=== PATIENT | male | born 1960 | race Caucasian/White ===

== ENCOUNTER → 2017-06-02 13:12 | Outpatient (CLI) | payer BC, SELFPAY ==
[2017-06-02 16:46] LABS: Alanine Aminotransferase 19 U/L (12-78); Albumin Level 3.9 gm/dL (3.4-5.0); Albumin/Globulin Ratio 1.1 (1.1-1.8); Alkaline Phosphatase 48 U/L (46-116); Anion Gap 12.3 mEq/L (5-15); Aspartate Amino Transferase 14 U/L (15-37); Bilirubin,Total 0.5 mg/dL (0.2-1.0); Blood Urea Nitrogen 9 mg/dL (7-18); Carbon Dioxide 26 mmol/L (21.0-32.0); Chloride 105 mmol/L (98-107); Creatinine,Serum 0.83 mg/dL (0.70-1.30); Estimated Glomerular Filt Rate > 60 ml/min (>60); GFR (African American) > 60 ML/MIN (>60); Globulin 3.6 gm/dl (1.3-3.2); Glucose 85 mg/dL (74-106); Potassium 4.3 mmoL/L (3.5-5.1); Sodium 139 mmol/L (136-145); Total Protein,Serum 7.5 gm/dL (6.4-8.2)
[2017-06-02 17:01] LABS: C-Reactive Protein < 0.2 mg/L (0.0-0.9)
== END ==
PROVIDERS: PCP Family Medicine; Visit Provider Physician Assistant
DX: K50.10 Crohn's disease of large intestine without complications (principal)
CPT/HCPCS: 36415; 80053; 86140

== ENCOUNTER → 2017-06-15 13:57 | Outpatient (CLI) | payer BC, SELFPAY ==
[2017-06-15 14:16] LABS: Basophils # 0.1 K/mm3 (0-0.2); Basophils % 1.1 % (0.1-2.0); Eosinophils # 0.4 K/mm3 (0.0-0.4); Eosinophils % 5.6 % (0.1-12.0); Hematocrit 45.5 % (42.0-52.0); Lymphocytes # 1.7 K/mm3 (0.7-4.5); Lymphocytes % 22.1 K/mm3 (10-50); Mean Corpuscular HGB Conc 32.9 g/dL (31.8-35.4); Mean Corpuscular Hemoglobin 28.5 pg (27.0-31.2); Mean Corpuscular Volume 86.6 fl (80-94); Mean Platelet Volume 8.2 fl (7.4-10.4); Monocytes # 0.6 K/mm3 (0.1-1.0); Neutrophils # 4.8 K/mm3 (1.8-7.8); Neutrophils % 63.2 % (37.0-80.0); Platelet Count 258 K/mm3 (142-424); Red Blood Count 5.26 M/mm3 (4.60-6.20); White Blood Count 7.6 K/mm3 (4.8-10.8)
== END ==
PROVIDERS: PCP Physician Assistant; Visit Provider Physician Assistant
DX: K50.10 Crohn's disease of large intestine without complications (principal)
CPT/HCPCS: 36415; 85025

== ENCOUNTER → 2017-09-05 12:47 | Outpatient (CLI) | payer BC, SELFPAY ==
[2017-09-05 13:07] LABS: Basophils # 0.1 K/mm3 (0-0.2); Eosinophils # 0.4 K/mm3 (0.0-0.4); Hematocrit 46.4 % (42.0-52.0); Hemoglobin 15.2 g/dL (14.1-18.0); Lymphocytes # 1.6 K/mm3 (0.7-4.5); Mean Corpuscular HGB Conc 32.8 g/dL (31.8-35.4); Mean Corpuscular Hemoglobin 29.6 pg (27.0-31.2); Mean Corpuscular Volume 90.3 fl (80-94); Monocytes # 0.5 K/mm3 (0.1-1.0); Monocytes % 7.6 % (1.7-9.3); Neutrophils # 3.5 K/mm3 (1.8-7.8); Neutrophils % 58.3 % (37.0-80.0); Platelet Count 238 K/mm3 (142-424); Red Blood Count 5.13 M/mm3 (4.60-6.20); Red Cell Distribution Width 14.1 % (11.5-17.5); White Blood Count 5.9 K/mm3 (4.8-10.8)
[2017-09-05 14:40] LABS: Alanine Aminotransferase 23 U/L (12-78); Albumin Level 3.8 gm/dL (3.4-5.0); Albumin/Globulin Ratio 1.1 (1.1-1.8); Alkaline Phosphatase 46 U/L (46-116); Anion Gap 13.5 mEq/L (5-15); Bilirubin,Total 0.2 mg/dL (0.2-1.0); Blood Urea Nitrogen 8 mg/dL (7-18); Calcium 9.1 mg/dL (8.5-10.1); Carbon Dioxide 26 mmol/L (21.0-32.0); Chloride 106 mmol/L (98-107); Creatinine,Serum 0.73 mg/dL (0.70-1.30); Estimated Glomerular Filt Rate 111 ml/min (>60); GFR (African American) 134 ML/MIN (>60); Globulin 3.6 gm/dl (1.3-3.2); Glucose 128 mg/dL (74-106); Sodium 141 mmol/L (136-145); Total Protein,Serum 7.4 gm/dL (6.4-8.2)
[2017-09-05 14:41] LABS: Potassium 4.5 mmoL/L (3.5-5.1)
[2017-09-05 14:42] LABS: Aspartate Amino Transferase 21 U/L (15-37)
== END ==
PROVIDERS: Visit Provider Physician Assistant
DX: K50.10 Crohn's disease of large intestine without complications (principal)
CPT/HCPCS: 36415; 80053; 85025

== ENCOUNTER → 2017-12-06 09:31 | Outpatient (CLI) | payer BC, SELFPAY ==
[2017-12-06 10:56] LABS: Alanine Aminotransferase 22 U/L (12-78); Albumin Level 3.7 gm/dL (3.4-5.0); Albumin/Globulin Ratio 1.1 (1.1-1.8); Alkaline Phosphatase 47 U/L (46-116); Anion Gap 8.8 mEq/L (5-15); Aspartate Amino Transferase 14 U/L (15-37); Bilirubin,Total 0.4 mg/dL (0.2-1.0); Blood Urea Nitrogen 8 mg/dL (7-18); Calcium 9.2 mg/dL (8.5-10.1); Carbon Dioxide 30 mmol/L (21.0-32.0); Chloride 110 mmol/L (98-107); Creatinine,Serum 0.85 mg/dL (0.70-1.30); Estimated Glomerular Filt Rate 93 ml/min (>60); GFR (African American) 113 ML/MIN (>60); Globulin 3.5 gm/dl (1.3-3.2); Glucose 112 mg/dL (74-106); Potassium 4.8 mmoL/L (3.5-5.1); Sodium 144 mmol/L (136-145); Total Protein,Serum 7.2 gm/dL (6.4-8.2)
== END ==
PROVIDERS: Visit Provider Physician Assistant
DX: K50.10 Crohn's disease of large intestine without complications (principal)
CPT/HCPCS: 36415; 80053

== ENCOUNTER → 2018-05-05 13:24 | Outpatient (POV) | payer BC, SELFPAY ==
[2018-05-05 13:56] LABS: Basophils # 0.1 K/mm3 (0-0.2); Eosinophils # 0.5 K/mm3 (0.0-0.4); Hematocrit 44.9 % (42.0-52.0); Hemoglobin 14.1 g/dL (14.1-18.0); Lymphocytes # 1.8 K/mm3 (0.7-4.5); Lymphocytes % 22.6 % (10-50); Mean Corpuscular HGB Conc 31.5 g/dL (31.8-35.4); Mean Corpuscular Hemoglobin 28.6 pg (27.0-31.2); Mean Platelet Volume 7.6 fl (7.4-10.4); Monocytes # 0.5 K/mm3 (0.1-1.0); Monocytes % 6.1 % (1.7-9.3); Neutrophils % 64.4 % (37.0-80.0); Platelet Count 308 K/mm3 (142-424); Red Blood Count 4.93 M/mm3 (4.60-6.20); Red Cell Distribution Width 13.8 % (11.5-17.5); White Blood Count 7.8 K/mm3 (4.8-10.8)
[2018-05-05 14:25] LABS: Alanine Aminotransferase 24 U/L (12-78); Albumin Level 3.6 gm/dL (3.4-5.0); Albumin/Globulin Ratio 0.9 (1.1-1.8); Alkaline Phosphatase 61 U/L (46-116); Anion Gap 12.3 mEq/L (5-15); Aspartate Amino Transferase 9 U/L (15-37); Bilirubin,Total 0.3 mg/dL (0.2-1.0); Blood Urea Nitrogen 12 mg/dL (7-18); Calcium 8.7 mg/dL (8.5-10.1); Carbon Dioxide 28 mmol/L (21.0-32.0); Chloride 104 mmol/L (98-107); Creatinine,Serum 0.91 mg/dL (0.70-1.30); Estimated Glomerular Filt Rate 86 ml/min (>60); GFR (African American) 104 ML/MIN (>60); Glucose 108 mg/dL (74-106); Potassium 4.3 mmoL/L (3.5-5.1); Sodium 140 mmol/L (136-145); Total Protein,Serum 7.6 gm/dL (6.4-8.2)
== END ==
PROVIDERS: PCP Family Medicine; Visit Provider Physician Assistant
DX: K50.10 Crohn's disease of large intestine without complications (principal)
CPT/HCPCS: 36415; 80053; 85025

== ENCOUNTER → 2018-11-14 10:47 | Outpatient (CLI) | payer BC, SELFPAY ==
[2018-11-14 11:28] LABS: Basophils # 0.1 K/mm3 (0-0.2); Basophils % 1.1 % (0.1-2.0); Eosinophils # 0.3 K/mm3 (0.0-0.4); Eosinophils % 5.1 % (0.1-12.0); Hematocrit 41.5 % (42.0-52.0); Hemoglobin 13.3 g/dL (14.1-18.0); Lymphocytes # 1.5 K/mm3 (0.7-4.5); Lymphocytes % 25.2 % (10-50); Mean Corpuscular HGB Conc 32.1 g/dL (31.8-35.4); Mean Corpuscular Hemoglobin 27.4 pg (27.0-31.2); Mean Corpuscular Volume 85.4 fl (80-94); Mean Platelet Volume 7.7 fl (7.4-10.4); Monocytes # 0.4 K/mm3 (0.1-1.0); Neutrophils # 3.6 K/mm3 (1.8-7.8); Neutrophils % 61.5 % (37.0-80.0); Platelet Count 241 K/mm3 (142-424); Red Blood Count 4.86 M/mm3 (4.60-6.20); Red Cell Distribution Width 13.9 % (11.5-17.5); White Blood Count 5.9 K/mm3 (4.8-10.8)
[2018-11-14 12:11] LABS: Alanine Aminotransferase 25 U/L (12-78); Albumin Level 3.5 gm/dL (3.4-5.0); Alkaline Phosphatase 46 U/L (46-116); Anion Gap 11.5 mEq/L (5-15); Aspartate Amino Transferase 13 U/L (15-37); Bilirubin,Total 0.3 mg/dL (0.2-1.0); Blood Urea Nitrogen 10 mg/dL (7-18); Calcium 8.8 mg/dL (8.5-10.1); Carbon Dioxide 28 mmol/L (21.0-32.0); Chloride 107 mmol/L (98-107); Creatinine,Serum 0.85 mg/dL (0.70-1.30); Estimated Glomerular Filt Rate 93 ml/min (>60); GFR (African American) 112 ML/MIN (>60); Globulin 3.5 gm/dl (1.3-3.2); Glucose 110 mg/dL (74-106); Potassium 4.5 mmoL/L (3.5-5.1); Sodium 142 mmol/L (136-145)
== END ==
PROVIDERS: Visit Provider Physician Assistant
DX: K50.10 Crohn's disease of large intestine without complications (principal)
CPT/HCPCS: 36415; 80053; 85025

== ENCOUNTER → 2019-06-01 11:35 | Outpatient (CLI) | payer BC, SELFPAY ==
[2019-06-01 12:04] LABS: Basophils % 0.8 % (0.1-2.0); Eosinophils # 0.5 K/mm3 (0.0-0.4); Eosinophils % 9.4 % (0.1-12.0); Hematocrit 43.9 % (42.0-52.0); Hemoglobin 14.3 g/dL (14.1-18.0); Lymphocytes # 1.3 K/mm3 (0.7-4.5); Lymphocytes % 23.2 % (10-50); Mean Corpuscular HGB Conc 32.6 g/dL (31.8-35.4); Mean Corpuscular Hemoglobin 29.1 pg (27.0-31.2); Mean Corpuscular Volume 89.2 fl (80-94); Mean Platelet Volume 8.3 fl (7.4-10.4); Monocytes # 0.4 K/mm3 (0.1-1.0); Monocytes % 7.8 % (1.7-9.3); Neutrophils # 3.3 K/mm3 (1.8-7.8); Neutrophils % 58.8 % (37.0-80.0); Platelet Count 243 K/mm3 (142-424); Red Blood Count 4.93 M/mm3 (4.60-6.20); Red Cell Distribution Width 14.1 % (11.5-17.5); White Blood Count 5.6 K/mm3 (4.8-10.8)
[2019-06-01 12:38] LABS: Alanine Aminotransferase 17 U/L (12-78); Albumin Level 3.6 gm/dL (3.4-5.0); Alkaline Phosphatase 46 U/L (46-116); Anion Gap 13.3 mEq/L (5-15); Aspartate Amino Transferase 10 U/L (15-37); Bilirubin,Total 0.3 mg/dL (0.2-1.0); Blood Urea Nitrogen 12 mg/dL (7-18); Calcium 8.7 mg/dL (8.5-10.1); Carbon Dioxide 28 mmol/L (21.0-32.0); Chloride 106 mmol/L (98-107); Creatinine,Serum 0.78 mg/dL (0.70-1.30); Estimated Glomerular Filt Rate 103 ml/min (>60); GFR (African American) 124 ML/MIN (>60); Globulin 3.5 gm/dl (1.3-3.2); Glucose 131 mg/dL (74-106); Potassium 4.3 mmoL/L (3.5-5.1); Sodium 143 mmol/L (136-145); Total Protein,Serum 7.1 gm/dL (6.4-8.2)
[2019-06-06 11:03] LABS: QuantiFERON-TB Gold Plus Negative (Negative)
== END ==
PROVIDERS: Visit Provider Physician Assistant
DX: K50.10 Crohn's disease of large intestine without complications (principal)
CPT/HCPCS: 36415; 80053; 85025; 86480

== ENCOUNTER 2019-07-18 08:57 | Outpatient (CLI) | payer BC, SELFPAY ==
[2019-07-18 08:58] VITALS: BMI 39.9
[2019-07-18 09:16] LABS: Basophils # 0.1 K/mm3 (0-0.2); Basophils % 1.1 % (0.1-2.0); Eosinophils # 0.7 K/mm3 (0.0-0.4); Eosinophils % 10.6 % (0.1-12.0); Hematocrit 45.5 % (42.0-52.0); Hemoglobin 14.9 g/dL (14.1-18.0); Lymphocytes # 1.6 K/mm3 (0.7-4.5); Lymphocytes % 23.7 % (10-50); Mean Corpuscular HGB Conc 32.6 g/dL (31.8-35.4); Mean Corpuscular Hemoglobin 29.5 pg (27.0-31.2); Mean Corpuscular Volume 90.5 fl (80-94); Mean Platelet Volume 8.6 fl (7.4-10.4); Monocytes # 0.4 K/mm3 (0.1-1.0); Monocytes % 6.2 % (1.7-9.3); Neutrophils # 3.9 K/mm3 (1.8-7.8); Neutrophils % 58.4 % (37.0-80.0); Platelet Count 263 K/mm3 (142-424); Red Blood Count 5.03 M/mm3 (4.60-6.20); White Blood Count 6.7 K/mm3 (4.8-10.8)
[2019-07-18 09:25] VITALS: BP 150/72; PULSE 87; RESP 18
[2019-07-18 09:26] LABS: Alanine Aminotransferase 26 U/L (12-78); Albumin Level 4.2 g/dl (3.5-5.0); Albumin/Globulin Ratio 1.3 (1.1-1.8); Alkaline Phosphatase 44 U/L (38-126); Anion Gap 10.9 mEq/L (5-15); Aspartate Amino Transferase 24 U/L (17-59); Bilirubin,Total 0.4 mg/dl (0.2-1.3); Blood Urea Nitrogen 9 mg/dl (9-20); Calcium 9.3 mg/dl (8.4-10.2); Carbon Dioxide 27 mmol/L (22.0-30.0); Chloride 104 mmol/L (98-107); Creatinine Clearance Estimated 185 mL/min (50-200); Estimated Glomerular Filt Rate 99 ml/min (>60); GFR (African American) 120 ML/MIN (>60); Globulin 3.3 g/dL (1.3-3.2); Glucose 154 mg/dl (74-100); Potassium 3.9 mmoL/L (3.5-5.1); Sodium 138 mmol/L (136-145); Total Protein,Serum 7.5 g/dl (6.3-8.2)
[2019-07-18 09:31] LABS: C-Reactive Protein 0.8 mg/L (0-4)
[2019-07-18 09:40] VITALS: BP 108/73; PULSE 85; RESP 18
[2019-07-18 09:55] VITALS: BP 107/62; PULSE 80; RESP 18
[2019-07-18 10:07] VITALS: BP 107/62; PULSE 80; RESP 18
== END 2019-07-18 10:07 | disposition home or self-care (01) ==
LOC: INF 08:57
PROVIDERS: Visit Provider Physician Assistant
DX: K50.10 Crohn's disease of large intestine without complications (principal)
CPT/HCPCS: 80053; 85025; 86140; 96413; J3380

== ENCOUNTER 2019-08-01 09:05 | Outpatient (CLI) | payer BC, SELFPAY ==
[2019-08-01 09:06] VITALS: BMI 39.9
[2019-08-01 09:21] LABS: Basophils # 0.1 K/mm3 (0-0.2); Chloride 106 mmol/L (98-107); Eosinophils # 0.7 K/mm3 (0.0-0.4); Eosinophils % 11.4 % (0.1-12.0); Hemoglobin 14.5 g/dL (14.1-18.0); Lymphocytes # 1.5 K/mm3 (0.7-4.5); Lymphocytes % 24.1 % (10-50); Mean Corpuscular Hemoglobin 29.2 pg (27.0-31.2); Mean Corpuscular Volume 88.3 fl (80-94); Monocytes # 0.4 K/mm3 (0.1-1.0); Monocytes % 5.7 % (1.7-9.3); Neutrophils # 3.6 K/mm3 (1.8-7.8); Neutrophils % 57.7 % (37.0-80.0); Platelet Count 237 K/mm3 (142-424); Potassium 4.1 mmoL/L (3.5-5.1); Red Blood Count 4.98 M/mm3 (4.60-6.20); Sodium 140 mmol/L (136-145); White Blood Count 6.2 K/mm3 (4.8-10.8)
[2019-08-01 09:23] LABS: Blood Urea Nitrogen 9 mg/dl (9-20); Creatinine Clearance Estimated 185 mL/min (50-200); Estimated Glomerular Filt Rate 99 ml/min (>60); GFR (African American) 120 ML/MIN (>60)
[2019-08-01 09:24] LABS: Alanine Aminotransferase 24 U/L (12-78); Albumin Level 4.1 g/dl (3.5-5.0); Albumin/Globulin Ratio 1.3 (1.1-1.8); Alkaline Phosphatase 43 U/L (38-126); Anion Gap 10.1 mEq/L (5-15); Aspartate Amino Transferase 25 U/L (17-59); Bilirubin,Total 0.5 mg/dl (0.2-1.3); Calcium 9.2 mg/dl (8.4-10.2); Carbon Dioxide 28 mmol/L (22.0-30.0); Globulin 3.1 g/dL (1.3-3.2); Glucose 134 mg/dl (74-100); Total Protein,Serum 7.2 g/dl (6.3-8.2)
[2019-08-01 09:49] VITALS: BP 148/99; PULSE 78; RESP 18; TEMP 36.8; O2SAT 96
[2019-08-01 09:53] LABS: C-Reactive Protein 1.4 mg/L (0-4)
[2019-08-01 10:19] VITALS: BP 134/94; PULSE 72; RESP 18; O2SAT 97
[2019-08-01 10:30] VITALS: BP 151/92; PULSE 80; RESP 18; O2SAT 97
== END 2019-08-01 10:30 | disposition home or self-care (01) ==
LOC: INF 09:05
PROVIDERS: Visit Provider Physician Assistant
DX: K50.10 Crohn's disease of large intestine without complications (principal)
CPT/HCPCS: 80053; 85025; 86140; 96413; J3380

== ENCOUNTER 2019-08-29 08:49 | Outpatient (CLI) | payer BC, SELFPAY ==
[2019-08-29 08:50] VITALS: BMI 39.9
[2019-08-29 09:09] LABS: Basophils # 0.1 K/mm3 (0-0.2); Eosinophils # 0.7 K/mm3 (0.0-0.4); Eosinophils % 10.3 % (0.1-12.0); Hematocrit 43.8 % (42.0-52.0); Hemoglobin 14.3 g/dL (14.1-18.0); Lymphocytes # 1.4 K/mm3 (0.7-4.5); Lymphocytes % 22.2 % (10-50); Mean Corpuscular HGB Conc 32.7 g/dL (31.8-35.4); Mean Corpuscular Volume 88.8 fl (80-94); Mean Platelet Volume 8.4 fl (7.4-10.4); Monocytes # 0.4 K/mm3 (0.1-1.0); Neutrophils # 3.9 K/mm3 (1.8-7.8); Neutrophils % 60.4 % (37.0-80.0); Platelet Count 224 K/mm3 (142-424); Red Blood Count 4.94 M/mm3 (4.60-6.20); Red Cell Distribution Width 13.8 % (11.5-17.5); White Blood Count 6.4 K/mm3 (4.8-10.8)
[2019-08-29 09:13] LABS: Chloride 106 mmol/L (98-107); Sodium 140 mmol/L (136-145)
[2019-08-29 09:16] LABS: Alanine Aminotransferase 35 U/L (12-78); Albumin Level 4.2 g/dl (3.5-5.0); Albumin/Globulin Ratio 1.4 (1.1-1.8); Alkaline Phosphatase 53 U/L (38-126); Aspartate Amino Transferase 39 U/L (17-59); Bilirubin,Total 0.4 mg/dl (0.2-1.3); Blood Urea Nitrogen 9 mg/dl (9-20); Carbon Dioxide 26 mmol/L (22.0-30.0); Creatinine Clearance Estimated 211 mL/min (50-200); Estimated Glomerular Filt Rate 116 ml/min (>60); GFR (African American) 140 ML/MIN (>60); Globulin 3.1 g/dL (1.3-3.2); Glucose 128 mg/dl (74-100); Total Protein,Serum 7.3 g/dl (6.3-8.2)
[2019-08-29 09:22] LABS: C-Reactive Protein 3.2 mg/L (0-4)
[2019-08-29 09:28] VITALS: BP 153/85; PULSE 89; RESP 18; TEMP 36.6; O2SAT 96
[2019-08-29 10:09] VITALS: BP 150/73; PULSE 90; RESP 18; O2SAT 97
== END 2019-08-29 10:09 | disposition home or self-care (01) ==
LOC: INF 08:49
PROVIDERS: Visit Provider Physician Assistant
DX: K50.10 Crohn's disease of large intestine without complications (principal)
CPT/HCPCS: 80053; 85025; 86140; 96413; J3380

== ENCOUNTER 2019-10-24 09:09 | Outpatient (CLI) | payer BC, SELFPAY ==
[2019-10-24 09:12] VITALS: BMI 39.9
[2019-10-24 09:28] LABS: Basophils # 0.2 K/mm3 (0-0.2); Basophils % 2.7 % (0.1-2.0); Eosinophils # 0.7 K/mm3 (0.0-0.4); Eosinophils % 9.8 % (0.1-12.0); Hematocrit 42.1 % (42.0-52.0); Hemoglobin 14.6 g/dL (14.1-18.0); Lymphocytes # 1.9 K/mm3 (0.7-4.5); Lymphocytes % 27.2 % (10-50); Mean Corpuscular HGB Conc 34.7 g/dL (31.8-35.4); Mean Corpuscular Hemoglobin 29.8 pg (27.0-31.2); Mean Corpuscular Volume 85.9 fl (80-94); Mean Platelet Volume 8.3 fl (7.4-10.4); Monocytes # 0.5 K/mm3 (0.1-1.0); Monocytes % 6.9 % (1.7-9.3); Neutrophils # 3.7 K/mm3 (1.8-7.8); Neutrophils % 53.3 % (37.0-80.0); Platelet Count 239 K/mm3 (142-424); Red Cell Distribution Width 14.1 % (11.5-17.5); White Blood Count 6.9 K/mm3 (4.8-10.8)
[2019-10-24 09:40] VITALS: BP 134/81; PULSE 78; RESP 18; TEMP 36.6; O2SAT 98
[2019-10-24 10:09] LABS: Chloride 106 mmol/L (98-107); Sodium 140 mmol/L (136-145)
[2019-10-24 10:10] LABS: Potassium 3.9 mmoL/L (3.5-5.1)
[2019-10-24 10:12] LABS: Alanine Aminotransferase 31 U/L (12-78); Albumin/Globulin Ratio 1.2 (1.1-1.8); Alkaline Phosphatase 60 U/L (38-126); Anion Gap 10.9 mEq/L (5-15); Aspartate Amino Transferase 29 U/L (17-59); Bilirubin,Total 0.8 mg/dl (0.2-1.3); Blood Urea Nitrogen 11 mg/dl (9-20); Carbon Dioxide 27 mmol/L (22.0-30.0); Creatinine Clearance Estimated 185 mL/min (50-200); Estimated Glomerular Filt Rate 99 ml/min (>60); GFR (African American) 120 ML/MIN (>60); Globulin 3.3 g/dL (1.3-3.2); Total Protein,Serum 7.3 g/dl (6.3-8.2)
[2019-10-24 10:13] LABS: Calcium 8.9 mg/dl (8.4-10.2); Glucose 128 mg/dl (74-100)
[2019-10-24 10:14] VITALS: BP 124/71; PULSE 68; RESP 18; O2SAT 96
[2019-10-24 10:18] LABS: C-Reactive Protein 3.3 mg/L (0-4)
== END 2019-10-24 10:14 | disposition home or self-care (01) ==
LOC: INF 09:09
PROVIDERS: Visit Provider Physician Assistant
DX: K50.10 Crohn's disease of large intestine without complications (principal)
CPT/HCPCS: 36415; 80053; 85025; 86140; 96413; J3380

== ENCOUNTER 2019-12-19 08:45 | Outpatient (CLI) | payer BC, SELFPAY ==
[2019-12-19 08:47] VITALS: BMI 39.7
[2019-12-19 09:18] VITALS: BP 135/89; PULSE 76; RESP 18; TEMP 36.3; O2SAT 96
[2019-12-19 09:25] LABS: Basophils # 0.1 K/mm3 (0-0.2); Basophils % 0.9 % (0.1-2.0); Eosinophils # 0.6 K/mm3 (0.0-0.4); Eosinophils % 9.8 % (0.1-12.0); Hematocrit 42.8 % (42.0-52.0); Hemoglobin 14.4 g/dL (14.1-18.0); Lymphocytes # 1.7 K/mm3 (0.7-4.5); Lymphocytes % 27.7 % (10-50); Mean Corpuscular HGB Conc 33.6 g/dL (31.8-35.4); Mean Corpuscular Hemoglobin 29.1 pg (27.0-31.2); Mean Corpuscular Volume 86.8 fl (80-94); Mean Platelet Volume 8.6 fl (7.4-10.4); Monocytes # 0.4 K/mm3 (0.1-1.0); Neutrophils # 3.5 K/mm3 (1.8-7.8); Neutrophils % 55.6 % (37.0-80.0); Platelet Count 217 K/mm3 (142-424); Red Blood Count 4.93 M/mm3 (4.60-6.20); Red Cell Distribution Width 14.4 % (11.5-17.5); White Blood Count 6.3 K/mm3 (4.8-10.8)
[2019-12-19 09:32] LABS: Chloride 105 mmol/L (98-107); Potassium 4.1 mmoL/L (3.5-5.1); Sodium 141 mmol/L (136-145)
[2019-12-19 09:34] LABS: Alanine Aminotransferase 24 U/L (12-78); Aspartate Amino Transferase 28 U/L (17-59); Blood Urea Nitrogen 10 mg/dl (9-20); Creatinine Clearance Estimated 210 mL/min (50-200); Estimated Glomerular Filt Rate 116 ml/min (>60); GFR (African American) 140 ML/MIN (>60)
[2019-12-19 09:35] LABS: Albumin/Globulin Ratio 1.2 (1.1-1.8); Alkaline Phosphatase 48 U/L (38-126); Anion Gap 13.1 mEq/L (5-15); Bilirubin,Total 0.5 mg/dl (0.2-1.3); Calcium 9.2 mg/dl (8.4-10.2); Carbon Dioxide 27 mmol/L (22.0-30.0); Globulin 3.3 g/dL (1.3-3.2); Glucose 130 mg/dl (74-100); Total Protein,Serum 7.3 g/dl (6.3-8.2)
[2019-12-19 09:40] LABS: C-Reactive Protein 1.2 mg/L (0-4)
[2019-12-19 10:00] VITALS: BP 131/82; PULSE 79; RESP 18; O2SAT 97
== END 2019-12-19 10:00 | disposition home or self-care (01) ==
LOC: INF 08:45
PROVIDERS: Visit Provider Physician Assistant
DX: K50.10 Crohn's disease of large intestine without complications (principal)
CPT/HCPCS: 36415; 80053; 85025; 86140; 96413; J3380

== ENCOUNTER 2020-02-13 09:07 | Outpatient (CLI) | payer BC, SELFPAY ==
[2020-02-13 09:11] VITALS: BMI 39.7
[2020-02-13 09:30] VITALS: BP 160/104; PULSE 85; RESP 18; TEMP 36.4; O2SAT 96
[2020-02-13 09:31] LABS: Basophils # 0.1 K/mm3 (0-0.2); Basophils % 1.2 % (0.1-2.0); Eosinophils # 0.6 K/mm3 (0.0-0.4); Hematocrit 45.4 % (42.0-52.0); Hemoglobin 15.3 g/dL (14.1-18.0); Lymphocytes # 1.8 K/mm3 (0.7-4.5); Mean Corpuscular HGB Conc 33.8 g/dL (31.8-35.4); Mean Corpuscular Hemoglobin 29.5 pg (27.0-31.2); Mean Corpuscular Volume 87.4 fl (80-94); Mean Platelet Volume 8.1 fl (7.4-10.4); Monocytes # 0.5 K/mm3 (0.1-1.0); Monocytes % 6.9 % (1.7-9.3); Neutrophils # 3.6 K/mm3 (1.8-7.8); Neutrophils % 55.9 % (37.0-80.0); Platelet Count 228 K/mm3 (142-424); Red Blood Count 5.19 M/mm3 (4.60-6.20); Red Cell Distribution Width 14.2 % (11.5-17.5); White Blood Count 6.5 K/mm3 (4.8-10.8)
[2020-02-13 09:34] LABS: Chloride 104 mmol/L (98-107); Potassium 4.3 mmoL/L (3.5-5.1); Sodium 141 mmol/L (136-145)
[2020-02-13 09:37] LABS: Alanine Aminotransferase 21 U/L (12-78); Albumin Level 4.4 g/dl (3.5-5.0); Albumin/Globulin Ratio 1.3 (1.1-1.8); Alkaline Phosphatase 48 U/L (38-126); Anion Gap 14.3 mEq/L (5-15); Aspartate Amino Transferase 23 U/L (17-59); Bilirubin,Total 0.6 mg/dl (0.2-1.3); Blood Urea Nitrogen 9 mg/dl (9-20); Calcium 9.7 mg/dl (8.4-10.2); Carbon Dioxide 27 mmol/L (22.0-30.0); Creatinine Clearance Estimated 184 mL/min (50-200); Estimated Glomerular Filt Rate 99 ml/min (>60); GFR (African American) 120 ML/MIN (>60); Globulin 3.4 g/dL (1.3-3.2); Glucose 133 mg/dl (74-100); Total Protein,Serum 7.8 g/dl (6.3-8.2)
[2020-02-13 09:43] LABS: C-Reactive Protein 1.9 mg/L (0-4)
[2020-02-13 10:00] VITALS: BP 159/97; PULSE 75; RESP 18; O2SAT 97
[2020-02-13 10:10] VITALS: BP 155/99; PULSE 81; RESP 18; O2SAT 97
== END 2020-02-13 10:15 | disposition home or self-care (01) ==
LOC: INF 09:07
PROVIDERS: Visit Provider Physician Assistant
DX: K50.90 Crohn's disease, unspecified, without complications (principal)
CPT/HCPCS: 80053; 85025; 86140; 96413; J3380

== ENCOUNTER 2020-04-09 08:45 | Outpatient (CLI) | payer BC, SELFPAY ==
[2020-04-09 08:54] VITALS: BMI 39.6
[2020-04-09 09:40] VITALS: BP 131/87; PULSE 69; RESP 18; TEMP 36.6; O2SAT 96
[2020-04-09 09:54] LABS: Basophils # 0.1 K/mm3 (0-0.2); Basophils % 1.3 % (0.1-2.0); Eosinophils # 0.9 K/mm3 (0.0-0.4); Eosinophils % 14.2 % (0.1-12.0); Hematocrit 42.2 % (42.0-52.0); Hemoglobin 13.4 g/dL (14.1-18.0); Lymphocytes # 1.5 K/mm3 (0.7-4.5); Lymphocytes % 23.2 % (10-50); Mean Corpuscular HGB Conc 31.7 g/dL (31.8-35.4); Mean Corpuscular Hemoglobin 27.8 pg (27.0-31.2); Mean Corpuscular Volume 87.7 fl (80-94); Monocytes # 0.4 K/mm3 (0.1-1.0); Neutrophils # 3.4 K/mm3 (1.8-7.8); Neutrophils % 54.3 % (37.0-80.0); Platelet Count 203 K/mm3 (142-424); Red Blood Count 4.81 M/mm3 (4.60-6.20); Red Cell Distribution Width 13.8 % (11.5-17.5); White Blood Count 6.3 K/mm3 (4.8-10.8)
[2020-04-09 09:55] VITALS: BP 130/87; PULSE 70; RESP 18
[2020-04-09 10:01] LABS: Chloride 107 mmol/L (98-107); Sodium 141 mmol/L (136-145)
[2020-04-09 10:04] LABS: Alanine Aminotransferase 18 U/L (12-78); Albumin Level 4.1 g/dl (3.5-5.0); Albumin/Globulin Ratio 1.2 (1.1-1.8); Alkaline Phosphatase 50 U/L (38-126); Aspartate Amino Transferase 24 U/L (17-59); Bilirubin,Total 0.5 mg/dl (0.2-1.3); Blood Urea Nitrogen 10 mg/dl (9-20); Carbon Dioxide 27 mmol/L (22.0-30.0); Creatinine Clearance Estimated 183 mL/min (50-200); Estimated Glomerular Filt Rate 99 ml/min (>60); GFR (African American) 120 ML/MIN (>60); Globulin 3.3 g/dL (1.3-3.2); Total Protein,Serum 7.4 g/dl (6.3-8.2)
[2020-04-09 10:05] LABS: Calcium 9.2 mg/dl (8.4-10.2); Glucose 125 mg/dl (74-100)
[2020-04-09 10:09] LABS: C-Reactive Protein 1.7 mg/L (0-4)
[2020-04-09 10:10] VITALS: BP 126/80; PULSE 63; RESP 18
== END 2020-04-09 10:20 | disposition home or self-care (01) ==
LOC: INF 08:57
PROVIDERS: Visit Provider Physician Assistant
DX: K50.90 Crohn's disease, unspecified, without complications (principal)
CPT/HCPCS: 80053; 85025; 86140; 96413; J3380

== ENCOUNTER 2020-06-04 08:50 | Outpatient (CLI) | payer BC, SELFPAY ==
[2020-06-04 08:59] VITALS: BMI 39.6
[2020-06-04 09:29] LABS: Basophils # 0.1 K/mm3 (0-0.2); Basophils % 1.2 % (0.1-2.0); Eosinophils # 0.9 K/mm3 (0.0-0.4); Eosinophils % 12.5 % (0.1-12.0); Hematocrit 44.1 % (42.0-52.0); Hemoglobin 15.3 g/dL (14.1-18.0); Lymphocytes # 1.9 K/mm3 (0.7-4.5); Lymphocytes % 25.6 % (10-50); Mean Corpuscular HGB Conc 34.7 g/dL (31.8-35.4); Mean Corpuscular Hemoglobin 29.3 pg (27.0-31.2); Mean Corpuscular Volume 84.3 fl (80-94); Mean Platelet Volume 8.6 fl (7.4-10.4); Monocytes # 0.5 K/mm3 (0.1-1.0); Monocytes % 6.7 % (1.7-9.3); Neutrophils # 4.1 K/mm3 (1.8-7.8); Platelet Count 254 K/mm3 (142-424); Red Blood Count 5.23 M/mm3 (4.60-6.20); Red Cell Distribution Width 14.4 % (11.5-17.5); White Blood Count 7.5 K/mm3 (4.8-10.8)
[2020-06-04 09:38] LABS: Chloride 105 mmol/L (98-107); Sodium 140 mmol/L (136-145)
[2020-06-04 09:40] VITALS: BP 146/95; PULSE 88; RESP 18; TEMP 36.7; O2SAT 98
[2020-06-04 09:41] LABS: Alanine Aminotransferase 20 U/L (12-78); Albumin Level 4.3 g/dl (3.5-5.0); Albumin/Globulin Ratio 1.1 (1.1-1.8); Alkaline Phosphatase 59 U/L (38-126); Aspartate Amino Transferase 23 U/L (17-59); Bilirubin,Total 0.6 mg/dl (0.2-1.3); Blood Urea Nitrogen 10 mg/dl (9-20); Carbon Dioxide 27 mmol/L (22.0-30.0); Creatinine Clearance Estimated 183 mL/min (50-200); Estimated Glomerular Filt Rate 99 ml/min (>60); GFR (African American) 120 ML/MIN (>60); Globulin 3.8 g/dL (1.3-3.2); Total Protein,Serum 8.1 g/dl (6.3-8.2)
[2020-06-04 09:42] LABS: Calcium 9.3 mg/dl (8.4-10.2); Glucose 145 mg/dl (74-100)
[2020-06-04 09:55] VITALS: BP 133/89; PULSE 82; RESP 18; O2SAT 95
[2020-06-04 09:56] LABS: C-Reactive Protein 1.7 mg/L (0-4)
[2020-06-04 10:15] VITALS: BP 137/83; PULSE 78; RESP 18
[2020-06-08 08:05] LABS: QuantiFERON-TB Gold Plus Negative (Negative)
== END 2020-06-04 10:30 | disposition home or self-care (01) ==
LOC: INF 08:57
PROVIDERS: Visit Provider Physician Assistant
DX: K50.10 Crohn's disease of large intestine without complications (principal)
CPT/HCPCS: 80053; 85025; 86140; 86480; 96413; J3380

== ENCOUNTER → 2020-07-30 19:43 | Outpatient (CLI) | payer BC, SELFPAY ==
[2020-07-30 20:10] LABS: Basophils # 0.1 K/mm3 (0-0.2); Eosinophils # 0.7 K/mm3 (0.0-0.4); Hematocrit 41.6 % (42.0-52.0); Hemoglobin 13.9 g/dL (14.1-18.0); Lymphocytes # 2.5 K/mm3 (0.7-4.5); Lymphocytes % 30.6 % (10-50); Mean Corpuscular HGB Conc 33.4 g/dL (31.8-35.4); Mean Corpuscular Hemoglobin 28.6 pg (27.0-31.2); Mean Corpuscular Volume 85.6 fl (80-94); Mean Platelet Volume 10.9 fl (7.4-10.4); Monocytes # 0.6 K/mm3 (0.1-1.0); Monocytes % 7.2 % (1.7-9.3); Neutrophils # 4.3 K/mm3 (1.8-7.8); Neutrophils % 53.2 % (37.0-80.0); Platelet Count 235 K/mm3 (142-424); Red Blood Count 4.86 M/mm3 (4.60-6.20); Red Cell Distribution Width 14.1 % (11.5-17.5); White Blood Count 8.2 K/mm3 (4.8-10.8)
== END ==
PROVIDERS: Visit Provider Physician Assistant
DX: K50.10 Crohn's disease of large intestine without complications (principal); I10 Essential (primary) hypertension; E55.9 Vitamin D deficiency, unspecified; E66.01 Morbid (severe) obesity due to excess calories; M25.549 Pain in joints of unspecified hand; R21 Rash and other nonspecific skin eruption
CPT/HCPCS: 80053; 85025; 86140

== ENCOUNTER → 2022-06-24 12:54 | Outpatient (CLI) | payer BC, SELFPAY ==
[2022-06-26 23:49] LABS: QuantiFERON-TB Gold Plus Negative (Negative)
== END ==
PROVIDERS: PCP Family Medicine; Visit Provider Physician Assistant
DX: K50.80 Crohn's disease of both small and large intestine without complications (principal)
CPT/HCPCS: 36415; 86480

== ENCOUNTER 2024-01-06 08:01 | Outpatient (CLI) | payer BC, SELFPAY ==
[2024-01-06 08:14] VITALS: BMI 36.2
[2024-01-06 08:35] LABS: Basophils # 0.1 K/mm3 (0-0.2); Basophils % 1.3 % (0.1-2.0); Eosinophils # 1.1 K/mm3 (0.0-0.4); Hemoglobin 14.3 g/dL (14.1-18.0); Lymphocytes # 1.6 K/mm3 (0.7-4.5); Mean Corpuscular HGB Conc 31.8 g/dL (31.8-35.4); Mean Corpuscular Hemoglobin 29.2 pg (27.0-31.2); Mean Corpuscular Volume 91.9 fl (80-94); Mean Platelet Volume 7.9 fl (7.4-10.4); Monocytes # 0.3 K/mm3 (0.1-1.0); Monocytes % 5.2 % (1.7-9.3); Neutrophils # 3.1 K/mm3 (1.8-7.8); Neutrophils % 50.5 % (37.0-80.0); Platelet Count 248 K/mm3 (142-424); Red Cell Distribution Width 14.2 % (11.5-17.5); White Blood Count 6.2 K/mm3 (4.8-10.8)
[2024-01-06] MEDS: VEDOLIZUMAB 300 MG in 0.9 % SODIUM CHLORIDE 250 ML 500 MG IV (08:40)
[2024-01-06] MEDS: SODIUM CHLORIDE 0.9% 50ML BAG 50 ML IV (08:40)
[2024-01-06 08:45] VITALS: BP 148/96; PULSE 81; RESP 18; O2SAT 96
[2024-01-06 08:46] LABS: Chloride 111 mmol/L (98-107); Potassium 3.5 mmoL/L (3.5-5.1); Sodium 140 mmol/L (136-145)
[2024-01-06 08:48] LABS: Blood Urea Nitrogen 8 mg/dl (9-20); Creatinine Clearance Estimated 128 mL/min (50-200); Estimated Glomerular Filt Rate 98 ml/min (>60); GFR (African American) 119 ML/MIN (>60)
[2024-01-06 08:49] LABS: Alanine Aminotransferase 25 U/L (12-78); Albumin/Globulin Ratio 1.5 (1.1-1.8); Alkaline Phosphatase 47 U/L (38-126); Anion Gap 7.5 mEq/L (5-15); Aspartate Amino Transferase 30 U/L (17-59); Bilirubin,Total 0.8 mg/dl (0.2-1.3); Calcium 8.8 mg/dl (8.4-10.2); Carbon Dioxide 25 mmol/L (22.0-30.0); Globulin 2.7 g/dL (1.3-3.2); Glucose 135 mg/dl (74-100); Total Protein,Serum 6.7 g/dl (6.3-8.2)
[2024-01-06 08:54] LABS: C-Reactive Protein 0.6 mg/L (0-4)
[2024-01-06 09:30] VITALS: BP 144/81; PULSE 87; RESP 18; O2SAT 97
== END 2024-01-06 09:30 | disposition home or self-care (01) ==
LOC: INF 08:01
PROVIDERS: PCP Family Medicine; Visit Provider Physician Assistant
DX: K50.80 Crohn's disease of both small and large intestine without complications (principal)
CPT/HCPCS: 80053; 85025; 86140; 96413; J3380

== ENCOUNTER 2024-03-02 08:19 | Outpatient (CLI) | payer BC, SELFPAY ==
[2024-03-02] MEDS: VEDOLIZUMAB 300 MG in 0.9 % SODIUM CHLORIDE 250 ML 500 MG IV (08:45)
[2024-03-02] MEDS: SODIUM CHLORIDE 0.9% 50ML BAG 50 ML IV (08:45)
[2024-03-02 08:51] VITALS: BP 149/94; PULSE 74; RESP 18; TEMP 36.5; O2SAT 95
[2024-03-02 09:19] VITALS: BMI 36.2
[2024-03-02 09:20] VITALS: BP 149/94; PULSE 68; RESP 20; TEMP 36.4; O2SAT 97
[2024-03-02 09:34] LABS: Basophils # 0.1 K/mm3 (0-0.2); Basophils % 1.2 % (0.1-2.0); Eosinophils # 1.4 K/mm3 (0.0-0.4); Eosinophils % 20.1 % (0.1-12.0); Hematocrit 44.5 % (42.0-52.0); Hemoglobin 14.5 g/dL (14.1-18.0); Lymphocytes # 1.9 K/mm3 (0.7-4.5); Mean Corpuscular HGB Conc 32.5 g/dL (31.8-35.4); Mean Corpuscular Hemoglobin 29.9 pg (27.0-31.2); Mean Platelet Volume 7.6 fl (7.4-10.4); Monocytes # 0.5 K/mm3 (0.1-1.0); Monocytes % 6.7 % (1.7-9.3); Neutrophils # 3.1 K/mm3 (1.8-7.8); Platelet Count 245 K/mm3 (142-424); Red Blood Count 4.84 M/mm3 (4.60-6.20); Red Cell Distribution Width 14.2 % (11.5-17.5); White Blood Count 6.9 K/mm3 (4.8-10.8)
[2024-03-02 09:37] LABS: Alanine Aminotransferase 21 U/L (12-78); Albumin Level 4.1 g/dl (3.5-5.0); Albumin/Globulin Ratio 1.6 (1.1-1.8); Alkaline Phosphatase 49 U/L (38-126); Anion Gap 8.7 mEq/L (5-15); Aspartate Amino Transferase 31 U/L (17-59); Blood Urea Nitrogen 12 mg/dl (9-20); Calcium 9.1 mg/dl (8.4-10.2); Carbon Dioxide 25 mmol/L (22.0-30.0); Chloride 106 mmol/L (98-107); Creatinine Clearance Estimated 128 mL/min (50-200); Estimated Glomerular Filt Rate 114 ml/min (>60); GFR (African American) 138 ML/MIN (>60); Globulin 2.6 g/dL (1.3-3.2); Glucose 107 mg/dl (74-100); Potassium 3.7 mmoL/L (3.5-5.1); Sodium 136 mmol/L (136-145); Total Protein,Serum 6.7 g/dl (6.3-8.2)
[2024-03-02 09:42] LABS: C-Reactive Protein 0.8 mg/L (0-4)
== END 2024-03-02 09:30 | disposition home or self-care (01) ==
LOC: INF 08:20
PROVIDERS: PCP Family Medicine; Visit Provider Physician Assistant
DX: K50.10 Crohn's disease of large intestine without complications (principal)
CPT/HCPCS: 80053; 85025; 86140; 96413; J3380

== ENCOUNTER 2024-04-30 08:19 | Outpatient (CLI) | payer BC, SELFPAY ==
--- OUTSIDE RECORDS SUMMARY | 2024-04-30 08:23 | XMS_ITS | Encounter Summary ---
Author Organization [facility] Address [address] [id number] Care Team Providers Care Director Software Name Role Phone Zac Alexander MD Primary Care Provider + [phone] Encounter Details Date Type Department Care Team (Late st Contact Info) Description 04/23/2024 Telephone [facility] Medicine Specialties [address], [address] [place] [address] Saba Boateng PA [id number] [place] [address] Social History Tobacco Use Types Packs/Day Years Used Date Smoking Tobacco: Never Passive Smoke Exposure: Never Smokeless Tobacco: Current Chew Alcohol Use Standard Drinks/Week Comments Not Currently 0 (1 standard drink = 0.6 oz pure alcohol) Alcoholic Drinks/day: Minimum alcohol consumption PHQ-2 Answer Date Recorded Patient Health Questionnaire-2 Score 0 11/08/2023 PHQ-2A Answer Date Recorded Patient Health Questionnaire-2 Score 0 05/05/2023 Sex and Gender Information Value Date Recorded Sex Assigned at Not on file Legal Sex Male 6:09 PM EDT Gender Identity Not on file Sexual Orientation Not on file documented as of this encounter Plan of Treatment Upcoming Encounters Date Type Department Care Team (Late st Contact Info) Description 05/10/2024 10:20 AM EST Office Visit [facility] Medicine Specialties [address] [place] [address] Saba Boateng PA [phone] [place] [address] documented as of this encounter Visit Diagnoses Not on filedocumented in this encounter Additional Health Concerns Assessment Noted Time A fall risk assessment has been complete d for the patient 11/08/2023 9:58 AM EDT A Body Mass Index follow-up plan has been documented for the patient 11/08/2023 10:45 AM EDT documented as of this encounter Care Teams Director Software Relationship Specialty Start Date End Date Zac Alexander MD [address] [facility] [address] [address] PCP - General 05/05/23 documented as of this encounter
--- OUTSIDE RECORDS SUMMARY | 2024-04-30 08:23 | XMS_ITS | Clinical Summary ---
Author Organization [facility] Address [address] [place] [address] Care Team Providers Care Control Tower Operator Name Role Phone Zac Alexander MD Primary Care Provider + [phone] Allergies No known active allergies Medications losartan (Cozaar) 50 MG tablet TAKE 1 TABLET DAILY. 8 Active [facility]-CqUi-NaSu lf-Na Asc-C 100 g reconstituted solution At 5PM on 03/17 , mix and drink 1st dose. Mix and drink 2nd dose 6hrs before leaving house on 03/18. 1 each 2 Active Additional Information Patient not taking.Reported on 05/05/2023 cyanocobalamin 1000 MCG tabletIndications :Crohn's disease of both small and large intestine without complication (CMS/HCC) Take 1 tablet (1,000 mcg) by mouth 1 (one) time each day. 30 tablet 11 3 024 Active Additional Information Patient not taking.Reported on 11/08/2023 Vedolizumab (Entyvio) 108 MG/0.68ML solution pen-injector Inject 108 mg under the skin every 14 (fourteen) days. 1.36 mL 5 4 Active Active Problems Problem Noted Date Diagnosed Date Crohn's disease of both smal l and large intestine without complication 05/08/2021 Encounters Date Type Department Care Team Description 04/23/2024 Orders Only [facility] Medicine Specialties [address] [place] [address] Saba Boateng, PA Crohn's disease of both small and large intestine without complication (CMS/HCC) (Primary Dx) 04/23/2024 Telephone [facility] Medicine Specialties [address], [address] [place] [address] Saba Boateng PA 04/08/2024 Orders Only [facility] Medicine Specialties [address] [place] [address] Saba Boateng PA from Last 3 Months Immunizations Name Administration Dates Next Due Hep A, Adult 08/07/2018,02/06/2018 Influenza, injectable, quadrivalent 01/29,02/19/2021,02/22/2019,2017,02/24/2017 Kim COVID-19 Vaccine (Bl ue Cap) 18+ 04/17/2021,08/06/2020 TD (adult), 2 Lf tetanus tox oid, preservative free, adsorbed 08/07/1996 Tdap 08/15/2019 Family History Medical History Relation Name Comments Diabetes Father malu Relation Name Status Comments Father malu Social History Tobacco Use Types Packs/Day Years [...] on file Sexual Orientation Not on file Last Filed Vital Signs Vital Sign Reading Time Taken Comments Blood Pressure 160/98 11/08/2023 10:48 AM EDT Pulse 74 11/08/2023 10:48 AM EDT Temperature 36.7 ??C (98.1 ??F) 11/08/2023 9:53 AM ED T Respiratory Rate - - Oxygen Saturation 97% 11/08/2023 9:53 AM EDT Inhaled Oxygen Concentration - - Weight 118 kg (260 lb 2.3 oz) 11/08/2023 9:53 AM EDT Height 180.3 cm (5' 11 ) 11/08/2023 9:53 AM EDT Body Mass Index 36.28 11/08/2023 9:53 AM EDT Plan of Treatment Upcoming Encounters Date Type Department Care Team (Late st Contact Info) Description 05/10/2024 10:20 AM EST Office Visit [facility] Medicine [facility] [address] [place] [address] Saba Boateng, CITLALY [address] [place] [address] Health Maintenance Due Date Last Done Comments [facility]-HIV Screening 1960 [facility]-Hepatitis C Screening 1960 [facility]-/Child/Adol SDOH Screenings 1960 [facility]- SDOH Screenings 1979 [facility]-Adult SDOH Screenings 1979 CT Colonography 2006 FIT-DNA 2006 FIT 2006 FOBT 2006 Sigmoidoscopy 2006 [facility]-Zoster Vaccines (1 of 2) 2011 [id number] Vaccine (3 - season) 2024 04/17/2021, 08/06/2020 [facility]-Influenza Vaccine (#1) 01/29/202402/22, 02/19/2021, 02/22/2019, Additional history exists [facility]-Depression Screening 11/07/2024 11/08/2023, 03/31 [facility]-DTaP,Tdap,and Td Vaccines (2 - Td or Tdap) 08/14/2029 08/15/2019, 08/07/1996 Colonoscopy 03/18/2032 03/18/2022, 02/28, 04/30/2019, Additional history exists [facility]-Colorectal Cancer Screening 03/18/2032 [facility]-RSV Vaccine: 60+ Years or (1 - 1-dose 75+ series) 2036 [facility]-Hepatitis A Vaccines Aged Out 08/07/2018, 01/28 No longer eligible based on patient's age to complete this topic [facility]-Obesity Intervention Completed 024, 05/05/2023, 10/26/2022, Additional history exists [facility]-HIB Vaccines Aged Out No longer e ligible based on patient's age to complete this topic [facility]-HPV Vaccines Aged Out No longer e ligible based on patient's age to complete this topic [facility]-IPV Vaccines Aged Out No longer e ligible based on patient's age to complete this topic [facility]-Pneumococcal Vaccine: Pediatrics (0 to 5 Years) and At-Risk Patients (6 to 64 Years) Aged Out No longer eligible based on patient's age to complete this topic [facility]-Rotavirus Vaccines Aged Out No lo nger eligible based on patient's age to complete this topic Procedures Procedure Name Priority Date/Time Associated Diagnosis Comments COMPLETE METABOLIC PROFILE (CMP) Routine 03/02/2024 2:52 PM EDT C-REACTIVE PROTEIN, PLASMA Routine 03/02/2024 2:52 PM EDT CBC W/DIFF Routine 03/02/2024 2:52 PM EDT COLONOSCOPY 03/18/2022 11:06 AM EDT from Last 3 Months or Most Recently Relevant to Health Maintenance Results * COMPLETE METABOLIC PROFILE (CMP) (03/02/2024 2:52 PM EDT) us Saba B Stuffelbeam PA LAB BLOOD ORDERABLES Final Result * CBC W/DIFF (03/02/2024 2:52 PM EDT) us Saba B Stuffelbeam PA LAB BLOOD ORDERABLES Final Result * C-Reactive Protein, Plasma (03/02/2024 2:52 PM EDT) Blood Venous blood specimen / Unknown us Saba B Stuffelbeam PA LAB BLOOD ORDERABLES Final Result * Colonoscopy (03/18/2022 11:06 AM EDT) Anatomical Region Laterality Modality Endoscopy 03/18/2022 10:4 3 AM EDT Impressions 03/18/2022 11:06 AM EDT Please see media tab for the result. Information added by interface. Narrative Procedure Note Don Abernathy MD - 03/18/2022 IMPRESSION: Please see media tab for the result. Information added by interface. us External Provider GI PROCEDURE ORDERABLES Final Result from Last 3 Months or Most Recently Relevant to Health Maintenance Insurance [employer] Care Teams Control Tower Operator Relationship Specialty Start Date End Date Zac Alexander MD [address] [address] PCP - General 05/05/23
--- OUTSIDE RECORDS SUMMARY | 2024-04-30 08:23 | XMS_ITS | Encounter Summary ---
Author Organization [facility] Address [address] [id number] Care Team Providers Care Director Trust Name Role Phone Zac Alexander MD Primary Care Provider + [phone] Encounter Details Date Type Department Care Team (Late st Contact Info) Description 04/23/2024 Orders Only [facility] Medicine Specialties [address] [place] [address] Saba Boateng PA [address] [place] [address] Crohn's disease of both small and large intestine without complication (CMS/HCC) (Primary Dx) Social History Tobacco Use Types Packs/Day Years [...] Description 05/10/2024 10:20 AM EST Office Visit [facility] Medicine Specialties [address] [place] [address] Saba Boateng, PA [address] [place] [address] documented as of this encounter Visit Diagnoses Diagnosis Crohn's disease of both small and large intestine without complication (CMS/HCC)- Primary documented in this encounter Additional Health Concerns Assessment Noted Time A fall risk assessment has been complete d for the patient 11/08/2023 9:58 AM EDT A Body Mass Index follow-up plan has been documented for the patient 11/08/2023 10:45 AM EDT documented as of this encounter Care Teams Director Trust Relationship Specialty Start Date End Date Zac Alexander MD [facility] [address] [address] PCP - General 05/05/23 documented as of this encounter
--- OUTSIDE RECORDS SUMMARY | 2024-04-30 08:24 | XMS_ITS | Encounter Summary ---
Author Organization [facility] Address [address] [id number] Care Team Providers Care Regulatory Agency Director Name Role Phone Kilo Sen MD Primary Care Provider [phone]- [phone] Encounter Details Date Type Department Care Team (Latest Contact Info) Description 03/16/2022 Travel Social History Tobacco Use Types Packs/Day Years Used Date Smoking Tobacco: Never Smokeless Tobacco: Current Chew Alcohol Use Standard Drinks/Week Comments Yes 0 (1 standard drink = 0.6 oz pure alcohol) Alcoholic Drinks/day: Minimum alcohol consumption Sex and Gender Information Value Date Recorded Sex Assigned at Not on file Legal Sex Male 6:09 PM EDT Gender Identity Not on file Sexual Orientation Not on file COVID-19 Exposure Response Date Recorded In the last 10 days, have yo u been in contact with someone who was confirmed or suspected to have Coronavirus/COVID-19? No / Unsure 03/16/2022 10:38 AM EDT documented as of this encounter Plan of Treatment Upcoming Encounters Date Type Department Care Team (Late st Contact Info) Description 05/10/2024 10:20 AM EST Office Visit [facility] Medicine Specialties [address] [place] [address] Saba Boateng PA [address] [place] [address] documented as of this encounter Visit Diagnoses Not on filedocumented in this encounter Additional Health Concerns Assessment Noted Time A fall risk assessment has been complete d for the patient 03/24/2021 9:39 AM EDT documented as of this encounter Care Teams Regulatory Agency Director Relationship Specialty Start Date End Date Kilo Sen MD [address] [place] [address] PCP - General 10/10/20 05/04/23 documented as of this encounter
--- OUTSIDE RECORDS SUMMARY | 2024-04-30 08:24 | XMS_ITS | Encounter Summary ---
Author Organization [facility] Address [address] [place] [address] Care Team Providers Care Delivery Department Supervisor Name Role Phone Kilo Sen MD Primary Care Provider [phone]- [phone] Encounter Details Date Type Department Care Team (Late st Contact Info) Description 03/10/2022 Telephone [facility] [address] [place] [address] Nelda Higgins RN ENDOSCOPY ADMINISTRATION Social History Tobacco Use Types Packs/Day Years [...] Description 05/10/2024 10:20 AM EST Office Visit [facility] [address] [place] [address] Saba Boateng PA [address] [place] [address] documented as of this encounter Visit Diagnoses Not on filedocumented in this encounter Additional Health Concerns Assessment Noted Time A fall risk assessment has been complete d for the patient 03/24/2021 9:39 AM EDT documented as of this encounter Care Teams Delivery Department Supervisor Relationship Specialty Start Date End Date Kilo Sen MD [address] [place] [address] PCP - General 10/10/20 05/04/23 documented as of this encounter
--- OUTSIDE RECORDS SUMMARY | 2024-04-30 08:24 | XMS_ITS | Encounter Summary ---
Author Organization [facility] Address [address] [place] [address] Care Team Providers Care Campus Wellness Coordinator Name Role Phone Kilo Sen MD Primary Care Provider +1- [phone] Encounter Details Date Type Department Care Team (Late Contact Info) Description 04/28/2022 Orders Only [facility] Medicine Specialties [address], [address] [place] [address] Saba Boateng PA [address] [place] [address] Crohn's disease of both small and large intestine without complication (CMS/HCC) (Primary Dx) Social History Tobacco Use Types Packs/Day Years Used Date Smoking Tobacco: Never Smokeless Tobacco: Current Chew Alcohol Use Standard Drinks/Week Comments Yes 0 (1 standard drink = 0.6 oz pure alcohol) Alcoholic Drinks/day: Minimum alcohol consumption PHQ-2 Answer Date Recorded Patient Health Questionnaire-2 Score 0 04/27/2022 Sex and Gender Information Value Date Recorded Sex Assigned at Not on file Legal Sex Male 6:09 PM EDT Gender Identity Not on file Sexual Orientation Not on file COVID-19 Exposure Response Date Recorded In the last 10 days, have yo u been in contact with someone who was confirmed or suspected to have Coronavirus/COVID-19? No / Unsure 04/27/2022 1:26 PM EST documented as of this encounter Plan of Treatment Upcoming Encounters Date Type Department Care Team (Late Contact Info) Description 05/10/2024 10:20 AM EST Office Visit [facility] [address] [place] [address] Saba Boateng PA [address] [place] [address] documented as of this encounter Visit Diagnoses Diagnosis Crohn's disease of both small and large intestine without complication (CMS/HCC)- Primary documented in this encounter Additional Health Concerns Assessment Noted Time A fall risk assessment has been complete d for the patient 04/27/2022 1:34 PM EST documented as of this encounter Care Teams Campus Wellness Coordinator Relationship Specialty Start Date End Date Kilo Sen MD [address] [place] [address] PCP - General 10/10/20 05/04/23 documented as of this encounter
--- OUTSIDE RECORDS SUMMARY | 2024-04-30 08:24 | XMS_ITS | Encounter Summary ---
Author Organization [facility] Address [address] [place] [address] Care Team Providers Care [place] Opener Name Role Phone Kilo Sen MD Primary Care Provider [phone]- [phone] Zac Alexander MD Primary Care Provider [phone] Encounter Details Date Type Department Care Team (Late st Contact Info) Description 04/11/2023 Telephone [facility] [address] [place] [address] Mario Boone, PharmD Social History Tobacco Use Types Packs/Day Years Used Date Smoking Tobacco: Never Smokeless Tobacco: Current Chew Alcohol Use Standard Drinks/Week Comments Yes 0 (1 standard drink = 0.6 oz pure alcohol) Alcoholic Drinks/day: Minimum alcohol consumption PHQ-2 Answer Date Recorded Patient Health Questionnaire-2 Score 0 05/05/2023 PHQ-2A Answer Date Recorded Patient Health Questionnaire-2 Score 0 05/05/2023 Sex and Gender Information Value Date Recorded Sex Assigned at Not on file Legal Sex Male 6:09 PM EDT Gender Identity Not on file Sexual Orientation Not on file documented as of this encounter Miscellaneous Notes * Telephone Encounter - Adilene Mcgrath RN - 04/15/2023 2:43 PM EST Noted. * Telephone Encounter - Hoa Coyle - 04/11/2023 11:53 AM EST IBD list updated, and task sent to Saba. Also, pt needs TB gold at Apr appt, note on appt line documented in this encounter Plan of Treatment Upcoming Encounters Date Type Department Care Team (Late st Contact Info) Description 05/10/2024 10:20 AM EST Office Visit [facility] Medicine Specialties [address] [place] [address] Saba Boateng, CITLALY [address] [place] [address] documented as of this encounter Visit Diagnoses Not on filedocumented in this encounter Additional Health Concerns Assessment Noted Time A fall risk assessment has been complete d for the patient 10/26/2022 1:05 PM EDT A Body Mass Index follow-up plan has been documented for the patient 10/26/2022 3:58 PM EDT documented as of this encounter Care Teams Sumatra Opener Relationship Specialty Start Date End Date Kilo Sen MD [address] [place] [facility] [address] [place] [address] PCP - General 10/10/20 05/04/23 Zac Alexander MD [address] [place] [address] PCP - General 05/05/23 documented as of this encounter
--- OUTSIDE RECORDS SUMMARY | 2024-04-30 08:24 | XMS_ITS | Encounter Summary ---
Author Organization Healthcare Address [address] [place] [address] Care Team Providers Care Die Trimmer Name Role Phone Zac Alexander MD Primary Care Provider + [phone] Encounter Details Date Type Department Care Team (Late st Contact Info) Description 11/08/2023 Telephone [facility] [address] [place] [id number] Mazin Rivera, PharmD Social History Tobacco Use Types Packs/Day [...] encounter Miscellaneous Notes * Telephone Encounter - Hoa Coyle - 04/08/2024 2:55 PM EST Tb gold due with Dec GI appt, HH can't do tb gold as a general rule Note on APPT line * Telephone Encounter - Hoa Coyle - 01/22/2024 8:20 PM EDT 8/9 labs uploaded. F/u gi appt * Telephone Encounter - Hoa Coyle - 11/23/2023 11:35 AM EDT No labs in [facility], pt had Jessica labs with OV, confirmed with Reshma at [facility] that pt has 8/9 appt scheduled with them * Telephone Encounter - Hoa Coyle - 11/20/2023 2:23 PM EDT Faxed for labs at [facility] No labs in [facility] * Telephone Encounter - Hoa Coyle - 11/20/2023 2:23 PM EDT F/u other enc * Telephone Encounter - Hoa Coyle - 11/17/2023 11:13 PM EDT Faxed for infusion labs if done * Telephone Encounter - Hoa Coyle - 11/13/2023 11:33 PM EDT Per Epic infusion appt changed to 11/13 * Telephone Encounter - Lesli Clarke CPhT - 11/08/2023 4:43 PM EDT PA request has been denied. Sending to clinic for review via Manager Inspection upload. Medication: Entyvio 108MG/0.68ML pen-injectors PA Additional Info: Your plan only covers this drug when: A) You have tried other drugs your plan covers (adalimumab-adaz, Hadlima, Hyrimoz, Rinvoq, Stelara SQ, Xeljanz/XR, Zeposia), and they did not work well for you,or B) Your doctor gives us a medical reason you cannot take those other drugs. * Telephone Encounter - Lesli Clarke CPhT - 11/08/2023 3:21 PM EDT Prior authorization initiated by [facility] [employer]. Update will be provided when a determination has been received. Medication: Entyvio 108MG/0.68ML pen-injectors [facility] Submission Method: CMM Case Number/CMM Short: [id number] documented in this encounter Plan of Treatment Upcoming Encounters Date Type Department Care Team (Late st Contact Info) Description 05/10/2024 10:20 AM EST Office Visit [place] [facility] [address] [place] [address] Saba Boateng PA [address] [place] [phone] documented as of this encounter Visit Diagnoses Not on filedocumented in this encounter Additional Health Concerns Assessment Noted Time A fall risk assessment has been complete d for the patient 11/08/2023 9:58 AM EDT A Body Mass Index follow-up plan has been documented for the patient 11/08/2023 10:45 AM EDT documented as of this encounter Care Teams Die Trimmer Relationship Specialty Start Date End Date Zac Alexander MD [address] [facility] [address] [place] [address] PCP - General 05/05/23 documented as of this encounter
--- OUTSIDE RECORDS SUMMARY | 2024-04-30 08:24 | XMS_ITS | Encounter Summary ---
Author Organization [facility] Address [address] [id number] Care Team Providers Care Hostel Manager Name Role Phone Zac Alexander MD Primary Care Provider + [phone] Reason for Visit * Reason Comments Crohn's Disease Follow-up Encounter Details Date Type Department Care Team (Late st Contact Info) Description 11/08/2023 10:00 AM EDT Office Visit [place] [facility] [address] [place] [address] Saba Boateng PA [address] [place] [address] Crohn's disease of both small and large intestine without complication (CMS/HCC) (Primary Dx); Obesity (BMI 30-39.9); Long-term current use of vedolizumab Social History Tobacco Use Types Packs/Day Years [...] on file documented as of this encounter Last Filed Vital Signs Vital Sign Reading [...] Mass Index 36.28 11/08/2023 9:53 AM EDT documented in this encounter Miscellaneous Notes * Progress Notes - Saba Boateng PA - 11/08/2023 10:00 AM EDT Subjective Patient ID: Elieser Bush is a 63 y.o. male. Chief Complaint Patient presents with Crohn's Disease Follow-up HPI Mr. Bush is a very pleasant 63 year old male with PMH of DM and HTN, who is seen in clinic today for follow-up of ileocolonic Crohn's disease diagnosed in 2009. Colonoscopy from 03/18/2022 reviewed and noted no evidence of active disease or dysplasia. Mr. Bush is currently treated with 300 mg vedolizumab every 8 weeks. Mr. Bush continues to report feeling well today. However, he is nearly one month overdue for infusion as his home health company told him they were understaffed and therefore has not sent anyone to give him his medication. He states his last three infusions have been overdue. He denies any abdominal pain. He is having 1 BM/day without evidence of melena or hematochezia. He denies any N/V, decreased appetite, unintentional weight loss, fevers, or fatigue. Mr. uBsh is a non-smoker, but he does chew tobacco. Previous failed therapies include azathioprine. The following portions of the chart were reviewed this encounter and updated as appropriate: Tobacco Allergies Meds Problems Med Hx Surg Hx Fam Hx Review of Systems Constitutional: Negative for appetite change, chills, fatigue, fever and unexpected weight change. HENT: Negative for mouth sores and sore throat. Respiratory: Negative for shortness of breath. Cardiovascular: Negative for chest pain. Gastrointestinal: Negative for abdominal pain, blood in stool, constipation, diarrhea, nausea and vomiting. Musculoskeletal: Negative for arthralgias. Skin: Negative for rash. All other systems reviewed and are negative. Objective Physical Exam Vitals reviewed. Constitutional: Appearance: Normal appearance. He is obese. HENT: Head: Normocephalic. Right Ear: External ear normal. Left Ear: External ear normal. Nose: Nose normal. Eyes: General: No scleral icterus. Conjunctiva/sclera: Conjunctivae normal. Cardiovascular: Rate and Rhythm: Normal rate and regular rhythm. Heart sounds: Normal heart sounds. Pulmonary: Effort: Pulmonary effort is normal. Breath sounds: Normal breath sounds. Abdominal: General: Abdomen is flat. Bowel sounds are normal. Palpations: Abdomen is soft. There is no mass. Tenderness: There is no abdominal tenderness. Musculoskeletal: General: Normal range of motion. Cervical back: Normal range of motion and neck supple. No tenderness. Lymphadenopathy: Cervical: No cervical adenopathy. Skin: General: Skin is warm and dry. Neurological: Mental Status: He is alert and oriented to person, place, and time. Psychiatric: Mood and Affect: Mood normal. Behavior: Behavior normal. Thought Content: Thought content normal. Judgment: Judgment normal. Assessment/Plan Diagnoses and all orders for this visit: 1.) Crohn's disease of both small and large intestine without complication (CMS/HCC): - No active disease noted on colonoscopy 03/18/2022. Surveillance colonoscopy recommended in 3 years (due 02/2025). - Continue 300 mg vedolizumab every 8 weeks. Given significant delay in infusions due to home health understaffing will work on either changing infusion site back to hospital or converting to subcutaneous injections. - Plan for routine labs today. Normal vitamin D and low- normal vitamin B12 levels 04/2023. Oral vitamin B12 supplementation was prescribed at that time. - Comprehensive Metabolic Panel, Plasma; Future - C-Reactive Protein, Plasma; Future - CBC and Differential; Future - Follow-up in 6 months. 2.) Long-term current use of vedolizumab: - Annual TB screening is up-to-date (due 04/2024). - Mr. Bush has received annual influenza vaccine. 3.) Obesity (BMI 30-39.9): - Recommend weight loss for overall health. Answers submitted by the patient for this visit: Inflammatory Bowel Disease (Submitted on 11/01/2023) When you are not experiencing symptoms of your inflammatory bowel disease, how many bowel movementsdo you typically have each day?: 0-1 Over the last 3 days, what is the maximum number of bowel movements that you had in a single day?: 2 Over the last 3 days, have you had any bowel movements where you passed blood without stool?: No Since your last visit, have you received any vaccinations?: No Since the last visit, have you had an infection?: No In the past three months, have you used tobacco in any form?: Yes Inflammatory Bowel Disease (Submitted on 11/01/2023) What form(s) of tobacco have you used?: smokeless tobacco During the last year, how many days have you missed work or school because of your inflammatory bowel disease?: 0 During the last year, how many days have you been hospitalized because of your inflammatory bowel disease?: 0 During the last year, how many days have you visited a hospital emergency department because of your inflammatory bowel disease?: 0 During the last month, have you taken narcotic pain medications (such as Percocet, oxycodone, Oxycontin, morphine, Vicodin, Dilaudid, MS Contin) for your inflammatory bowel disease?: No During the last month, have you awoken at night to move your bowels?: No During the last month, have you had leakage of your stool while sleeping?: No During the last month, have you had incontinence of stool while you were awake?: No During the last month have you unintentionally lost weight?: No During the last 3 days, have you had a fever?: No During the last 3 days, have you had eye irritation?: No During the last 3 days, have you had numbness or tingling in your hands or feet?: No During the last 3 days, have you had bruising or bleeding?: No During the last 3 days, have you felt depressed or blue?: No documented in this encounter Plan of Treatment Upcoming Encounters Date Type Department Care Team (Late st Contact Info) Description 05/10/2024 10:20 AM EST Office Visit [place] [facility] [address] [place] [address] Saba Boateng PA [address] [place] [address] documented as of this encounter Results * (ABNORMAL) CBC and Differential (11/08/2023 11:27 AM EDT) WBC Count 8.28 3.70 - 10.30 10*3/uL LAB HEMATOLOGY METHOD 11/08/2023 2:10 PM EDT [facility] RBC Count 4.87 4.60 - 6.10 10*6/uL LAB HEMATOLOGY METHOD 11/08/2023 2:10 PM EDT [facility] HGB 13.8 13.7 - 17.5 g/dL LAB HEMATOLOGY METHOD 11/08/2023 2:10 PM EDT [facility] HCT 43.3 40.0 - 51.0 % LAB HEMATOLOGY METHOD 11/08/2023 2:10 PM EDT [facility] Platelet Count 242 155 - 369 10*3/uL LAB HEMATOLOGY METHOD 11/08/2023 2:10 PM EDT [facility] MCV 89 79 - 98 fL LAB HEMATOLOGY METHOD 11/08/2023 2:10 PM EDT [facility] MCH 28.3 26.0 - 32.0 pg LAB HEMATOLOGY METHOD 11/08/2023 2:10 PM EDT [facility] MCHC 31.9 30.7 - 35.5 g/dL LAB HEMATOLOGY METHOD 11/08/2023 2:10 PM EDT [facility] RDW 13.3 11.5 - 14.5 % LAB HEMATOLOGY METHOD 11/08/2023 2:10 PM EDT [facility] MPV 10.3 8.8 - 12.5 fL LAB HEMATOLOGY METHOD 11/08/2023 2:10 PM EDT [facility] nRBC 0.0 <=0.0 per 100 WBCs LAB HEMATOLOGY METHOD 11/08/2023 2:10 PM EDT [facility] Differential Type Automated LAB HEMATOLOGY METHOD 11/08/2023 2:10 PM EDT [facility] Neutrophils % 51.0 % LAB HEMATOLOGY METHOD 11/08/2023 2:10 PM EDT [facility] Lymphocytes % 24.0 % LAB HEMATOLOGY METHOD 11/08/2023 2:10 PM EDT [facility] Monocytes % 8.0 % LAB HEMATOLOGY METHOD 11/08/2023 2:10 PM EDT [facility] Eosinophils % 16.0 % LAB HEMATOLOGY METHOD 11/08/2023 2:10 PM EDT [facility] Basophils % 1.0 % LAB HEMATOLOGY METHOD 11/08/2023 2:10 PM EDT [facility] Immature Granulocytes % 0.0 % LAB HEMATOLOGY METHOD 11/08/2023 2:10 PM EDT [facility] Neutrophils Absolute 4.24 1.60 - 6.10 10*3/uL LAB HEMATOLOGY METHOD 11/08/2023 2:10 PM EDT [facility] Lymphocytes Absolute 1.96 1.20 - 3.90 10*3/uL LAB HEMATOLOGY METHOD 11/08/2023 2:10 PM EDT [facility] Monocytes Absolute 0.65 0.30 - 0.90 10*3/uL LAB HEMATOLOGY METHOD 11/08/2023 2:10 PM EDT [facility] Eosinophils Absolute 1.31(H) 0.00 - 0.50 10*3/uL LAB HEMATOLOGY METHOD 11/08/2023 2:10 PM EDT [facility] Basophils Absolute 0.10 0.00 - 0.10 10*3/uL LAB HEMATOLOGY METHOD 11/08/2023 2:10 PM EDT [facility] Immature Granulocytes Absolute 0.02 0.00 - 0.06 10*3/uL LAB HEMATOLOGY METHOD 11/08/2023 2:10 PM EDT [facility] Blood Venous blood specimen / Unknown Venipuncture / Unknown 11/08/2023 11:27 AM EDT 11/08/2023 11:27 AM EDT Narrative [facility] - 11/08/2023 2:10 PM EDT Therapeutic decision making should be based on absolute values, rather than percentages. Saba BOUCHER LAB BLOOD ORDERABLES Final Result [facility] [address] [place] [address] * C-Reactive Protein, Plasma (11/08/2023 11:27 AM EDT) Pathologist [facility] CRP, Plasma <3.0 <=8.0 mg/L 11/08/2023 1:27 PM EDT [facility] Blood Venous blood specimen / Unknown Venipuncture / Unknown 11/08/2023 11:27 AM EDT 11/08/2023 11:27 AM EDT Narrative [facility] - 11/08/2023 1:27 PM EDT This CRP test is appropriate for assessment of infection, systemic inflammation and/or tissue injury. To assess cardiovascular disease risk order high sensitivity CRP (CRPH). us Saba BOUCHER LAB BLOOD ORDERABLES Final Result [facility] [address] [place] [id number] * (ABNORMAL) Comprehensive Metabolic Panel, Plasma (11/08/2023 11:27 AM EDT) Pathologist [facility] Glucose, Plasma 106(H) 74 - 99 mg/dL 11/08/2023 1:27 PM EDT [facility] BUN, Plasma 7(L) 8 - 23 mg/dL 11/08/2023 1:27 PM EDT [facility] Creatinine, Plasma 0.76(L) 0.80 - 1.30 mg/dL 11/08/2023 1:27 PM EDT [facility] BUN/Creatinine Ratio 9 11/08/2023 1:27 PM EDT [facility] Sodium, Plasma 142 136 - 145 mmol/L 11/08/2023 1:27 PM EDT [facility] Potassium, Plasma 4.2 3.7 - 4.8 mmol/L 11/08/2023 1:27 PM EDT [facility] Chloride, Plasma 108(H) 97 - 107 mmol/L 11/08/2023 1:27 PM EDT [facility] CO2, Plasma 25 22 - 29 mmol/L 11/08/2023 1:27 PM EDT [facility] Anion Gap 9 6 - 16 mmol/L 11/08/2023 1:27 PM EDT [facility] Total Calcium, Plasma 8.9 8.9 - 10.2 mg/dL 11/08/2023 1:27 PM EDT [facility] Total Protein 6.7 6.3 - 7.9 g/dL 11/08/2023 1:27 PM [facility] Albumin, Plasma 4.0 3.5 - 5.2 g/dL 11/08/2023 1:27 PM EDT [facility] AST, Plasma 20 10 - 50 U/L 11/08/2023 1:27 PM EDT [facility] ALT, Plasma 16 10 - 50 U/L 11/08/2023 1:27 PM EDT [facility] Alkaline Phosphatase, Plasma 57 40 - 115 U/L 11/08/2023 1:27 PM EDT [facility] Total Bilirubin, Plasma 0.3 0.2 - 1.1 mg/dL 11/08/2023 1:27 PM EDT [facility] eGFRcr 101.6 mL/min/1.7 3m*2 11/08/2023 1:27 PM EDT [facility] Comment:Reported eGFRcr in m L/min/1.73m2 is based the CKD-EPI 2020 equation that does not use a race coefficient. Blood Venous blood specimen / Unknown Venipuncture / Unknown 11/08/2023 11:27 AM EDT 11/08/2023 11:27 AM EDT Saba BOUCHER LAB BLOOD ORDERABLES Final Result [facility] [address] [place] [address] documented in this encounter Visit Diagnoses Diagnosis Crohn's disease of both small and large intestine without complication (CMS/HCC)- Primary Obesity (BMI 30-39.9) Long-term current use of vedolizumab documented in this encounter Additional Health Concerns Assessment Noted Time A fall risk assessment has been complete d for the patient 11/08/2023 9:58 AM EDT A Body Mass Index follow-up plan has been documented for the patient 11/08/2023 10:45 AM EDT documented as of this encounter Care Teams Hostel Manager Relationship Specialty Start Date End Date Zac Alexander MD [facility] [place] [address] PCP - General 05/05/23 documented as of this encounter
--- OUTSIDE RECORDS SUMMARY | 2024-04-30 08:24 | XMS_ITS | Encounter Summary ---
Author Organization Healthcare Address [address] [id number] Care Team Providers Care Home Help Aide Name Role Phone Kilo Sen MD Primary Care Provider [phone] Encounter Details Date Type Department Care Team (Latest Contact Info) Description 03/11/2022 Travel Social History Tobacco Use Types Packs/Day [...] suspected to have Coronavirus/COVID-19? No / Unsure 03/11/2022 11:11 PM EDT documented as of this encounter Plan of Treatment Upcoming Encounters Date Type Department Care Team (Late st Contact Info) Description 05/10/2024 10:20 AM EST Office Visit [place] [facility] [address] [place] [address] Saba Boateng PA [address] [place] [address] documented as of this encounter Visit Diagnoses Not on filedocumented in this encounter Additional Health Concerns Assessment Noted Time A fall risk assessment has been complete d for the patient 03/24/2021 9:39 AM EDT documented as of this encounter Care Teams Home Help Aide Relationship Specialty Start Date End Date Kilo Sen MD [address] [place] [address] PCP - General 10/10/20 05/04/23 documented as of this encounter
--- OUTSIDE RECORDS SUMMARY | 2024-04-30 08:24 | XMS_ITS | Encounter Summary ---
Author Organization [facility] Address [address] [id number] Care Team Providers Care Cash Applications Associate Name Role Phone Zac Alexander MD Primary Care Provider + [phone] Encounter Details Date Type Department Care Team (Late st Contact Info) Description 07/05/2023 Orders Only [facility] Medicine Specialties [address] [place] [address] Saba Boateng PA [address] [facility] [address] [place] [address] Social History Tobacco Use Types [...] Description 05/10/2024 10:20 AM EST Office Visit [facility] Medicine Specialties [address] [place] [address] Saba Boateng PA [address] [facility] [address] [place] [address] documented as of this encounter Procedures Procedure Name Priority Date/Time Associated Diagnosis Comments COMPLETE METABOLIC PROFILE (CMP) Routine 07/05/2023 12:11 AM EST CBC W/DIFF Routine 07/05/2023 12:11 AM EST C-REACTIVE PROTEIN, PLASMA Routine 07/05/2023 12:11 AM EST documented in this encounter Results * C-Reactive Protein, Plasma (07/05/2023 12:11 AM EST) Blood Venous blood specimen / Unknown us Saba B Sthortenciaelbeam PA LAB BLOOD ORDERABLES Final Result * COMPLETE METABOLIC PROFILE (CMP) (07/05/2023 12:11 AM EST) us Saba B Sthortenciaelbeam PA LAB BLOOD ORDERABLES Final Result * CBC W/DIFF (07/05/2023 12:11 AM EST) us Saba B Stuffelbeam PA LAB BLOOD ORDERABLES Final Result documented in this encounter Visit Diagnoses Not on filedocumented in this encounter Additional Health Concerns Assessment Noted Time A fall risk assessment has been complete d for the patient 05/05/2023 9:38 AM EST A Body Mass Index follow-up plan has been documented for the patient 05/05/2023 10:32 AM EST documented as of this encounter Care Teams Cash Applications Associate Relationship Specialty Start Date End Date Zac Alexander MD [address] [address] PCP - General 05/05/23 documented as of this encounter
--- OUTSIDE RECORDS SUMMARY | 2024-04-30 08:24 | XMS_ITS | Encounter Summary ---
Author Organization [facility] Address [address] [place] [address] Care Team Providers Care Freight Forwarder Name Role Phone Kilo Sen MD Primary Care Provider +- [phone] Zac Alexander MD Primary Care Provider [phone] Encounter Details Date Type Department Care Team (Late st Contact Info) Description 03/18/2022 Outside Procedure [facility] [address] [place] [phone] Provider, External Social History Tobacco Use Types Packs/Day Years [...] Description 05/10/2024 10:20 AM EST Office Visit [place] [facility] [address] [place] [address] Saba Boateng PA [address] [place] [address] documented as of this encounter Procedures Procedure Name Priority Date/Time Associated Diagnosis Comments COLONOSCOPY 03/18/2022 11:06 AM EDT documented in this encounter Results * Colonoscopy (03/18/2022 11:06 AM EDT) Anatomical Region Laterality Modality Endoscopy 03/18/2022 10:4 3 AM EDT Impressions 03/18/2022 11:06 AM EDT Please see media tab for the result. Information added by interface. Narrative Procedure Note Don Abernathy MD - 03/18/2022 IMPRESSION: Please see media tab for the result. Information added by interface. us External Provider GI PROCEDURE ORDERABLES Final Result documented in this encounter Visit Diagnoses Not on filedocumented in this encounter Additional Health Concerns Assessment Noted Time A fall risk assessment has been complete d for the patient 03/24/2021 9:39 AM EDT documented as of this encounter Care Teams Freight Forwarder Relationship Specialty Start Date End Date Kilo Sen MD [address] [place] [address] PCP - General 10/10/20 05/04/23 Zac Alexander MD [address] [place] [id number] PCP - General 05/05/23 documented as of this encounter
--- OUTSIDE RECORDS SUMMARY | 2024-04-30 08:24 | XMS_ITS | Encounter Summary ---
Author Organization [facility] Address [address] [id number] Care Team Providers Care Alteration Hand Name Role Phone Zac Alexander MD Primary Care Provider + [phone] Encounter Details Date Type Department Care Team (Late st Contact Info) Description 01/12/2024 Orders Only [facility] Medicine Specialties [address] [place] [address] Saba Boateng PA [address] [facility] [address] [place] [address] Social History Tobacco Use Types [...] Description 05/10/2024 10:20 AM EST Office Visit [facility] Medicine Specialties [address], [address] [place] [address] Saba Boateng PA [address] [facility] [address] [place] [address] documented as of this encounter Procedures Procedure Name Priority Date/Time Associated Diagnosis Comments CBC WITH AUTO DIFFERENTIAL Routine 01/12/2024 9:26 AM EDT C-REACTIVE PROTEIN, PLASMA Routine 01/12/2024 9:26 AM EDT documented in this encounter Results * CBC and Differential (01/12/2024 9:26 AM EDT) Blood Venous blood specimen / Unknown us Saba B Stuffelramilaam PA LAB BLOOD ORDERABLES Final Result * C-Reactive Protein, Plasma (01/12/2024 9:26 AM EDT) Blood Venous blood specimen / Unknown us Saba B Stleonoraam PA LAB BLOOD ORDERABLES Final Result documented in this encounter Visit Diagnoses Not on filedocumented in this encounter Additional Health Concerns Assessment Noted Time A fall risk assessment has been complete d for the patient 11/08/2023 9:58 AM EDT A Body Mass Index follow-up plan has been documented for the patient 11/08/2023 10:45 AM EDT documented as of this encounter Care Teams Alteration Hand Relationship Specialty Start Date End Date Zac Alexander MD [address] [address] PCP - General 05/05/23 documented as of this encounter
--- OUTSIDE RECORDS SUMMARY | 2024-04-30 08:24 | XMS_ITS | Encounter Summary ---
Author Organization Healthcare Address [address] [id number] Care Team Providers Care Staff Certified Nurse Midwife Name Role Phone Zac Alexander MD Primary Care Provider + [phone] Encounter Details Date Type Department Care Team (Latest Contact Info) Description 11/08/2023 Travel Social History Tobacco Use Types Packs/Day [...] Description 05/10/2024 10:20 AM EST Office Visit [facility] [address] [place] [address] Saba Boateng PA [address] [place] [address] documented as of this encounter Visit Diagnoses Not on filedocumented in this encounter Additional Health Concerns Assessment Noted Time A fall risk assessment has been complete d for the patient 11/08/2023 9:58 AM EDT A Body Mass Index follow-up plan has been documented for the patient 11/08/2023 10:45 AM EDT documented as of this encounter Care Teams Staff Certified Nurse Midwife Relationship Specialty Start Date End Date Zac Alexander MD [address] [place] [address] PCP - General 05/05/23 documented as of this encounter
--- OUTSIDE RECORDS SUMMARY | 2024-04-30 08:24 | XMS_ITS | Encounter Summary ---
Author Organization [facility] Address [address] [place] [address] Care Team Providers Care Credit Risk Modeler Name Role Phone Kilo Sen MD Primary Care Provider +1- [phone] Encounter Details Date Type Department Care Team (Late st Contact Info) Description 06/21/2022 Telephone [facility] [address] [place] [address] Mario Boone, PharmD Social History [...] * Telephone Encounter - Hoa Coyle - 06/23/2022 12:07 PM EST Called and spoke to pt, he will go to [facility] within the week and get his TB gold drawn, order faxed to outpt lab fax and sent to pt in a msg. documented in this encounter Plan of Treatment Upcoming Encounters Date Type Department Care Team (Late st Contact Info) Description 05/10/2024 10:20 AM EST Office Visit [facility] Medicine Specialties [address], [address] [place] [address] Saba Boateng, CITLALY [address] [place] [address] documented as of this encounter Visit Diagnoses Not on filedocumented in this encounter Additional Health Concerns Assessment Noted Time A fall risk assessment has been complete d for the patient 04/27/2022 1:34 PM EST documented as of this encounter Care Teams Credit Risk Modeler Relationship Specialty Start Date End Date Kilo Sen MD [address] [place] [address] PCP - General 10/10/20 05/04/23 documented as of this encounter
--- OUTSIDE RECORDS SUMMARY | 2024-04-30 08:24 | XMS_ITS | Encounter Summary ---
Author Organization [facility] Address [address] [id number] Care Team Providers Care .Net Developer Name Role Phone Kilo Sen MD Primary Care Provider +1- [phone] Reason for Visit * Reason Comments Crohn's disease of both small and large intestine without c Encounter Details Date Type Department Care Team (Late st Contact Info) Description 10/26/2022 1:20 PM EDT Office Visit [facility] [address] [place] [address] Saba Boateng PA [address] [place] [address] Crohn's disease of both small and large intestine without complication (CMS/HCC) (Primary Dx); Long-term current use of vedolizumab; Obesity (BMI 30-39.9) Social History Tobacco Use Types Packs/Day Years Used Date Smoking Tobacco: Never Smokeless Tobacco: Current Chew Tobacco Cessation:Ready to Q uit: Not Asked; Counseling Given: Not Answered Alcohol Use Standard Drinks/Week Comments Yes 0 (1 standard drink = 0.6 oz pure alcohol) Alcoholic Drinks/day: Minimum alcohol consumption PHQ-2 Answer Date Recorded Patient Health Questionnaire-2 Score 0 10/26/2022 PHQ-2A Answer Date Recorded Patient Health Questionnaire-2 Score 0 10/26/2022 Sex and Gender Information Value Date Recorded Sex Assigned at Not on file Legal Sex Male 6:09 PM EDT Gender Identity Not on file Sexual Orientation Not on file documented as of this encounter Last Filed Vital Signs Vital Sign Reading Time Taken Comments Blood Pressure 135/90 10/26/2022 1:25 PM EDT Pulse 83 10/26/2022 1:25 PM EDT Temperature 36.6 ??C (97.8 ??F) 10/26/2022 1:01 PM ED T Respiratory Rate - - Oxygen Saturation 96% 10/26/2022 1:25 PM EDT Inhaled Oxygen Concentration - - Weight 124 kg (272 lb 4.3 oz) 10/26/2022 1:01 PM EDT Height 180.3 cm (5' 11 ) 10/26/2022 1:01 PM EDT Body Mass Index 37.97 10/26/2022 1:01 PM EDT documented in this encounter Miscellaneous Notes * Progress Notes - Saba Boateng PA - 10/26/2022 1:20 PM EDT Subjective Patient ID: Elieser Bush is a 62 y.o. male. Chief Complaint Patient presents with Crohn's disease of both small and large intestine without c HPI Mr. Bush is a very pleasant 62 year old male with PMH of DM and HTN, who is seen in clinic today for follow-up of ileocolonic Crohn's disease diagnosed in 2009. Colonoscopy from 03/18/2022 reviewed and noted no evidence of active disease or dysplasia. Mr. Bush is currently treated with 300 mg vedolizumab every 8 weeks. Mr. Bush continues to report feeling well today. He denies any abdominal pain. He is having 1 BM/day without evidence of melena or hematochezia. Elieser states his appetite has been since having COVID last year as he still has not entirely regained his sense of taste. His weight is trending down. He denies any N/V, fevers, or fatigue. Mr. Bush is a non-smoker, but he does chew tobacco. Previous failed therapies include azathioprine. The following portions of the chart were reviewed this encounter and updated as appropriate: Tobacco Allergies Meds Problems Med Hx Surg Hx Fam Hx Review of Systems Constitutional: Positive for appetite change. Negative for chills, fatigue, fever and unexpected weight change. Gastrointestinal: Negative for abdominal pain, blood in stool, constipation, diarrhea, nausea and vomiting. Neurological: Negative for facial asymmetry. All other systems reviewed and are negative. [...] Continue 300 mg vedolizumab every 8 weeks. - Routine monitoring labs for Crohn's disease treated with vedolizumab are being completed and reviewed every 8 weeks to evaluate for potential leukopenia, anemia, thrombocytopenia, transaminitis, hypoalbuminemia, inflammation, and disease activity. Most recent labs from 10/09/2022 reviewed and noted mild, normocytic anemia; unremarkable WBC, platelets, LFTs, albumin, and CRP. - Follow-up in 6 months. 2.) Long-term current use of vedolizumab: - Annual TB screening is up-to-date (due 05/2023). - Mr. Bush has received COVID- 19 vaccination series and annual influenza vaccine. Encouraged him to receive bivalent COVID booster. 3.) Obesity (BMI 30-39.9): - Recommend weight loss for overall health. documented in this encounter Plan of Treatment Upcoming Encounters Date Type Department Care Team (Late st Contact Info) Description 05/10/2024 10:20 AM EST Office Visit [facility] [address] [place] [address] Saba Boateng PA [address] [place] [address] documented as of this encounter Visit Diagnoses Diagnosis Crohn's disease of both small and large intestine without complication (CMS/HCC)- Primary Long-term current use of vedolizumab Obesity (BMI 30-39.9) documented in this encounter Additional Health Concerns Assessment Noted Time A fall risk assessment has been complete d for the patient 10/26/2022 1:05 PM EDT A Body Mass Index follow-up plan has been documented for the patient 10/26/2022 3:58 PM EDT documented as of this encounter Care Teams .Net Developer Relationship Specialty Start Date End Date Kilo Sen MD [address] [place] [address] PCP - General 10/10/20 05/04/23 documented as of this encounter
--- OUTSIDE RECORDS SUMMARY | 2024-04-30 08:24 | XMS_ITS | Encounter Summary ---
Author Organization Healthcare Address [address] [id number] Care Team Providers Care Ladle Liner Name Role Phone Kilo Sen MD Primary Care Provider +1- [phone] Encounter Details Date Type Department Care Team (Latest Contact Info) Description 03/19/2022 Travel Social History Tobacco Use Types Packs/Day [...] Visit [facility] [address] [place] [address] Saba Boateng PA [address] [place] [address] documented as of this encounter Visit Diagnoses Not on filedocumented in this encounter Additional Health Concerns Assessment Noted Time A fall risk assessment has been complete d for the patient 03/24/2021 9:39 AM EDT documented as of this encounter Care Teams Ladle Liner Relationship Specialty Start Date End Date Kilo Sen MD [address] [place] [address] PCP - General 10/10/20 05/04/23 documented as of this encounter
--- OUTSIDE RECORDS SUMMARY | 2024-04-30 08:24 | XMS_ITS | Encounter Summary ---
Author Organization [facility] Address [address] [id number] Care Team Providers Care Construction Job Titles Name Role Phone Kilo Sen MD Primary Care Provider +1- [phone] Encounter Details Date Type Department Care Team (Late st Contact Info) Description 03/16/2021 Telephone [facility] Medicine Specialties [address] [place] [address] Chang Smith Social History Tobacco Use Types Packs/Day Years Used Date Smoking Tobacco: Never Alcohol Use Standard Drinks/Week Comments Yes 0 (1 standard drink = 0.6 oz pure alcohol) Alcoholic Drinks/day: Minimum alcohol consumption Sex and Gender Information Value Date Recorded Sex Assigned at Not on file Legal Sex Male 6:09 PM EDT Gender Identity Not on file Sexual Orientation Not on file documented as of this encounter Miscellaneous Notes * Telephone Encounter - Chang Smith - 03/16/2021 8:37 AM EDT Labs from 03-11-21 scanned to chart and ready for provider to review. documented in this encounter Plan of Treatment Upcoming Encounters Date Type Department Care Team (Late st Contact Info) Description 05/10/2024 10:20 AM EST Office Visit [facility] Medicine Specialties [address] [place] [address] Saba Boateng, CITLALY [address] [place] [address] documented as of this encounter Visit Diagnoses Not on filedocumented in this encounter Care Teams Construction Job Titles Relationship Specialty Start Date End Date Kilo Sen MD [address] [place] [address] PCP - General 10/10/20 05/04/23 documented as of this encounter
--- OUTSIDE RECORDS SUMMARY | 2024-04-30 08:24 | XMS_ITS | Encounter Summary ---
Author Organization Healthcare Address [address] [id number] Care Team Providers Care Sales Stock Associate Name Role Phone Kilo Sen MD Primary Care Provider +1- [phone] Encounter Details Date Type Department Care Team (Late st Contact Info) Description 02/14/2023 Telephone [facility] [address] [place] [address] Mario Boone, PharmD Social History [...] Description 05/10/2024 10:20 AM EST Office Visit [place] [facility]ties [address] [place] [address] Saba Boateng PA [address] [place] [address] documented as of this encounter Visit Diagnoses Not on filedocumented in this encounter Additional Health Concerns Assessment Noted Time A fall risk assessment has been complete d for the patient 10/26/2022 1:05 PM EDT A Body Mass Index follow-up plan has been documented for the patient 10/26/2022 3:58 PM EDT documented as of this encounter Care Teams Sales Stock Associate Relationship Specialty Start Date End Date Kilo Sen MD [address] [place] [address] PCP - General 10/10/20 05/04/23 documented as of this encounter
--- OUTSIDE RECORDS SUMMARY | 2024-04-30 08:24 | XMS_ITS | Encounter Summary ---
Author Organization [facility] Address [address] [id number] Care Team Providers Care Formwork Carpenter Name Role Phone Kilo Sen MD Primary Care Provider +1- [phone] Reason for Visit * Reason Comments Crohn's Disease Follow up Encounter Details Date Type Department Care Team (Late st Contact Info) Description 04/27/2022 2:00 PM EST Office Visit [place] [facility] [address] [place] [address] Saba Boateng PA [address] [place] [address] Crohn's disease of both small [...] PM EST documented as of this encounter Last Filed Vital Signs Vital Sign Reading Time Taken Comments Blood Pressure 149/95 04/27/2022 1:33 PM EST Pulse 84 04/27/2022 1:33 PM EST Temperature 36.6 ??C (97.9 ??F) 04/27/2022 1:33 PM ES T Respiratory Rate - - Oxygen Saturation - - Inhaled Oxygen Concentration - - Weight 127 kg (279 lb 15.8 oz) 04/27/2022 1:33 P M EST Height 180.3 cm (5' 11 ) 04/27/2022 1:33 PM EST Body Mass Index 39.05 04/27/2022 1:33 PM EST documented in this encounter Miscellaneous Notes * Progress Notes - Saba Boateng PA - 04/27/2022 2:00 PM EST Subjective Patient ID: Elieser Bush is a 61 y.o. male. Chief Complaint Patient presents with Crohn's Disease Follow up HPI Mr. Bush is a very pleasant 61 year old male with PMH of DM and HTN, who is seen in clinic today for follow-up of ileocolonic Crohn's disease diagnosed in 2009. Colonoscopy from 03/18/2022 reviewed and noted no evidence of active disease or dysplasia. Mr. Bush Is currently treated with 300 mg vedolizumab every 8 weeks. Mr. Bush reports feeling great today. He denies any abdominal pain. He is having 1 BM/day without evidence of melena or hematochezia. He denies any N/V, unintentional weight loss, decreased appetite, fevers, or fatigue. Mr. Bush is a [...] in stool, constipation, diarrhea, nausea and vomiting. All other systems reviewed and are negative. [...] and disease activity. Most recent labs from 04/21/2022 reviewed and noted mild, normocytic anemia; unremarkable WBC, platelets, LFTs, albumin, and CRP. - Follow-up in 6 months. 2.) Long-term current use of vedolizumab: - Annual TB screening is due, so will update with next set of infusion labs. - Mr. Bush has received COVID- 19 vaccination series and annual influenza vaccine. Encouraged him to receive bivalent COVID booster. 3.) Obesity (BMI 30-39.9): - Recommend weight loss for overall health. documented in this encounter Plan of Treatment Upcoming Encounters Date Type Department Care Team (Late st Contact Info) Description 05/10/2024 10:20 AM EST Office Visit [place] [facility] [address] [place] [address] Saba Boateng, CITLALY [address] [place] [address] documented as of this encounter Visit Diagnoses Diagnosis Crohn's disease of both small and large intestine without complication (CMS/HCC)- Primary Long-term current use of vedolizumab Obesity (BMI 30-39.9) documented in this encounter Additional Health Concerns Assessment Noted Time A fall risk assessment has been complete d for the patient 04/27/2022 1:34 PM EST documented as of this encounter Care Teams Formwork Carpenter Relationship Specialty Start Date End Date Kilo Sen MD [address] [place] [address] PCP - General 10/10/20 05/04/23 documented as of this encounter
--- OUTSIDE RECORDS SUMMARY | 2024-04-30 08:24 | XMS_ITS | Encounter Summary ---
Author Organization Healthcare Address [address] [id number] Care Team Providers Care Dynamite Packing Machine Operator Name Role Phone Kilo Sen MD Primary Care Provider +1- [phone] Encounter Details Date Type Department Care Team (Late st Contact Info) Description 02/24/2022 Telephone [facility] [address] [place] [address] Mario Boone, PharmD Social History [...] Description 05/10/2024 10:20 AM EST Office Visit [facility] [address] [place] [address] Saba Boateng PA [address] [place] [address] documented as of this encounter Visit Diagnoses Not on filedocumented in this encounter Additional Health Concerns Assessment Noted Time A fall risk assessment has been complete d for the patient 03/24/2021 9:39 AM EDT documented as of this encounter Care Teams Dynamite Packing Machine Operator Relationship Specialty Start Date End Date Kilo Sen MD [address] [place] [address] PCP - General 10/10/20 05/04/23 documented as of this encounter
--- OUTSIDE RECORDS SUMMARY | 2024-04-30 08:24 | XMS_ITS | Encounter Summary ---
Author Organization Healthcare Address [address] [id number] Care Team Providers Care Memory Care Director Name Role Phone Kilo Sen MD Primary Care Provider +1- [phone] Encounter Details Date Type Department Care Team (Late st Contact Info) Description 02/04/2022 Orders Only [facility] Medicine Specialties [address] [place] [address] Saba Boateng PA [address] [place] [address] Long-term current use of vedolizumab (Primary Dx) Social History Tobacco Use Types [...] as of this encounter Miscellaneous Notes * Progress Notes - Hoa Coyle - 02/04/2022 5:30 PM EDT Annual TB documented in this encounter Plan of Treatment Upcoming Encounters Date Type Department Care Team (Late st Contact Info) Description 05/10/2024 10:20 AM EST Office Visit [place] [facility] [address] [place] [address] Saba Boateng, CITLALY [address] [place] [address] documented as of this encounter Visit Diagnoses Diagnosis Long-term current use of vedolizumab- Primary documented in this encounter Additional Health Concerns Assessment Noted Time A fall risk assessment has been complete d for the patient 03/24/2021 9:39 AM EDT documented as of this encounter Care Teams Memory Care Director Relationship Specialty Start Date End Date Kilo Sen MD [address] [place] [address] PCP - General 10/10/20 05/04/23 documented as of this encounter
--- OUTSIDE RECORDS SUMMARY | 2024-04-30 08:24 | XMS_ITS | Encounter Summary ---
Author Organization Healthcare Address [address] [id number] Care Team Providers Care Jawbone Breaker Name Role Phone Kilo Sen MD Primary Care Provider +1- [phone] Reason for Visit * Reason Comments Crohn's Disease fu Encounter Details Date Type Department Care Team (Late st Contact Info) Description 03/24/2021 10:00 AM EDT Office Visit [place] [facility] [address] [place] [address] Saba Boateng PA [address] [place] [address] Crohn's disease of both small and large intestine without complication (CMS/HCC) (Primary Dx); Long-term current use of vedolizumab Social History [...] Exposure Response Date Recorded In the last month, have you been in contact with someone who was confirmed or suspected to have Coronavirus / COVID-19? No / Unsure 03/24/2021 9:28 AM EDT documented as of this encounter Last Filed Vital Signs Vital Sign Reading Time Taken Comments Blood Pressure 164/80 03/24/2021 9:41 AM EDT Pulse 95 03/24/2021 9:41 AM EDT Temperature 37.2 ??C (99 ??F) 03/24/2021 9:41 AM EDT Respiratory Rate - - Oxygen Saturation 96% 03/24/2021 9:41 AM EDT Inhaled Oxygen Concentration - - Weight 129 kg (283 lb 15.2 oz) 03/24/2021 9:41 A M EDT Height 179.1 cm (5' 10.5 ) 03/24/2021 9:41 AM ED T Body Mass Index 40.17 03/24/2021 9:41 AM EDT documented in this encounter Miscellaneous Notes * Progress Notes - Saba Boateng PA - 03/24/2021 10:00 AM EDT Subjective Patient ID: Elieser Bush is a 60 y.o. male. Chief Complaint Patient presents with ??? Crohn's Disease fu HPI Mr. Bush is a very pleasant 60 year old male with PMH of DM and HTN, who is seen in clinic today for follow-up of ileocolonic Crohn's disease diagnosed in 2009. Colonoscopy from 04/30/19 reviewed and noted mild active colitis in the cecum; moderate chronic active ileitis. Mr. Bush was treated with 150 mg/day of azathioprine at time of colonoscopy, but given active disease he transitioned to vedolizumab of which he is now receiving 300 mg every 8 weeks. ?? Mr. Bush reports feeling very well today. He denies any abdominal pain. He is having 1 BM/day without evidence of melena or hematochezia. He denies any N/V, unintentional weight loss, decreased appetite, fevers, or fatigue. Mr. Bush is a non-smoker, but he does chew tobacco. The following portions of the chart were [...] appearance. He is obese. HENT: Head: Normocephalic. Nose: Nose normal. Eyes: Conjunctiva/sclera: Conjunctivae normal. Pupils: Pupils are equal, round, and reactive to light. Cardiovascular: Rate and Rhythm: Normal rate and regular rhythm. Heart sounds: Normal heart sounds. Pulmonary: Effort: Pulmonary effort is normal. Breath sounds: Normal breath sounds. Abdominal: General: Abdomen is flat. Bowel sounds are normal. Palpations: Abdomen is soft. There is no mass. Tenderness: There is no abdominal tenderness. Musculoskeletal: General: Normal range of motion. Cervical back: Normal range of motion. No tenderness. Lymphadenopathy: Cervical: No cervical adenopathy. [...] small and large intestine without complication (CMS/HCC): ?? - Most recent colonoscopy on 04/30/19 reviewed and noted mild active colitis in the cecum; moderate chronic active ileitis. Therefore, his treatment was transitioned from azathioprine to 300 mg of vedolizumab of which he is now receiving every 8 weeks. ?? - Routine monitoring labs for Crohn's disease treated with vedolizumab are being completed and reviewed every 8 weeks to evaluate for potential leukopenia, anemia, thrombocytopenia, transaminitis, hypoalbuminemia, inflammation, and disease activity. Most recent labs from 03/11/2021 reviewed and essentially unremarkable. ?? - Surveillance colonoscopy recommended in 2 years (due 04/2021). - Colonoscopy; Future?? - Follow-up after colonoscopy. ? 2.) Long-term current use of vedolizumab: ?? - Annual TB screening is up-to-date (due 05/2021). ?? - Mr. Bush has received COVID- 19 vaccine and annual influenza vaccine. ? documented in this encounter Plan of Treatment Upcoming Encounters Date Type Department Care Team (Late st Contact Info) Description 05/10/2024 10:20 AM EST Office Visit [place] [facility] [address] [place] [address] Saba Boateng PA [address] [place] [address] documented as of this encounter Visit Diagnoses Diagnosis Crohn's disease of both small and large intestine without complication (CMS/HCC)- Primary Long-term current use of vedolizumab documented in this encounter Additional Health Concerns Assessment Noted Time A fall risk assessment has been complete d for the patient 03/24/2021 9:39 AM EDT documented as of this encounter Care Teams Jawbone Breaker Relationship Specialty Start Date End Date Kilo Sen MD [address] [place] [address] PCP - General 10/10/20 05/04/23 documented as of this encounter
--- OUTSIDE RECORDS SUMMARY | 2024-04-30 08:24 | XMS_ITS | Encounter Summary ---
Author Organization [facility] Address [address] [place] [address] Care Team Providers Care Director Security Management Name Role Phone Kilo Sen MD Primary Care Provider +1- [phone] Encounter Details Date Type Department Care Team (Late st Contact Info) Description 05/08/2021 Orders Only [facility] Medicine Specialties [address], [address] [place] [address] Saba Boateng PA [address] [place] [address] Crohn's disease of both small [...] Description 05/10/2024 10:20 AM EST Office Visit [place] [facility] [address], [address] [place] [address] Saba Boateng, PA [address] [place] [address] documented as of this encounter Visit Diagnoses Diagnosis Crohn's disease of both small and large intestine without complication (CMS/HCC)- Primary documented in this encounter Additional Health Concerns Assessment Noted Time A fall risk assessment has been complete d for the patient 03/24/2021 9:39 AM EDT documented as of this encounter Care Teams Director Security Management Relationship Specialty Start Date End Date Kilo Sen MD [address] [place] [address] PCP - General 10/10/20 05/04/23 documented as of this encounter
--- OUTSIDE RECORDS SUMMARY | 2024-04-30 08:24 | XMS_ITS | Encounter Summary ---
Author Organization Healthcare Address [address] [id number] Care Team Providers Care Transition Nurse Name Role Phone Zac Alexander MD Primary Care Provider + [phone] Encounter Details Date Type Department Care Team (Late st Contact Info) Description 11/18/2023 Telephone [facility] [address] [place] [address] Donald Pereira, [facility] [address] [place] [address] Social History Tobacco Use Types Packs/Day Years [...] Description 05/10/2024 10:20 AM EST Office Visit [place] [facility] [address], [address] [place] [address] Saba Boateng PA [address] [place] [address] documented as of this encounter Visit Diagnoses Not on filedocumented in this encounter Additional Health Concerns Assessment Noted Time A fall risk assessment has been complete d for the patient 11/08/2023 9:58 AM EDT A Body Mass Index follow-up plan has been documented for the patient 11/08/2023 10:45 AM EDT documented as of this encounter Care Teams Transition Nurse Relationship Specialty Start Date End Date Zac Alexander MD [address] [place] [address] PCP - General 05/05/23 documented as of this encounter
--- OUTSIDE RECORDS SUMMARY | 2024-04-30 08:24 | XMS_ITS | Encounter Summary ---
Author Organization [facility] Address [address] [place] [address] Care Team Providers Care Pizzamaker Name Role Phone Kilo Sen MD Primary Care Provider +1- [phone] Encounter Details Date Type Department Care Team (Late st Contact Info) Description 04/27/2023 Orders Only [facility] Medicine Specialties [address], [address] [place] [address] Saba Boateng PA [address] [place] [address] Crohn's disease of both small [...] Description 05/10/2024 10:20 AM EST Office Visit [facility] Medicine Specialties [address], [address] [place] [address] Saba Boateng PA [address] [place] [address] documented as of this encounter Visit Diagnoses [...] documented as of this encounter Care Teams Pizzamaker Relationship Specialty Start Date End Date Kilo Sen MD [address] [place] [address] PCP - General 10/10/20 05/04/23 documented as of this encounter
--- OUTSIDE RECORDS SUMMARY | 2024-04-30 08:24 | XMS_ITS | Encounter Summary ---
Author Organization Healthcare Address [address] [id number] Care Team Providers Care Digital Marketing Analyst Name Role Phone Kilo Sen MD Primary Care Provider +1- [phone] Encounter Details Date Type Department Care Team (Late st Contact Info) Description 08/19/2022 Telephone [facility] Infusion [address] [place] [address] Skylar Samuels Social History Tobacco Use Types Packs/Day Years [...] Description 05/10/2024 10:20 AM EST Office Visit [place] [facility] [address], [address] [place] [address] Saba Boateng, CITLALY [address] [place] [address] documented as of this encounter Visit Diagnoses Not on filedocumented in this encounter Additional Health Concerns Assessment Noted Time A fall risk assessment has been complete d for the patient 04/27/2022 1:34 PM EST documented as of this encounter Care Teams Digital Marketing Analyst Relationship Specialty Start Date End Date Klio Sen MD [address] [place] [address] PCP - General 10/10/20 05/04/23 documented as of this encounter
--- OUTSIDE RECORDS SUMMARY | 2024-04-30 08:24 | XMS_ITS | Encounter Summary ---
Author Organization Healthcare Address [address] [id number] Care Team Providers Care Cooker Cleaner Name Role Phone Zac Alexander MD Primary Care Provider + [phone] Encounter Details Date Type Department Care Team (Latest Contact Info) Description 05/05/2023 Travel Social History Tobacco Use Types Packs/Day [...] Description 05/10/2024 10:20 AM EST Office Visit [place] [facility] [address] [place] [address] Saba Boateng PA [address] [place] [address] documented as of this encounter Visit Diagnoses Not on filedocumented in this encounter Additional Health Concerns Assessment Noted Time A fall risk assessment has been complete d for the patient 05/05/2023 9:38 AM EST A Body Mass Index follow-up plan has been documented for the patient 05/05/2023 10:32 AM EST documented as of this encounter Care Teams Cooker Cleaner Relationship Specialty Start Date End Date Zac Alexander MD [address] [place] [address] PCP - General 05/05/23 documented as of this encounter
--- OUTSIDE RECORDS SUMMARY | 2024-04-30 08:24 | XMS_ITS | Encounter Summary ---
Author Organization [facility] Address [address] [id number] Care Team Providers Care Upper Marker Name Role Phone Zac Alexander MD Primary Care Provider + [phone] Encounter Details Date Type Department Care Team (Late st Contact Info) Description 04/08/2024 Orders Only [facility] Medicine Specialties [address] [place] [address] Saba Boateng PA [address] [facility] [address] [place] [address] Social History Tobacco Use Types [...] Description 05/10/2024 10:20 AM EST Office Visit [facility] Medicine Specialties [address], [address] [place] [address] Saba Boateng PA [address] [facility] [address] [place] [address] documented as of this encounter Procedures Procedure Name Priority Date/Time Associated Diagnosis Comments COMPLETE METABOLIC PROFILE (CMP) Routine 03/02/2024 2:52 PM EDT CBC W/DIFF Routine 03/02/2024 2:52 PM EDT C-REACTIVE PROTEIN, PLASMA Routine 03/02/2024 2:52 PM EDT documented in this encounter Results * COMPLETE METABOLIC PROFILE (CMP) (03/02/2024 [...] documented as of this encounter Care Teams Upper Marker Relationship Specialty Start Date End Date Zac Alexander MD [address] [facility] [address], [place] [id number] PCP - General 05/05/23 documented as of this encounter
--- OUTSIDE RECORDS SUMMARY | 2024-04-30 08:24 | XMS_ITS | Encounter Summary ---
Author Organization [facility] Address [address] [id number] Care Team Providers Care Visitor Services Information Assistant Name Role Phone Zac Alexander MD Primary Care Provider + [phone] Reason for Visit * Reason Comments Follow-up Crohn's Disease Encounter Details Date Type Department Care Team (Late st Contact Info) Description 05/05/2023 10:00 AM EST Office Visit [place] [facility] [address] [place] [address] Saba Boateng PA [address] [place] [address] Crohn's disease of both small [...] Sign Reading Time Taken Comments Blood Pressure 150/95 05/05/2023 9:38 AM EST Pulse 84 05/05/2023 9:38 AM EST Temperature 36.4 ??C (97.5 ??F) 05/05/2023 9:38 AM ES T Respiratory Rate - - Oxygen Saturation 97% 05/05/2023 9:38 AM EST Inhaled Oxygen Concentration - - Weight 121 kg (266 lb 8.6 oz) 05/05/2023 9:38 AM EST Height 180.3 cm (5' 11 ) 05/05/2023 9:38 AM EST Body Mass Index 37.17 05/05/2023 9:38 AM EST documented in this encounter Miscellaneous Notes * Progress Notes - Saba Boateng PA - 05/05/2023 10:00 AM EST Subjective Patient ID: Elieser Bush is a 62 y.o. male. Chief Complaint Patient presents with Follow-up Crohn's Disease HPI Mr. Bush is a very pleasant [...] his appetite has been since having COVID > one year ago as he still has not entirely regained [...] and disease activity. Most recent labs from 04/09/2023 reviewed and noted mild, normocytic anemia; unremarkable WBC, platelets, LFTs, and CRP; mildly decreased albumin. Hehas elevated eosinophils. He does report some allergies and also reports illness around Thanksgiving. Will continue to monitor labs with each infusion. - Will check vitamin D and vitamin B12 levels today. - Vitamin D 25 Hydroxy; Future - Vitamin B12; Future - Follow-up in 6 months. 2.) Long-term current use of vedolizumab: - Annual TB screening is due 05/2023. Will update with today's labs. - Quantiferon TB Gold; Future - Mr. Bush has received annual influenza vaccine. 3.) Obesity (BMI 30-39.9): - Recommend weight loss for overall health. Answers submitted by the patient for this visit: Inflammatory Bowel Disease (Submitted on 05/04/2023) When you are not experiencing symptoms of your inflammatory bowel disease, how many bowel movementsdo you typically have each day?: 0-1 Over the last 3 days, what is the maximum number of bowel movements that you had in a single day?: 1 Over the last 3 days, have you had any bowel movements where you passed blood without stool?: No Since your last visit, have you received any vaccinations?: Yes Since the last visit, have you had an infection?: No In the past three months, have you used tobacco in any form?: Yes Inflammatory Bowel Disease (Submitted on 05/04/2023) What form(s) of tobacco have you used?: [...] Visit [place] [facility] [address] [place] [address] Saba Boateng PA [address] [place] [address] documented as of this encounter Results * Vitamin B12 (05/05/2023 10:14 AM EST) Vitamin B12, Serum 293 210 - 1,033 pg/mL 05/05/2023 12:43 PM EST [facility] Blood Venous blood specimen / Unknown Venipuncture / Unknown 05/05/2023 10:14 AM EST 05/05/2023 10:16 AM EST us Saba BOUCHER [facility] BLOOD ORDERABLES Final Result [facility] [address] [place] [address] * Vitamin D 25 Hydroxy (05/05/2023 10:14 AM EST) Vitamin D 25 Hydroxy 27.0 20.0 - 80.0 ng/mL 05/05/2023 1:29 PM EST [facility] Blood Venous blood specimen / Unknown Venipuncture / Unknown 05/05/2023 10:14 AM EST 05/05/2023 10:16 AM EST Narrative [facility] - 05/05/2023 1:29 PM EST Testing performed on [employer] Machine Operator, standardized against NIST SRM 2972. When testing samples from patients whose predominant form of vitamin D is vitamin D2, such as patients receiving vitamin D2 supplementation, results that are subtherapeutic should be confirmed with another method, such as LC-MS/MS, before being used for patient management. Vitamin D, 25-Hydroxy reference range, age 18 years and up: Deficiency: ? <12 ng/mL Insufficiency: ? 12 to 19 ng/mL Sufficiency: ?20 to 80 ng/mL Possible toxicity: ?? >100 ng/mL Saba BOUCHER [facility] BLOOD ORDERABLES Final Result Performing Organization Address [facility] de Phone Number [facility] [address] [place] [address] * Quantiferon TB Gold (05/05/2023 10:14 AM EST) [facility] Quantiferon TB Gold Plus Result Negative Negative 05/06/2023 3:30 PM EST [facility] TB Nill Value 0.0165 IU/mL 05/06/2023 3:30 PM EST [facility] TB Antigen 1 0.0139 IU/mL 05/06/2023 3:30 PM EST [facility] TB Antigen 2 0.0145 IU/mL 05/06/2023 3:30 PM EST [facility] TB Mitogen 9.9835 IU/mL 05/06/2023 3:30 PM EST [facility] Blood Venous blood specimen / Unknown Venipuncture / Unknown 05/05/2023 10:14 AM EST 05/05/2023 10:16 AM EST S[facility] BOUCHER [facility] BLOOD ORDERABLES Final Result Performing Organization Address [facility] de Phone Number [facility] [address] [place] [address] documented in this encounter Visit Diagnoses Diagnosis [...] documented as of this encounter Care Teams Visitor Services Information Assistant Relationship Specialty Start Date End Date Zac Alexander MD [address] [facility] [address] [place] [address] PCP - General 05/05/23 documented as of this encounter
--- OUTSIDE RECORDS SUMMARY | 2024-04-30 08:24 | XMS_ITS | Encounter Summary ---
Author Organization Healthcare Address [address] [place] [address] Care Team Providers Care Casket Coverer Name Role Phone Kilo Sen MD Primary Care Provider +1- [phone] Encounter Details Date Type Department Care Team (Latest Contact Info) Description 04/27/2022 Travel Social History Tobacco Use Types Packs/Day [...] Visit [place] [facility] [address] [place] [address] Saba Boateng PA [address] [place] [address] documented as of this encounter Visit Diagnoses Not on filedocumented in this encounter Additional Health Concerns Assessment Noted Time A fall risk assessment has been complete d for the patient 04/27/2022 1:34 PM EST documented as of this encounter Care Teams Casket Coverer Relationship Specialty Start Date End Date Kilo Sen MD [address] [place] [address] PCP - General 10/10/20 05/04/23 documented as of this encounter
--- OUTSIDE RECORDS SUMMARY | 2024-04-30 08:24 | XMS_ITS | Encounter Summary ---
Author Organization [facility] Address [address] [id number] Care Team Providers Care Airline Manager Name Role Phone Zac Alexander MD Primary Care Provider + [phone] Encounter Details Date Type Department Care Team (Late st Contact Info) Description 05/05/2023 Orders Only [facility] Medicine Specialties [address], [address] [place] [address] Saba Boateng PA [address] [place] [address] Crohn's disease of both small [...] Description 05/10/2024 10:20 AM EST Office Visit [facility] Medicine Specialties [address], [address] [place] [address] Saba Boatneg, PA [address] [place] [address] documented as of this encounter Visit Diagnoses [...] documented as of this encounter Care Teams Airline Manager Relationship Specialty Start Date End Date Zac Alexander MD [address] [place], [place] [id number] PCP - General 05/05/23 documented as of this encounter
--- OUTSIDE RECORDS SUMMARY | 2024-04-30 08:24 | XMS_ITS | Encounter Summary ---
Author Organization [facility] Address [address] [place] [address] Care Team Providers Care Police Clerk Name Role Phone Kilo Sen MD Primary Care Provider +- [phone] Zac Alexander MD Primary Care Provider [phone] Encounter Details Date Type Department Care Team (Late st Contact Info) Description 04/27/2023 Telephone [facility] Infusion [address] [place] [address] Renetta Lewis, [facility] [address] [place] [address] Social History Tobacco Use Types Packs/Day Years [...] Description 05/10/2024 10:20 AM EST Office Visit [place] [facility] [address] [place] [address] Saba Boateng, CITLALY [address] [place] [address] documented as of this encounter Visit Diagnoses Not on filedocumented in this encounter Additional Health Concerns Assessment Noted Time A fall risk assessment has been complete d for the patient 10/26/2022 1:05 PM EDT A Body Mass Index follow-up plan has been documented for the patient 10/26/2022 3:58 PM EDT documented as of this encounter Care Teams Police Clerk Relationship Specialty Start Date End Date Kilo Sen MD [address] [facility] [address] [place], [place] [id number] PCP - General 10/10/20 05/04/23 Zac Alexander MD [address] [facility] [address] [place] [id number] PCP - General 05/05/23 documented as of this encounter
--- OUTSIDE RECORDS SUMMARY | 2024-04-30 08:24 | XMS_ITS | Encounter Summary ---
Author Organization [facility] Address [address] [place] [address] Care Team Providers Care Chrome Plater Helper Name Role Phone Kilo Sen MD Primary Care Provider +1- [phone] Encounter Details Date Type Department Care Team (Latest Contact Info) Description 03/24/2021 Travel Social History Tobacco Use Types Packs/Day [...] Description 05/10/2024 10:20 AM EST Office Visit [place] [facility] [address] [place] [address] Saba Boateng PA [address] [place] [address] documented as of this encounter Visit Diagnoses Not on filedocumented in this encounter Additional Health Concerns Assessment Noted Time A fall risk assessment has been complete d for the patient 03/24/2021 9:39 AM EDT documented as of this encounter Care Teams Chrome Plater Helper Relationship Specialty Start Date End Date Kilo Sen MD [address] [place] [address] PCP - General 10/10/20 05/04/23 documented as of this encounter
--- OUTSIDE RECORDS SUMMARY | 2024-04-30 08:24 | XMS_ITS | Encounter Summary ---
Author Organization [facility] Address [address] [place] [address] Care Team Providers Care Patient Service Technician Pst Name Role Phone Zac Alexander MD Primary Care Provider + [phone] Encounter Details Date Type Department Care Team (Late st Contact Info) Description 11/08/2023 Orders Only [facility] Medicine Specialties [address] [place] [address] Mazin Rivera, PharmD Social History Tobacco Use [...] Description 05/10/2024 10:20 AM EST Office Visit [facility] Medicine Specialties [address] [place] [address] Saba Boateng PA [address] [place] [address] documented as of this encounter Visit Diagnoses Not on filedocumented in this encounter Additional Health Concerns Assessment Noted Time A fall risk assessment has been complete d for the patient 11/08/2023 9:58 AM EDT A Body Mass Index follow-up plan has been documented for the patient 11/08/2023 10:45 AM EDT documented as of this encounter Care Teams Patient Service Technician Pst Relationship Specialty Start Date End Date Zac Alexander MD [address] [place] [address] PCP - General 05/05/23 documented as of this encounter
--- OUTSIDE RECORDS SUMMARY | 2024-04-30 08:24 | XMS_ITS | Encounter Summary ---
Author Organization Healthcare Address [address] [id number] Care Team Providers Care Interline Clerk Name Role Phone Zac Alexander MD Primary Care Provider + [phone] Encounter Details Date Type Department Care Team (Latest Contact Info) Description 11/01/2023 Travel Social History Tobacco Use Types Packs/Day [...] Description 05/10/2024 10:20 AM EST Office [facility] [address], [address] [place] [address] Saba Boateng PA [address] [place] [address] documented as of this encounter Visit Diagnoses Not on filedocumented in this encounter Additional Health Concerns Assessment Noted Time A fall risk assessment has been complete d for the patient 05/05/2023 9:38 AM EST A Body Mass Index follow-up plan has been documented for the patient 05/05/2023 10:32 AM EST documented as of this encounter Care Teams Interline Clerk Relationship Specialty Start Date End Date Zac Alexander MD [address] [place] [address] PCP - General 05/05/23 documented as of this encounter
--- OUTSIDE RECORDS SUMMARY | 2024-04-30 08:24 | XMS_ITS | Encounter Summary ---
Author Organization [facility] Address [address] [place] [address] Care Team Providers Care Manager Provider Relations Name Role Phone Kilo Sen MD Primary Care Provider +1- [phone] Encounter Details Date Type Department Care Team (Latest Contact Info) Description 10/26/2022 Travel Social History Tobacco Use Types Packs/Day [...] Description 05/10/2024 10:20 AM EST Office Visit [place] [facility] [address], [address] [place] [address] Saba Boateng PA [address] [place] [address] documented as of this encounter Visit Diagnoses Not on filedocumented in this encounter Additional Health Concerns Assessment Noted Time A fall risk assessment has been complete d for the patient 10/26/2022 1:05 PM EDT A Body Mass Index follow-up plan has been documented for the patient 10/26/2022 3:58 PM EDT documented as of this encounter Care Teams Manager Provider Relations Relationship Specialty Start Date End Date Kilo Sen MD [address] [place] [address] PCP - General 10/10/20 05/04/23 documented as of this encounter
--- OUTSIDE RECORDS SUMMARY | 2024-04-30 08:24 | XMS_ITS | Encounter Summary ---
Author Organization Healthcare Address [address] [id number] Care Team Providers Care Special Education Secretary Name Role Phone Kilo Sen MD Primary Care Provider +- [phone] Zac Alexander MD Primary Care Provider [phone] Encounter Details Date Type Department Care Team (Late Contact Info) Description 03/19/2022 Lab Requisition [facility] [address] [place] [address] Don Abernathy MD [address] [facility] [address] [place] [address] Crohn's disease, unspecified, without complications (CMS/HCC) Social History Tobacco Use Types Packs/Day Years [...] Description 05/10/2024 10:20 AM EST Office Visit [place] [facility] [address], [address] [place] [address] Saba Boateng, PA [address] [place] [address] documented as of this encounter Procedures Procedure Name Priority Date/Time Associated Diagnosis Comments SURGICAL PATHOLOGY EXAM Routine 03/18/2022 Crohn's disease, unspecified, without complications (CMS/HCC) documented in this encounter Results * Surgical Pathology Exam (03/18/2022) Case Report Surgical Pathology ?Case: [id number] ? Authorizing Provider: ??Don Abernathy MD ? Collected: ? 03/18/2022 ? Ordering Location: ? [facility] ?Received: ?03/19/2022 1139 ? Pathologist: ? Joan Howe MD ? Specimen: ?Colon, Random Colon biopsy ? 03/22/2022 11:36 AM EDT [facility] Final Diagnosis LARGE INTESTINE, RANDOM COLON, BIOPSY: - NO EVIDENCE OF ACTIVE DISEASE OR DYSPLASIA (CLINICAL HISTORY OF CROHN'S DISEASE). 03/22/2022 11:36 AM EDT [facility] Clinical Information K50.90 - Crohn's disease, unspecified, without complications [ICD-10-CM] 03/22/2022 11:36 AM EDT [facility] Gross Description A. RANDOM COLON BIOPSY Received in formalin labeled random colon biopsy , and consists of five grimm/brown soft tissue fragments that measure 0.1-0.3 cm in greatest dimension. Entirely submitted in cassette A1. Desiree Solorio 03/22/2022 11:36 AM EDT [facility] Note: A resident was involved in the service. I attest I examined the relevant preparations for the specimens and confirmed the diagnosis or interpretation. 03/22/2022 11:36 AM EDT [facility] Tissue Colon structure / Unknown 03/18/2022 03/19/2022 11:39 AM EDT us Don Abernathy MD LAB PATHOLOGY ORDERABLES F inal Result Performing Organization Address City/State/[facility] Co de Phone Number [facility] [address] [place] [address] documented in this encounter Visit Diagnoses Diagnosis Crohn's disease, unspecified, without complications (CMS/HCC) documented in this encounter Additional Health Concerns Assessment Noted Time A fall risk assessment has been complete d for the patient 03/24/2021 9:39 AM EDT documented as of this encounter Care Teams Special Education Secretary Relationship Specialty Start Date End Date Kilo Sen MD [address] [place] [address] PCP - General 10/10/20 05/04/23 Zac Alexander MD [address] [place] [address] PCP - General 05/05/23 documented as of this encounter
--- OUTSIDE RECORDS SUMMARY | 2024-04-30 08:24 | XMS_ITS | Encounter Summary ---
Author Organization [facility] Address [address] [place] [address] Care Team Providers Care Animal Surgeon Name Role Phone Kilo Sen MD Primary Care Provider +1- [phone] Encounter Details Date Type Department Care Team (Latest Contact Info) Description 05/04/2023 Travel Social History Tobacco Use Types Packs/Day [...] Description 05/10/2024 10:20 AM EST Office Visit [place] [facility] [address], [address] [place] [address] Saba Boateng PA [address] [place] [address] documented as of this encounter Visit Diagnoses Not on filedocumented in this encounter Additional Health Concerns Assessment Noted Time A fall risk assessment has been complete d for the patient 10/26/2022 1:05 PM EDT A Body Mass Index follow-up plan has been documented for the patient 10/26/2022 3:58 PM EDT documented as of this encounter Care Teams Animal Surgeon Relationship Specialty Start Date End Date Kilo Sen MD [address] [place] [address] PCP - General 10/10/20 05/04/23 documented as of this encounter
--- OUTSIDE RECORDS SUMMARY | 2024-04-30 08:24 | XMS_ITS | Encounter Summary ---
Author Organization [facility] Address [address] [id number] Care Team Providers Care Wall Taper Helper Name Role Phone Zac Alexander MD Primary Care Provider + [phone] Encounter Details Date Type Department Care Team (Late st Contact Info) Description 01/06/2024 Orders Only [facility] Medicine Specialties [address], [address] [place] [address] Saba Boateng PA [address] [facility] [address] [place] [address] Social History Tobacco Use Types [...] Description 05/10/2024 10:20 AM EST Office Visit [facility]ties [address], [address] [place] [address] Saba Boateng PA [address] [facility] [address] [place] [address] documented as of this encounter Procedures Procedure Name Priority Date/Time Associated Diagnosis Comments COMPLETE METABOLIC PROFILE (CMP) Routine 01/06/2024 9:19 AM EDT documented in this encounter Results * COMPLETE METABOLIC PROFILE (CMP) (01/06/2024 9:19 AM EDT) [facility] BLOOD ORDERABLES Final Result documented in this encounter Visit Diagnoses Not on filedocumented in this encounter Additional Health Concerns Assessment Noted Time A fall risk assessment has been complete d for the patient 11/08/2023 9:58 AM EDT A Body Mass Index follow-up plan has been documented for the patient 11/08/2023 10:45 AM EDT documented as of this encounter Care Teams Wall Taper Helper Relationship Specialty Start Date End Date Zac Alexander MD [facility] [address] [address] PCP - General 05/05/23 documented as of this encounter
--- OUTSIDE RECORDS SUMMARY | 2024-04-30 08:24 | XMS_ITS | Encounter Summary ---
Author Organization [facility] Address [address] [place] [address] Care Team Providers Care Lab Coordinator Name Role Phone Kilo Sen MD Primary Care Provider [phone]- [phone] Encounter Details Date Type Department Care Team (Late Contact Info) Description 05/06/2022 Telephone [facility] Infusion [address] [place] [address] Mario Boone, PharmD Social History [...] PM EST documented as of this encounter Miscellaneous Notes * Telephone Encounter - Greta Odell RN - 05/06/2022 9:34 AM EST IBD lab monitoring list updated. documented in this encounter Plan of Treatment Upcoming Encounters Date Type Department Care Team (Late Contact Info) Description 05/10/2024 10:20 AM EST Office Visit [place] [facility] [address], [address] [place] [address] Saba Boateng PA [address] [place] [address] documented as of this encounter Visit Diagnoses Not on filedocumented in this encounter Additional Health Concerns Assessment Noted Time A fall risk assessment has been complete d for the patient 04/27/2022 1:34 PM EST documented as of this encounter Care Teams Lab Coordinator Relationship Specialty Start Date End Date Kilo Sen MD [address] [place] [address] PCP - General 10/10/20 05/04/23 documented as of this encounter
--- OUTSIDE RECORDS SUMMARY | 2024-04-30 08:24 | XMS_ITS | Encounter Summary ---
Author Organization Healthcare Address [address] [place] [address] Care Team Providers Care Sorting Livestock Worker Name Role Phone Kilo Sen MD Primary Care Provider [phone]- [phone] Encounter Details Date Type Department Care Team (Late st Contact Info) Description 04/28/2022 Telephone [facility] [address] [place] [address] Mazin Rivera, PharmD Social History Tobacco Use [...] encounter Miscellaneous Notes * Telephone Encounter - Mazin Rivera - 04/28/2022 7:53 AM EST ----- Message from CITLALY Samuel sent at 04/27/2022 8:23 PM EST ----- Regarding: TB screening TB screening is overdue and doesn't appear to have been drawn with infusion labs as ordered. Pleasearrange for quantiferon TB gold to be drawn with next infusion. There is active lab order in Epic. Thanks documented in this encounter Plan of Treatment Upcoming Encounters Date Type Department Care Team (Late st Contact Info) Description 05/10/2024 10:20 AM EST Office Visit [facility] [address], [address] [place] [address] Saba Boateng PA [address] [place] [address] documented as of this encounter Visit Diagnoses Not on filedocumented in this encounter Additional Health Concerns Assessment Noted Time A fall risk assessment has been complete d for the patient 04/27/2022 1:34 PM EST documented as of this encounter Care Teams Sorting Livestock Worker Relationship Specialty Start Date End Date Kilo Sen MD [address] [place] [address] PCP - General 10/10/20 05/04/23 documented as of this encounter
--- OUTSIDE RECORDS SUMMARY | 2024-04-30 08:25 | XMS_ITS | Encounter Summary ---
Author Organization Healthcare Address [address] [place] [address] Care Team Providers Care Molded Goods Spot Picker Name Role Phone Unavailable Primary Care Provider Unavailabl e Encounter Details Date Type Department Care Team (Late st Contact Info) Description 03/24/2017 Legacy AEHR Vitals Encounter [facility] OUTPATIENT CONVERSIONS [address] [place] [address] Provider, MD Sloan [address] [place] [address] Social History Tobacco Use Types Packs/Day Years Used Date Smoking Tobacco: Never Assessed Sex and Gender Information Value Date Recorded Sex Assigned at Not on file Legal Sex Male 6:09 PM EDT Gender Identity Not on file Sexual Orientation Not on file documented as of this encounter Last Filed Vital Signs Vital Sign Reading Time Taken Comments Blood Pressure - - Pulse - - Temperature - - Respiratory Rate - - Oxygen Saturation - - Inhaled Oxygen Concentration - - Weight 125 kg (275 lb 5 oz) 03/24/2017 10:30 AM EDT Height 180.3 cm (5' 11 ) 03/24/2017 10:30 AM EDT Body Mass Index 38.4 03/24/2017 10:30 AM EDT documented in this encounter Plan of Treatment Upcoming Encounters Date Type Department Care Team (Late st Contact Info) Description 05/10/2024 10:20 AM EST Office Visit [place] [facility] [address] [place] [address] Saba Boateng PA [address] [place] [address] documented as of this encounter Visit Diagnoses Not on filedocumented in this encounter
--- OUTSIDE RECORDS SUMMARY | 2024-04-30 08:25 | XMS_ITS | Encounter Summary ---
Author Organization Healthcare Address [address] [place] [address] Care Team Providers Care Hot Wire Glass Tube Cutter Name Role Phone Unavailable Primary Care Provider Unavailabl e Encounter Details Date Type Department Care Team (Late st Contact Info) Description 03/24/2016 Legacy AEHR Vitals Encounter [facility] OUTPATIENT CONVERSIONS [address] [place] [address] Provider, MD Sloan [address] [place] [address] Social History Tobacco Use Types Packs/Day [...] - Inhaled Oxygen Concentration - - Weight 111 kg (245 lb 1 oz) 03/24/2016 10:04 AM EDT Height - - Body Mass Index 34.18 01/28/2016 9:19 AM EDT documented in this encounter Plan of Treatment Upcoming Encounters Date Type Department Care Team (Late st Contact Info) Description 05/10/2024 10:20 AM EST Office Visit [facility] [facility] [address], [address] [place] [address] Saba Boateng PA [address] [place] [address] documented as of this encounter Visit Diagnoses Not on filedocumented in this encounter
--- OUTSIDE RECORDS SUMMARY | 2024-04-30 08:25 | XMS_ITS | Encounter Summary ---
Author Organization [facility] Address [address] [place] [address] Care Team Providers Care Insurance Broker Name Role Phone Unavailable Primary Care Provider Unavailabl e Encounter Details Date Type Department Care Team (Late st Contact Info) Description 07/25/2013 Legacy AEHR Vitals Encounter [facility] OUTPATIENT CONVERSIONS [address] [place] [address] Provider, MD Sloan [address] [place] [address] Social History Tobacco Use Types Packs/Day [...] - Inhaled Oxygen Concentration - - Weight 146 kg (321 lb 0.2 oz) 07/25/2013 11:48 A M EST Height 180.3 cm (5' 11 ) 07/25/2013 11:48 AM EST Body Mass Index 44.77 07/25/2013 11:48 AM EST documented in this encounter Plan of Treatment Upcoming Encounters Date Type Department Care Team (Late st Contact Info) Description 05/10/2024 10:20 AM EST Office Visit [place] [facility] [address] [place] [address] Saba Boateng PA [address] [place] [address] documented as of this encounter Visit Diagnoses Not on filedocumented in this encounter
--- OUTSIDE RECORDS SUMMARY | 2024-04-30 08:25 | XMS_ITS | Encounter Summary ---
Author Organization [facility] Address [address] [place] [address] Care Team Providers Care Marketing Operations Associate Name Role Phone Unavailable Primary Care Provider Unavailabl e Encounter Details Date Type Department Care Team (Late st Contact Info) Description 06/26/2015 Legacy AEHR Vitals Encounter [facility] OUTPATIENT CONVERSIONS [address] [place] [address] Provider, MD Sloan [address] [place] [address] Social History Tobacco Use Types Packs/Day [...] - Inhaled Oxygen Concentration - - Weight 114 kg (250 lb 15.9 oz) 06/26/2015 11:30 AM EST Height 180.3 cm (5' 11 ) 06/26/2015 11:30 AM EST Body Mass Index 35.01 06/26/2015 11:30 AM EST documented in this encounter Plan of Treatment Upcoming Encounters Date Type Department Care Team (Late st Contact Info) Description 05/10/2024 10:20 AM EST Office Visit [place] [facility] [address] [place] [address] Saba Boateng PA [address] [place] [address] documented as of this encounter Visit Diagnoses Not on filedocumented in this encounter
--- OUTSIDE RECORDS SUMMARY | 2024-04-30 08:25 | XMS_ITS | Encounter Summary ---
Author Organization [facility] Address [address] [id number] Care Team Providers Care Plant Changer Name Role Phone Kilo Sen MD Primary Care Provider +1- [phone] Reason for Visit * Reason Onset Date Comments infusion labs 01/19/2021 Encounter Details Date Type Department Care Team (Late st Contact Info) Description 01/19/2021 Telephone [facility] [address] [place] [address] Saba Boateng PA [address] [place] [address] infusion labs Social History Tobacco Use Types Packs/Day Years [...] Telephone Encounter - Greta Odell RN - 01/19/2021 7:43 AM EDT Labs received from [facility] Cbc w diff, cmp and crp Collection date: 01/14/2021 Med: Entyvio q 8 weeks Due: 03/11/2021 documented in this encounter Plan of Treatment Upcoming Encounters Date Type Department Care Team (Late st Contact Info) Description 05/10/2024 10:20 AM EST [facility] [address] [place] [address] Saba Boateng PA [address] [place] [address] documented as of this encounter Visit Diagnoses Not on filedocumented in this encounter Care Teams Plant Changer Relationship Specialty Start Date End Date Kilo Sen MD [address] [place] [address] PCP - General 10/10/20 05/04/23 documented as of this encounter
--- OUTSIDE RECORDS SUMMARY | 2024-04-30 08:25 | XMS_ITS | Encounter Summary ---
Author Organization [facility] Address [address] [id number] Care Team Providers Care Reservoir Caretaker Name Role Phone Kilo Sen MD Primary Care Provider +1- [phone] Reason for Visit * Reason Onset Date Comments Infusion labs 11/27/2020 Encounter Details Date Type Department Care Team (Late st Contact Info) Description 11/27/2020 Telephone [place] [facility] [address] [place] [address] Saba Boateng PA [address] [place] [address] Infusion labs Social History Tobacco Use Types Packs/Day [...] Telephone Encounter - Greta Odell RN - 11/27/2020 9:40 AM EDT Please see scanned Lab results dated: 11/19/2020 Received from: [facility] Next provider appt: 03/24/2021 Next infusion due: Entyvio Q 8 weeks 01/14/2021 documented in this encounter Plan of Treatment Upcoming Encounters Date Type Department Care Team (Late st Contact Info) Description 05/10/2024 10:20 AM EST Office Visit [place] [facility] [address] [place] [address] Saba Boateng PA [address] [place] [address] documented as of this encounter Visit Diagnoses Not on filedocumented in this encounter Care Teams Reservoir Caretaker Relationship Specialty Start Date End Date Kilo Sen MD [address] [place] [address] PCP - General 10/10/20 05/04/23 documented as of this encounter
--- OUTSIDE RECORDS SUMMARY | 2024-04-30 08:25 | XMS_ITS | Encounter Summary ---
Author Organization Healthcare Address [address] [place] [address] Care Team Providers Care Document Preparer Microfilming Name Role Phone Unavailable Primary Care Provider Unavailabl e Encounter Details Date Type Department Care Team (Late st Contact Info) Description 09/25/2015 Legacy AEHR Vitals Encounter [facility] OUTPATIENT CONVERSIONS [address] [place] [address] Provider, MD Sloan [address] [place] [address] Social History Tobacco Use Types Packs/Day [...] - Inhaled Oxygen Concentration - - Weight 116 kg (255 lb 0.1 oz) 09/25/2015 9:41 AM EDT Height - - Body Mass Index 35.57 06/26/2015 11:30 AM EST documented in this encounter Plan of Treatment Upcoming Encounters Date Type Department Care Team (Late st Contact Info) Description 05/10/2024 10:20 AM EST Office Visit [place] [facility] [address] [place] [address] Saba Boateng PA [address] [place] [address] documented as of this encounter Visit Diagnoses Not on filedocumented in this encounter
--- OUTSIDE RECORDS SUMMARY | 2024-04-30 08:25 | XMS_ITS | Encounter Summary ---
Author Organization [facility] Address [address] [place] [address] Care Team Providers Care Arboriculture Teacher Name Role Phone Unavailable Primary Care Provider Unavailabl e Encounter Details Date Type Department Care Team (Late st Contact Info) Description 01/23/2014 Legacy AEHR Vitals Encounter [facility] OUTPATIENT CONVERSIONS [address] [place] [address] Provider, MD Sloan [address] [place] [address] Social History Tobacco Use Types Packs/Day [...] - Inhaled Oxygen Concentration - - Weight 145 kg (320 lb) 01/23/2014 1:29 PM EDT Height 180.3 cm (5' 11 ) 01/23/2014 1:29 PM EDT Body Mass Index 44.63 01/23/2014 1:29 PM EDT documented in this encounter Plan of Treatment Upcoming Encounters Date Type Department Care Team (Late st Contact Info) Description 05/10/2024 10:20 AM EST Office Visit [place] [facility] [address] [place] [address] Saba Boateng PA [address] [place] [address] documented as of this encounter Visit Diagnoses Not on filedocumented in this encounter
--- OUTSIDE RECORDS SUMMARY | 2024-04-30 08:25 | XMS_ITS | Encounter Summary ---
Author Organization [facility] Address [address] [place] [address] Care Team Providers Care Supervisor Engine Repair Name Role Phone Unavailable Primary Care Provider Unavailabl e Encounter Details Date Type Department Care Team (Late st Contact Info) Description 06/02/2015 Legacy AEHR Vitals Encounter [facility] OUTPATIENT CONVERSIONS [address] [place] [address] Provider, MD Sloan [address] [place] [address] Social History Tobacco Use Types Packs/Day [...] - Inhaled Oxygen Concentration - - Weight 112 kg (247 lb 0.1 oz) 06/02/2015 12:59 P M EST Height 180.3 cm (5' 11 ) 06/02/2015 12:59 PM EST Body Mass Index 34.45 06/02/2015 12:59 PM EST documented in this encounter Plan of Treatment Upcoming Encounters Date Type Department Care Team (Late st Contact Info) Description 05/10/2024 10:20 AM EST Office Visit [place] [facility] [address] [place] [address] Saba Boateng PA [address] [place] [address] documented as of this encounter Visit Diagnoses Not on filedocumented in this encounter
--- OUTSIDE RECORDS SUMMARY | 2024-04-30 08:25 | XMS_ITS | Encounter Summary ---
Author Organization [facility] Address [address] [place] [address] Care Team Providers Care Distribution Technician Name Role Phone Unavailable Primary Care Provider Unavailabl e Encounter Details Date Type Department Care Team (Late st Contact Info) Description 01/28/2016 Legacy AEHR Vitals Encounter [facility] OUTPATIENT CONVERSIONS [address] [place] [address] Provider, MD Sloan [address] [place] [address] Social History Tobacco Use Types Packs/Day [...] - Inhaled Oxygen Concentration - - Weight 110 kg (243 lb 3.4 oz) 01/28/2016 9:19 AM EDT Height 180.3 cm (5' 11 ) 01/28/2016 9:19 AM EDT Body Mass Index 33.92 01/28/2016 9:19 AM EDT documented in this encounter Plan of Treatment Upcoming Encounters Date Type Department Care Team (Late st Contact Info) Description 05/10/2024 10:20 AM EST Office Visit [facility] [address] [place] [address] Saba Boateng PA [address] [place] [address] documented as of this encounter Visit Diagnoses Not on filedocumented in this encounter
--- OUTSIDE RECORDS SUMMARY | 2024-04-30 08:25 | XMS_ITS | Encounter Summary ---
Author Organization [facility] Address [address] [place] [address] Care Team Providers Care Records Section Supervisor Name Role Phone Unavailable Primary Care Provider Unavailabl e Encounter Details Date Type Department Care Team (Late st Contact Info) Description 09/22/2016 Legacy AEHR Vitals Encounter [facility] OUTPATIENT CONVERSIONS [address] [place] [address] Provider, MD Sloan [address] [place] [address] Social History Tobacco Use Types Packs/Day [...] - Inhaled Oxygen Concentration - - Weight 121 kg (266 lb 4 oz) 09/22/2016 11:16 AM EDT Height 180.3 cm (5' 11 ) 09/22/2016 11:16 AM EDT Body Mass Index 37.13 09/22/2016 11:16 AM EDT documented in this encounter Plan of Treatment Upcoming Encounters Date Type Department Care Team (Late st Contact Info) Description 05/10/2024 10:20 AM EST Office Visit [place] [facility] [address] [place] [address] Saba Boateng PA [address] [place] [address] documented as of this encounter Visit Diagnoses Not on filedocumented in this encounter
--- OUTSIDE RECORDS SUMMARY | 2024-04-30 08:25 | XMS_ITS | Encounter Summary ---
Author Organization [facility] Address [address] [place] [address] Care Team Providers Care Sawmill Tally Clerk Name Role Phone Unavailable Primary Care Provider Unavailabl e Encounter Details Date Type Department Care Team (Late st Contact Info) Description 01/20/2015 Legacy AEHR Vitals Encounter [facility] OUTPATIENT CONVERSIONS [address] [place] [address] Provider, MD Sloan [address] [place] [address] Social History Tobacco Use Types Packs/Day [...] - Inhaled Oxygen Concentration - - Weight 123 kg (271 lb 0.2 oz) 01/20/2015 1:36 PM EDT Height 180.3 cm (5' 11 ) 01/20/2015 1:36 PM EDT Body Mass Index 37.8 01/20/2015 1:36 PM EDT documented in this encounter Plan of Treatment Upcoming Encounters Date Type Department Care Team (Late st Contact Info) Description 05/10/2024 10:20 AM EST Office Visit [facility] [address] [place] [address] Saba Boateng PA [address] [place] [address] documented as of this encounter Visit Diagnoses Not on filedocumented in this encounter
--- OUTSIDE RECORDS SUMMARY | 2024-04-30 08:25 | XMS_ITS | Encounter Summary ---
Author Organization [facility] Address [address] [place] [address] Care Team Providers Care Powerhouse Mechanic Helper Name Role Phone Unavailable Primary Care Provider Unavailabl e Encounter Details Date Type Department Care Team (Late st Contact Info) Description 09/26/2013 Legacy AEHR Vitals Encounter [facility] OUTPATIENT CONVERSIONS [address] [place] [address] Provider, MD Sloan [address] [place] [address] Social History Tobacco Use Types Packs/Day [...] - Inhaled Oxygen Concentration - - Weight 147 kg (324 lb 0.2 oz) 09/26/2013 3:49 PM EDT Height 180.3 cm (5' 11 ) 09/26/2013 3:49 PM EDT Body Mass Index 45.19 09/26/2013 3:49 PM EDT documented in this encounter Plan of Treatment Upcoming Encounters Date Type Department Care Team (Late st Contact Info) Description 05/10/2024 10:20 AM EST Office Visit [place] [facility] [address] [place] [address] Saba Boateng PA [address] [place] [address] documented as of this encounter Visit Diagnoses Not on filedocumented in this encounter
--- OUTSIDE RECORDS SUMMARY | 2024-04-30 08:25 | XMS_ITS | Encounter Summary ---
Author Organization [facility] Address [address] [place] [address] Care Team Providers Care Certified Family Mediator Name Role Phone Unavailable Primary Care Provider Unavailabl e Encounter Details Date Type Department Care Team (Late st Contact Info) Description 06/05/2014 Legacy AEHR Vitals Encounter [facility] OUTPATIENT CONVERSIONS [address] [place] [address] Provider, MD Sloan [address] [place] [address] Social History Tobacco Use Types Packs/Day [...] Weight 146 kg (321 lb 0.2 oz) 06/05/2014 11:52 A M EST Height 180.3 cm (5' 11 ) 06/05/2014 11:52 AM EST Body Mass Index 44.77 06/05/2014 11:52 AM EST documented in this encounter Plan of Treatment Upcoming Encounters Date Type Department Care Team (Late st Contact Info) Description 05/10/2024 10:20 AM EST [facility] [address] [place] [address] Saba Boateng PA [address] [place] [address] documented as of this encounter Visit Diagnoses Not on filedocumented in this encounter
[2024-04-30 08:27] VITALS: BMI 36.2
[2024-04-30 08:48] LABS: Basophils # 0.1 K/mm3 (0-0.2); Basophils % 1.2 % (0.1-2.0); Eosinophils % 14.4 % (0.1-12.0); Hematocrit 42.5 % (42.0-52.0); Hemoglobin 14.7 g/dL (14.1-18.0); Lymphocytes # 1.5 K/mm3 (0.7-4.5); Lymphocytes % 22.1 % (10-50); Mean Corpuscular HGB Conc 34.5 g/dL (31.8-35.4); Mean Corpuscular Hemoglobin 29.7 pg (27.0-31.2); Mean Corpuscular Volume 86.1 fl (80-94); Mean Platelet Volume 7.7 fl (7.4-10.4); Monocytes # 0.5 K/mm3 (0.1-1.0); Monocytes % 6.6 % (1.7-9.3); Neutrophils # 3.9 K/mm3 (1.8-7.8); Neutrophils % 55.8 % (37.0-80.0); Platelet Count 221 K/mm3 (142-424); Red Blood Count 4.94 M/mm3 (4.60-6.20); Red Cell Distribution Width 14.4 % (11.5-17.5); White Blood Count 6.9 K/mm3 (4.8-10.8)
[2024-04-30 08:58] LABS: Chloride 107 mmol/L (98-107); Potassium 3.6 mmoL/L (3.5-5.1); Sodium 140 mmol/L (136-145)
[2024-04-30 09:01] LABS: Alanine Aminotransferase 21 U/L (12-78); Albumin/Globulin Ratio 1.5 (1.1-1.8); Alkaline Phosphatase 56 U/L (38-126); Anion Gap 10.6 mEq/L (5-15); Aspartate Amino Transferase 32 U/L (17-59); Bilirubin,Total 0.6 mg/dl (0.2-1.3); Blood Urea Nitrogen 7 mg/dl (9-20); Carbon Dioxide 26 mmol/L (22.0-30.0); Creatinine Clearance Estimated 128 mL/min (50-200); Estimated Glomerular Filt Rate 98 ml/min (>60); GFR (African American) 119 ML/MIN (>60); Globulin 2.7 g/dL (1.3-3.2); Glucose 132 mg/dl (74-100); Total Protein,Serum 6.7 g/dl (6.3-8.2)
[2024-04-30 09:07] LABS: C-Reactive Protein 1.6 mg/L (0-4)
[2024-04-30] MEDS: SODIUM CHLORIDE 0.9% 10ML FLUSH SYRINGE 10 ML IV (09:30)
[2024-04-30] MEDS: SODIUM CHLORIDE 0.9% 50ML BAG 50 ML IV (09:44)
[2024-04-30] MEDS: VEDOLIZUMAB 300 MG in 0.9 % SODIUM CHLORIDE 250 ML 500 MG IV (09:44)
[2024-04-30 09:49] VITALS: BP 143/85; PULSE 72; RESP 18; O2SAT 96
[2024-04-30 10:30] VITALS: BP 124/76; PULSE 68; RESP 18; O2SAT 96
== END 2024-04-30 10:30 ==
LOC: INF 08:21
PROVIDERS: PCP Family Medicine; Visit Provider Physician Assistant
DX: Z53.21 Procedure and treatment not carried out due to patient leaving prior to being seen by health care provider (principal)
CPT/HCPCS: 80053; 85025; 86140; 96413; J3380

== ENCOUNTER 2024-06-27 08:18 | Outpatient (CLI) | payer BC, SELFPAY ==
[2024-06-27 08:23] VITALS: BMI 36.2
[2024-06-27 08:43] LABS: Basophils # 0.1 K/mm3 (0-0.2); Basophils % 1.2 % (0.1-2.0); Eosinophils # 1.1 K/mm3 (0.0-0.4); Eosinophils % 15.7 % (0.1-12.0); Hematocrit 43.7 % (42.0-52.0); Hemoglobin 14.6 g/dL (14.1-18.0); Lymphocytes # 1.9 K/mm3 (0.7-4.5); Lymphocytes % 27.5 % (10-50); Mean Corpuscular HGB Conc 33.4 g/dL (31.8-35.4); Mean Corpuscular Hemoglobin 29.1 pg (27.0-31.2); Mean Corpuscular Volume 87.2 fl (80-94); Mean Platelet Volume 9.7 fl (7.4-10.4); Monocytes # 0.6 K/mm3 (0.1-1.0); Monocytes % 8.8 % (1.7-9.3); Neutrophils # 3.2 K/mm3 (1.8-7.8); Neutrophils % 46.5 % (37.0-80.0); Platelet Count 244 K/mm3 (142-424); Red Blood Count 5.01 M/mm3 (4.60-6.20); Red Cell Distribution Width 13.6 % (11.5-17.5); White Blood Count 6.8 K/mm3 (4.8-10.8)
[2024-06-27] MEDS: VEDOLIZUMAB 300 MG in 0.9 % SODIUM CHLORIDE 250 ML 500 MG IV (08:43)
[2024-06-27] MEDS: SODIUM CHLORIDE 0.9% 50ML BAG 50 ML IV (08:43)
[2024-06-27 08:46] VITALS: BP 148/89; PULSE 72; RESP 18; TEMP 37; O2SAT 98
[2024-06-27 08:49] LABS: Albumin Level 4.1 g/dl (3.5-5.0); Chloride 107 mmol/L (98-107); Potassium 3.9 mmoL/L (3.5-5.1); Sodium 141 mmol/L (136-145)
[2024-06-27 08:52] LABS: Alanine Aminotransferase 23 U/L (12-78); Albumin/Globulin Ratio 1.5 (1.1-1.8); Alkaline Phosphatase 53 U/L (38-126); Anion Gap 11.9 mEq/L (5-15); Aspartate Amino Transferase 24 U/L (17-59); Bilirubin,Total 0.7 mg/dl (0.2-1.3); Blood Urea Nitrogen 7 mg/dl (9-20); Carbon Dioxide 26 mmol/L (22.0-30.0); Creatinine Clearance Estimated 128 mL/min (50-200); Estimated Glomerular Filt Rate 98 ml/min (>60); GFR (African American) 119 ML/MIN (>60); Globulin 2.8 g/dL (1.3-3.2); Total Protein,Serum 6.9 g/dl (6.3-8.2)
[2024-06-27 08:53] LABS: Calcium 9.2 mg/dl (8.4-10.2); Glucose 113 mg/dl (74-100)
[2024-06-27 09:25] VITALS: BP 156/93; PULSE 79; RESP 18; O2SAT 98
[2024-06-27 10:16] LABS: C-Reactive Protein 0.3 mg/L (0-4)
== END 2024-06-27 09:25 | disposition home or self-care (01) ==
LOC: INF 08:19
PROVIDERS: PCP Family Medicine; Visit Provider Physician Assistant
DX: K50.10 Crohn's disease of large intestine without complications (principal)
CPT/HCPCS: 80053; 85025; 86140; 96413; J3380

== ENCOUNTER 2024-08-22 08:13 | Outpatient (CLI) | payer BC, SELFPAY ==
[2024-08-22 08:24] VITALS: BMI 36.2
[2024-08-22 08:50] VITALS: BP 152/91; PULSE 81; RESP 18; TEMP 36.9; O2SAT 96
[2024-08-22] MEDS: VEDOLIZUMAB 300 MG in 0.9 % SODIUM CHLORIDE 250 ML 500 MG IV (08:50)
[2024-08-22 09:14] LABS: Alanine Aminotransferase 19 U/L (12-78); Albumin Level 4.2 g/dl (3.5-5.0); Albumin/Globulin Ratio 1.6 (1.1-1.8); Alkaline Phosphatase 48 U/L (38-126); Anion Gap 11.9 mEq/L (5-15); Aspartate Amino Transferase 24 U/L (17-59); Bilirubin,Total 0.6 mg/dl (0.2-1.3); Blood Urea Nitrogen 9 mg/dl (9-20); Calcium 9.4 mg/dl (8.4-10.2); Carbon Dioxide 24 mmol/L (22.0-30.0); Chloride 107 mmol/L (98-107); Creatinine Clearance Estimated 126 mL/min (50-200); Estimated Glomerular Filt Rate 98 ml/min (>60); GFR (African American) 118 ML/MIN (>60); Globulin 2.6 g/dL (1.3-3.2); Glucose 128 mg/dl (74-100); Potassium 3.9 mmoL/L (3.5-5.1); Sodium 139 mmol/L (136-145); Total Protein,Serum 6.8 g/dl (6.3-8.2)
[2024-08-22 09:29] LABS: Chol/HDL Ratio 6.3 (1-3.5); Cholesterol 177 mg/dl (140-200); HDL Cholesterol 28 mg/dl (40-60); Triglycerides 130 mg/dl (30-150); VLDL Cholesterol 26 mg/dL (0-40)
[2024-08-22 09:31] VITALS: BP 149/99; PULSE 79; RESP 18; O2SAT 96
[2024-08-22] MEDS: SODIUM CHLORIDE 0.9% 50ML BAG 50 ML IV (09:31)
[2024-08-22 09:41] LABS: Direct LDL Cholesterol 121.99 mg/dL (100-129)
[2024-08-22 09:45] LABS: Thyroid Stimulating Hormone 0.93 uIU/mL (0.465-4.68)
[2024-08-22 10:00] LABS: Prostate Specific Ag Screen 2.7 ng/ml (0.0-4.0)
== END 2024-08-22 09:31 | disposition home or self-care (01) ==
LOC: INF 08:14
PROVIDERS: PCP Family Medicine; Visit Provider Physician Assistant
DX: K50.10 Crohn's disease of large intestine without complications (principal)
CPT/HCPCS: 80053; 80061; 83036; 84443; 96413; G0103; J3380

== ENCOUNTER 2024-10-17 08:20 | Outpatient (CLI) | payer BC, SELFPAY ==
[2024-10-17 08:22] VITALS: BMI 36.2
[2024-10-17 08:38] LABS: Basophils # 0.1 K/mm3 (0-0.2); Basophils % 1.3 % (0.1-2.0); Eosinophils # 0.9 Kmm3 (0.0-0.4); Eosinophils % 12.9 % (0.1-12.0); Hemoglobin 13.9 g/dL (14.1-18.0); Immature Granulocytes # 0.02 10^3uL; Immature Granulocytes % 0.3 %; Lymphocytes # 1.7 K/mm3 (0.7-4.5); Lymphocytes % 25.1 % (10-50); Mean Corpuscular HGB Conc 33.1 g/dL (31.8-35.4); Mean Corpuscular Volume 87.5 fl (80-94); Mean Platelet Volume 10.3 fl (7.4-10.4); Monocytes # 0.5 K/mm3 (0.1-1.0); Neutrophils # 3.6 K/mm3 (1.8-7.8); Neutrophils % 53.4 % (37.0-80.0); Nucleated Red Blood Cells # 0 10^3/uL; Nucleated Red Blood Cells % 0 %; Platelet Count 224 K/mm3 (142-424); Red Cell Distribution Width 13.6 % (11.5-17.5); Red Cell Distribution Width-SD 43.3 fL; White Blood Count 6.8 K/mm3 (4.8-10.8)
[2024-10-17] MEDS: SODIUM CHLORIDE 0.9% 50ML BAG 50 ML IV (08:40)
[2024-10-17] MEDS: VEDOLIZUMAB 300 MG in 0.9 % SODIUM CHLORIDE 250 ML 500 MG IV (08:40)
[2024-10-17 08:45] VITALS: BP 127/86; PULSE 72; RESP 18; O2SAT 97
[2024-10-17 08:58] LABS: Alanine Aminotransferase 19 U/L (12-78); Albumin Level 4.1 g/dl (3.5-5.0); Albumin/Globulin Ratio 1.7 (1.1-1.8); Alkaline Phosphatase 47 U/L (38-126); Aspartate Amino Transferase 24 U/L (17-59); Bilirubin,Total 0.5 mg/dl (0.2-1.3); Blood Urea Nitrogen 9 mg/dl (9-20); Carbon Dioxide 26 mmol/L (22.0-30.0); Chloride 108 mmol/L (98-107); Creatinine Clearance Estimated 126 mL/min (50-200); Estimated Glomerular Filt Rate 114 ml/min (>60); GFR (African American) 138 ML/MIN (>60); Globulin 2.4 g/dL (1.3-3.2); Glucose 115 mg/dl (74-100); Sodium 139 mmol/L (136-145); Total Protein,Serum 6.5 g/dl (6.3-8.2)
[2024-10-17 09:08] LABS: C-Reactive Protein < 0.3 mg/L (0-4)
[2024-10-17 09:28] VITALS: BP 140/81; PULSE 69; RESP 18; O2SAT 98
== END 2024-10-17 09:28 | disposition home or self-care (01) ==
LOC: INF 08:21
PROVIDERS: PCP Family Medicine; Visit Provider Physician Assistant
DX: K50.80 Crohn's disease of both small and large intestine without complications (principal)
CPT/HCPCS: 80053; 85025; 86140; 96413; J3380

== ENCOUNTER 2025-01-16 08:26 | Outpatient (CLI) | payer BC, SELFPAY ==
[2025-01-16] MEDS: SODIUM CHLORIDE 0.9% 10ML FLUSH SYRINGE 10 ML IV (08:39)
[2025-01-16 08:42] LABS: Hematocrit 43.3 % (42.0-52.0); Hemoglobin 13.8 g/dL (14.1-18.0); Immature Granulocytes % 0.2 %; Mean Corpuscular HGB Conc 31.9 g/dL (31.8-35.4); Mean Corpuscular Hemoglobin 28.2 pg (27.0-31.2); Mean Corpuscular Volume 88.5 fl (80-94); Nucleated Red Blood Cells % 0 %; Platelet Count 206 K/mm3 (142-424); Red Blood Count 4.89 M/mm3 (4.60-6.20); Red Cell Distribution Width-SD 44.3 fL; White Blood Count 5.7 K/mm3 (4.8-10.8)
[2025-01-16 08:45] LABS: Albumin Level 4.3 g/dl (3.5-5.0); Chloride 111 mmol/L (98-107); Potassium 4.1 mmoL/L (3.5-5.1); Sodium 141 mmol/L (136-145)
[2025-01-16 08:48] LABS: Alanine Aminotransferase 21 U/L (12-78); Albumin/Globulin Ratio 1.4 (1.1-1.8); Alkaline Phosphatase 56 U/L (38-126); Anion Gap 9.1 mEq/L (5-15); Aspartate Amino Transferase 32 U/L (17-59); Bilirubin,Total 0.7 mg/dl (0.2-1.3); Blood Urea Nitrogen 11 mg/dl (9-20); Calcium 9.2 mg/dl (8.4-10.2); Carbon Dioxide 25 mmol/L (22.0-30.0); Creatinine,Serum 0.70 mg/dl (0.66-1.25); Estimated Glomerular Filt Rate 114 ml/min (>60); GFR (African American) 138 ML/MIN (>60); Globulin 3.0 g/dL (1.3-3.2); Glucose 122 mg/dl (74-100); Total Protein,Serum 7.3 g/dl (6.3-8.2)
[2025-01-16 08:50] VITALS: BP 150/80; PULSE 81; RESP 18; TEMP 36.6; O2SAT 98
[2025-01-16] MEDS: VEDOLIZUMAB 300 MG in 0.9 % SODIUM CHLORIDE 250 ML 500 MG IV (08:50)
[2025-01-16 08:53] LABS: C-Reactive Protein 1.0 mg/L (0-4)
[2025-01-16 09:25] VITALS: BP 141/79; PULSE 78
== END 2025-01-16 09:30 | disposition home or self-care (01) ==
LOC: INF 08:27
PROVIDERS: PCP Family Medicine; Visit Provider Physician Assistant
DX: K50.10 Crohn's disease of large intestine without complications (principal)
CPT/HCPCS: 80053; 85025; 86140; 96413; J3380; J7050

== ENCOUNTER 2025-03-13 08:27 | Outpatient (CLI) | payer BC, SELFPAY ==
--- OUTSIDE RECORDS SUMMARY | 2024-02-22 05:30 | XMS_ITS ---
[facility] Address [address] [facility] [address] [facility] [address] [place] [id number] Care Team Providers Care Riveting Machine Operator Automatic Name Role Phone RivertonMarck pearsonian Primary Care Provider Allergies No Known Allergies Results Component Value Reference Range Notes Glucose (In-House) Reviewed date:03/02/2024 02:07:51 PM Interpretation:128 Performing Lab: Notes/Report: 128 blood glucose 128 74 - 106 mg/dL Glycohemoglobin A1c (in hous e) Reviewed date:03/02/2024 02:08:13 PM Interpretation:6.0, normal Performing Lab: Notes/Report: 6.0, normal glycohemoglobin 6.0% 5 - 6.5 % REASON FOR VISIT 6 Month Check Up Medications Medication SIG (Take, Route, Frequency, Duration) Notes Start Date End Date Status Losartan Potassium 50 MG 1 tablet Orally once daily; Duration: 90 days Active Albuterol Sulfate HFA 108 (90 Base) MCG/ACT 2 puff(s) inhaled every 6 hours as needed 05/31/2022 Active Entyvio 300 MG as directed intraven ously every 8 weeks Active Immunizations Vaccine Route Administration Date Status Comme nts Fluzone Quad (6months&older) IM Intramuscular 02/22/2024 Administered Vital Signs Blood pressure systolic 132 mm Hg 02/22/20 24 Blood pressure diastolic 80 mm Hg 024 Heart Rate 85 /min 02/22/2024 Height 70.75 in 02/22/2024 Weight 265.2 lbs 02/22/2024 BMI 37.25 kg/m2 02/22/2024 Encounters Encounter Location Date Provider Diagnosis [facility] [address] [facility] [address] [facility] [address] [place] [id number] 02/22/2024 Zac Alexander Essential hypertensi on I10 ; Type 2 diabetes mellitus without complication E11.9 ; Non morbid obesity due to excess calories E66.09 and Encounter for immunization Z23 Assessments Encounter Date Diagnosis (ICD Code) Assessment Notes Treatment Notes Treatment Clinical Notes Section Notes 02/22/2024 Essential hypertension (ICD-10 - I10) 02/22/2024 Type 2 diabetes mellitus without complication (ICD-10 - E11.9) 02/22/2024 Non morbid obesity due to excess calories (ICD-10 - E66.09) 02/22/2024 Encounter for immunization (ICD-10 - Z23) Plan Of Treatment Medication Medication Name Sig Start Date Stop Date Notes Losartan Potassium 50 MG 1 tablet Orally once daily; Duration: 90 days Next Appt Details Follow Up: 6 Months, Reason: Provider Name:Zac Galan , 08/21/2025 09:15:00 AM, [address] [facility] [address] [facility], [address], [place], [id number], Progress Notes * AKINElieserDOB:1960 (64 yo M)Acc No.[id number]:02/22/2024 Progress Notes Patient: Elieser ARORA Provider: Mariana Alexander M.D. :1960 A ge:63 Y S ex:Male Date:02/22/2024 Phone: Address:[address] [place] [address], [place], [place] Subjective: * Chief Complaints: * 1 . 6 Month Check Up. * HPI: C ardiology: 63 year old male presents with c/o Blood Pressure Elevated P t here for 6 mo f/u on hypertension, states he is doing well and does not have any concerns. E ndocrinology: c/o Recent Blood Sugars P t here to f/u on DM 2, pt states he does check blood sugar sometimes and it is normal when he does. * ROS: D ERMATOLOGY: no R mckinley. n o H joanna. G ASTROENTEROLOGY: no N ausea. n o V omiting. U ROLOGY: no D ifficulty urinating. n o B lood in urine. * Medical History: C rohn's Disease, Hypertension, Type 2 Diabetes. * Surgical History: C olonoscopy 06/09/2015. * Hospitalization/Major Diagno stic Procedure: D enies Past Hospitalization. * Family History: F ather: , diabetes, CHF. M other: alive, heart attack X 1. 2 brother(s) - healthy. 2 daughter(s) - healthy. . * Social History: C affeine: yes, frequency:tea, daily. Marital Status: . Alcohol: Yes, socially. * Medications: T aking Entyvio 300 MG Solution Reconstituted as directed intravenously every 8 weeks , Taking Albuterol Sulfate HFA 108 (90 Base) MCG/ACT Aerosol Solution 2 puff(s) inhaled every 6 hours as needed , Taking Losartan Potassium 50 MG Tablet 1 tablet Orally once daily , Medication List reviewed and reconciled with the patient * Allergies: N .K.D.A. Objective: * Vitals: W t:265.2, Temp:97.9, BP:132/80, HR:85, Nurse:nathaniel, Ht: 70.75, BMI:37.25. * Examination: C ardiology: General Appearance: p leasant, NAD, BMI 37.25. H EENT:?unremarkable. H eart sounds: R RR, normal S1, S2. L ungs: c lear, no rales or wheezes. E xtremities: n o leg edema. P eripheral pulses: 2 plus bilateral. ? Assessment: * Assessment: 1. E ssential hypertension - I10 (Primary) 2 . T ype 2 diabetes mellitus without complication - E11.9 3 . N on morbid obesity due to excess calories - E66.09 4 . E ncounter for immunization - Z23 Plan: * Treatment: 2. T ype 2 diabetes mellitus without complication L AB: Glucose (In-House) (Collection Date & Time - 02/22/2024) 1 28 Value Reference Range b lood glucose 128 74 - 106 mg/dL * Leyla Willson 02/24/2024 10:54:3 0 AM > Tried to call to inform pt, no answer and no voicemailLeyla Willson 02/29/2024 1:43:11 PM > Tried to call pt, no voicemail setupKingLeyla 03/02/2024 2:07:42 PM > Pt informed ?LAB: Glycohemoglobin A1c (in house) (Collection Date & Time - 02/22/2024)? 6.0, normal* Value Reference Range g lycohemoglobin 6.0% 5 - 6.5 % * Leyla Willson 02/22/2024 9:59:02 AM >Leyla Willson 02/24/2024 10:55:17 AM > Tried to call pt to inform, no answer and no voicemailKingLeyla 03/02/2024 2:08:03 PM > Pt informed * Immunizations: Fluzone Quad (6months&older) : 0.5 mL (Route: Intramuscular) given by Leyla Willson on Right Deltoid (Encounter for immunization) * Procedure Codes: 3 6416 CAPILLARY BLOOD DRAW, 58097 GLUCOSE TEST, 86499 GLYCATED HEMOGLOBIN TEST, Modifiers: QW * Follow Up: 6 Months * Images: Billing Information: * Visit Code: 78686 Office Visit, Est Pt., Level 4. * Procedure Codes: 66526 CAPILLARY BLOOD DRAW. 84824 GLUCOSE TEST. 03595 GLYCATED HEMOGLOBIN TEST. Modifiers: QW * Electronic signature of Bethany Alexander MD on 03/13/2025 at 08:36 AM EDT Sign off status: Pending * Provider: Mariana Alexander M.D. Date: 0 02/22/2024 Generated for Sherlyn bailey/Bay/eTaudrasmitting on: 1 08:36 AM EDT History and Physical Notes * HPI (History of Present Illness) Category Sub-Category Detail Notes Category Not es Endocrinology Recent Blood Sugars Pt here to f /u on DM 2, pt states he does check blood sugar sometimes and it is normal when he does Cardiology Blood Pressure Elevated Pt here for 6 mo f/u on hypertension, states he is doing well and does not have any concerns Examination Category Sub-Category Detail Notes Category Not es Cardiology Lungs: clear, no rales or wheezes HEENT: unremarkable Heart sounds: RRR, normal S1, S2 Extremities: no leg edema Peripheral pulses: 2 plus bilateral General Appearance: pleasant, NAD, BMI 3 7.25
--- OUTSIDE RECORDS SUMMARY | 2024-08-22 06:00 | XMS_ITS ---
[facility] Address [address] [facility] [address] [facility] [address] [place] [id number] Care Team Providers Care Highway Engineer Name Role Phone Zac Alexander Primary Care Provider [phone] Allergies No Known Allergies Results Component Value Reference Range Notes P-Microalbumin/Creatinine, R andom Urine Sample Reviewed date:08/25/2024 10:34:40 AM Interpretation:Normal Performing Lab: Notes/Report: Test performed by [email or web address] [address] [place] [address] , [address], [place] [address] Oli Chavarria MD, Test Manager CLIA: [id number] Albumin/Creatinine Ratio, Urine 4 0-30 ug/m g Microalbumin, Urine, Random 0.3 Creatinine, Urine 70.9 REASON FOR VISIT 6 month follow up Medications Medication SIG (Take, Route, Frequency, Duration) Notes Start Date End Date Status Entyvio 300 MG as directed intraven ously every 8 weeks Active Losartan Potassium 50 MG 1 tablet Orally once daily; Duration: 90 days Active Albuterol Sulfate HFA 108 (90 Base) MCG/ACT 2 puff(s) inhaled every 6 hours as needed 05/31/2022 Active Vital Signs Blood pressure systolic 154 mm Hg 08/23/19 25 Blood pressure diastolic 84 mm Hg 025 Heart Rate 85 /min 08/22/2024 Height 70.75 in 08/22/2024 Weight 267 lbs 08/22/2024 BMI 37.5 kg/m2 08/22/2024 Encounters Encounter Location Date Provider Diagnosis [facility] [address] [facility] [address] [facility] [address] [place] [id number] 08/22/2024 Zac Alexander Essential hypertensi on I10 ; Type 2 diabetes mellitus without complication E11.9 and Non morbid obesity due to excess calories E66.09 Assessments Encounter Date Diagnosis (ICD Code) Assessment Notes Treatment Notes Treatment Clinical Notes Section Notes 08/22/2024 Essential hypertension (ICD-10 - I10) 08/22/2024 Type 2 diabetes mellitus without complication (ICD-10 - E11.9) 08/22/2024 Non morbid obesity due to excess calories (ICD-10 - E66.09) 08/22/2024 Other Lab results reviewed and results provided to patient in office today (CMP, Lipid & TSH) Plan Of Treatment Medication Medication Name Sig Start Date Stop Date Notes Losartan Potassium 50 MG 1 tablet Orally once daily; Duration: 90 days Treatment Notes Assessment Notes Other Lab results reviewed and results provided to patient in office today (CMP, Lipid & TSH) Next Appt Details Follow Up: 6 Months, Reason: Provider Name:Zac Galan , 08/21/2025 09:15:00 AM, [address], [address] , [place], [place], [id number], Progress Notes * AKINElieserDOB:1960 (64 yo M)Acc No.[id number]:08/22/2024 Progress Notes Patient: Elieser ARORA Provider: Mariana Alexander M.D. :1960 A ge:64 Y S ex:Male Date:08/22/2024 Phone: Address:[address] [place] [address], [id number] Subjective: * Chief Complaints: * 1 . 6 month follow up. * HPI: C ardiology: 64 year old male presents with c/o Blood Pressure Elevated P t here for 6 mo f/u on hypertension, states he is doing well and does not have any concerns. E ndocrinology: c/o Recent Blood Sugars P t here to f/u DM 2, pt states when he does check blood sugar at home it is typically 100-110. * ROS: D ERMATOLOGY: no R mckinley. [...] Allergies: N .K.D.A. Objective: * Vitals: W t: 267, Temp: 97.9, BP: 154/84, HR: 85, Nurse: nathaniel, Ht: 70.75, Repeat BP:136/84, BMI:37.5. * Examination: C ardiology: General Appearance: p [...] obesity due to excess calories - E66.09 Plan: * Treatment: Value Reference Range A lbumin/Creatinine Ratio, Urine 4 0-30 - ug /mg * C reatinine, Urine 70.9 - mg/dL * M icroalbumin, Urine, Random 0.3 - mg/dL * Leyla Willson 08/25/2024 10:34:2 9 AM > Pt informed 2.?Others? Notes: Lab results reviewed and results provided to patient in office today (CMP, Lipid & TSH) ? * Procedure Codes: 3 044F HG A1C LEVEL LT 7.0%, 3075F SYST BP GE 130 - 139MM HG, 3079F DIAST BP 80-89 MM HG * Follow Up: 6 Months * Images: Billing Information: * Visit Code: 20094 Office Visit, Est Pt., Level 4. * Procedure Codes: 3044F HG A1C LEVEL LT 7.0%. 3075F SYST BP GE 130 - 139MM HG. 3079F DIAST BP 80-89 MM HG. * Electronic signature of Bethany Alexander MD on 03/13/2025 at 08:35 AM EDT Sign off status: Pending * Provider: Mariana Alexander M.D. Date: 0 08/22/2024 Generated for Sherlyn bailey/Bay/Amyitting on: 1 08:35 AM EDT History and Physical Notes * HPI (History of Present Illness) Category Sub-Category Detail Notes Category Not es Endocrinology Recent Blood Sugars Pt here to f /u DM 2, pt states when he does check blood sugar at home it is typically 100-110 Cardiology Blood Pressure Elevated Pt here for [...]
--- OUTSIDE RECORDS SUMMARY | 2025-02-21 05:15 | XMS_ITS ---
Author Organization [facility] Address [address] [facility] [address] [facility] [address] [place] [id number] Care Team Providers Care Director Of Medical Services Name Role Phone WaterlooMarck pearsonian Primary Care Provider [phone] Allergies No Known Allergies Results Component Value Reference Range Notes Glucose (In-House) Reviewed date:02/22/2025 11:53:27 AM Interpretation:112 Performing Lab: Notes/Report: 112 blood glucose 112 74 - 106 mg/dL Glycohemoglobin A1c (in hous e) Reviewed date:02/22/2025 11:53:27 AM Interpretation:5.9 Performing Lab: Notes/Report: 5.9 glycohemoglobin 5.9% 5 - 6.5 % REASON FOR VISIT 6 months Medications Medication SIG (Take, Route, Frequency, Duration) Notes Start Date End Date Status Albuterol Sulfate HFA 108 (90 Base) MCG/ACT 2 puff(s) inhaled every 6 hours as needed 05/31/2022 Active Entyvio 300 MG as directed intraven ously every 8 weeks Active Losartan Potassium 50 MG 1 tablet Orally once daily Active Immunizations Vaccine Route Administration Date Status Comme nts Fluzone Quad (6months&older) IM Intramuscular 02/21/2025 Administered Vital Signs Blood pressure systolic 162 mm Hg 02/22/20 25 Blood pressure diastolic 90 mm Hg 025 Heart Rate 92 /min 02/21/2025 Height 70.75 in 02/21/2025 Weight 258 lbs 02/21/2025 BMI 36.23 kg/m2 02/21/2025 Encounters Encounter Location Date Provider Diagnosis [facility] [address] [facility] [address] [place], [place] [id number] 02/21/2025 Zac Alexander Essential hypertensi on I10 ; Type 2 diabetes mellitus without complication E11.9 and Encounter for immunization Z23 Assessments Encounter Date Diagnosis (ICD Code) Assessment Notes Treatment Notes Treatment Clinical Notes Section Notes 02/21/2025 Essential hypertension (ICD-10 - I10) 02/21/2025 Type 2 diabetes mellitus without complication (ICD-10 - E11.9) Conitnue diet control 02/21/2025 Encounter for immunization (ICD-10 - Z23) Plan Of Treatment Medication Medication Name Sig Start Date Stop Date Notes Losartan Potassium 50 MG 1 tablet Orally once daily Treatment Notes Assessment Notes Type 2 diabetes mellitus without complic ation Conitnue diet control Next Appt Details Follow Up: 6 Months, Reason: Provider Name:Zac Galan ry, 08/21/2025 09:15:00 AM, [address] [facility] [address] [facility], [address], [place], [place], [id number], Progress Notes * Elieser EGRARDODOB:1960 (64 yo M)Acc No.[id number]:02/21/2025 Progress Notes Patient: Elieser ARORA Provider: Mariana Alexander M.D. :1960 A ge:64 Y S ex:Male Date:02/21/2025 Phone: Address:[address] [place] [address], [place], [id number] Subjective: * Chief Complaints: * 1 . 6 months. * HPI: C ardiology: 64 year old male presents with c/o Blood Pressure Elevated P t here for 6 mo checkup on hypertension. Pt states he is doing well and does not have any concerns at this time. E ndocrinology: c/o Recent Blood Sugars P t here to check up on DM 2. * Medical History: C rohn's Disease, Hypertension, [...] . Alcohol: Yes, socially. * Medications: T akinsilvia Entyvio 300 MG Solution Reconstituted as directed intravenously every 8 weeks , Taking Albuterol Sulfate HFA 108 (90 Base) MCG/ACT Aerosol Solution 2 puff(s) inhaled every 6 hours as needed , Taking Losartan Potassium 50 MG Tablet 1 tablet Orally once daily , Medication List reviewed and reconciled with the patient * Allergies: N .K.D.A. Objective: * Vitals: W t: 258, Temp: 97.7, BP: 162/90, HR: 92, Nurse: nathaniel, Ht: 70.75, Repeat BP: 132/78, BMI:36.23. * Examination: C ardiology: General Appearance: p leasant, NAD. H EENT: u nremarkable. H eart sounds: R RR, normal S1, S2. L ungs: c lear, no rales or wheezes.?Extremities: n o leg edema. P eripheral pulses: 2 plus bilateral. ? Assessment: * Assessment: 1. E ssential hypertension - I10 (Primary) 2 . T ype 2 diabetes mellitus without complication - E11.9 3 . E ncounter for immunization - Z23 ? Plan: * Treatment: 2. T ype 2 diabetes mellitus without complication L AB: Glucose (In-House) (Collection Date & Time - 02/21/2025) 1 12 Value Reference Range b lood glucose 112 74 - 106 mg/dL * Leyla Willson 02/21/2025 09:51: 16 AM EDT > Lacey Lockwood 02/22/2025 10:45:26 AM EDT > labs are satisfactory Leyla Willson 02/22/2025 11:52:51 AM EDT > Pt notified ?LAB: Glycohemoglobin A1c (in house) (Collection Date & Time - 02/21/2025)? 5.9* Value Reference Range g lycohemoglobin 5.9% 5 - 6.5 % * Leyla Willson 02/21/2025 09:52: 04 AM EDT > Lacey Lockwood 02/22/2025 10:45:26 AM EDT > labs are satisfactory Leyla Willson 02/22/2025 11:52:51 AM EDT > Pt notified Notes: Conitnue diet control?? * Immunizations: Fluzone Quad (6months&older) : 0.5 mL (Route: Intramuscular) given by Leyla Willson on Right Deltoid (Encounter for immunization) * Procedure Codes: 3 6416 CAPILLARY BLOOD DRAW, 10160 GLUCOSE TEST, 16472 GLYCATED HEMOGLOBIN TEST, Modifiers: QW , 3044F HG A1C LEVEL LT 7.0%, 3075F SYST BP GE 130 - 139MM HG, 3078F DIAST BP < 80 MM HG * Preventive Medicine: Screening / Special Tests: C olonoscopy o rdered, scheduled for 03/27/2025.? * Follow Up: 6 Months * Images: Billing Information: * Visit Code: 97783 Office Visit, Est Pt., Level 3. * Procedure Codes: 93517 CAPILLARY BLOOD DRAW. [address]165 GLUCOSE TEST. 70590 GLYCATED HEMOGLOBIN TEST. Modifiers: QW 3044F HG A1C LEVEL LT 7.0%. 3075F SYST BP GE 130 - 139MM HG. 3078F DIAST BP < 80 MM HG. * Electronic signature of Bethany Alexander MD on 03/13/2025 at 08:35 AM EDT Sign off status: Pending * Provider: Mariana Alexander M.D. Date: 0 02/21/2025 Generated for Sherlyn bailey/Bay/Amyitting on: 1 08:35 AM EDT History and Physical Notes * HPI (History of Present Illness) Category Sub-Category Detail Notes Category Not es Endocrinology Recent Blood Sugars Pt here to check up on DM 2 Cardiology Blood Pressure Elevated Pt here for 6 mo checkup on hypertension. Pt states he is doing well and does not have any concerns at this time Examination Category Sub-Category Detail Notes Category Not es Cardiology Lungs: clear, no rales or wheezes HEENT: unremarkable Heart sounds: RRR, normal S1, S2 Extremities: no leg edema Peripheral pulses: 2 plus bilateral General Appearance: pleasant, NAD
[2025-03-13 08:29] VITALS: BP 144/84; PULSE 74; RESP 18; TEMP 36.6; O2SAT 98; BMI 36.2
--- OUTSIDE RECORDS SUMMARY | 2025-03-13 08:35 | XMS_ITS | Patient Health Record ---
Author [facility] Address [address] [facility] [address] [place] [id number] Care Team Providers Care Shearer Operator Name Role Phone Marck Alexanderian Primary Care Provider [phone] Allergies No Known Allergies Results Component Value Reference Range Notes Glycohemoglobin A1c (in hous e) Reviewed date:02/22/2025 11:53:27 AM Interpretation:5.9 Performing Lab: Notes/Report: 5.9 glycohemoglobin 5.9% 5 - 6.5 % Glucose (In-House) Reviewed date:02/22/2025 11:53:27 AM Interpretation:112 Performing Lab: Notes/Report: 112 blood glucose 112 74 - 106 mg/dL P-Microalbumin/Creatinine, R andom Urine Sample Reviewed date:08/25/2024 10:34:40 AM Interpretation:Normal Performing Lab: Notes/Report: Test performed by [facility] [address] [place] [address] , [address], [place] [address] Oli Chavarria MD, Leaf Fat Scraper CLIA: [id number] Albumin/Creatinine Ratio, Urine 4 0-30 ug/m g Microalbumin, Urine, Random 0.3 Creatinine, Urine 70.9 H-TSH Reviewed date:08/22/2024 05:44:57 PM Interpretation:Normal Performing Lab: Notes/Report: TSH 0.93 0.465-4.68 uIU/mL H-Microalbumine/Creatinine Reviewed date:08/24/2024 05:49:03 PM Interpretation: Performing Lab: Notes/Report: H-Lipid Panel Reviewed date:08/22/2024 05:44:57 PM Interpretation:HDL 28, CHLHDL 6.3 Performing Lab: Notes/Report: TRIG 130 30-150 mg/dl CHOL 177 140-200 mg/dl DLDL 121.99 100-129 mg/dL VLDL 26 0-40 mg/dL HDL 28 40-60 mg/dl CHLHDL 6.3 1-3.5 H-CMP Reviewed date:08/22/2024 05:44:57 PM Interpretation:Glu 128 Performing Lab: Notes/Report: NA 139 136-145 mmol/L K 3.9 3.5-5.1 mmoL/L CL 107 98-107 mmol/L CO2 24 22.0-30.0 mmol/L GAP 11.9 5-15 mEq/L BUN 9 9-20 mg/dl CREATT 0.80 0.66-1.25 mg/dl CRCLE 126 50-200 mL/min GFRAA 118 >60 ML/MIN EGFR 98 >60 ml/min GLU 128 74-100 mg/dl CA 9.4 8.4-10.2 mg/dl BILIT 0.6 0.2-1.3 mg/dl AST 24 17-59 U/L ALT 19 12-78 U/L TP 6.8 6.3-8.2 g/dl ALB 4.2 3.5-5.0 g/dl GLOB 2.6 1.3-3.2 g/dL AGRATIO 1.6 1.1-1.8 ALP 48 38-126 U/L H-Glycohemoglobin A1C Reviewed date:08/22/2024 05:44:57 PM Interpretation:6.0% Performing Lab: Notes/Report: HGBA1C 6.0 4.0-6.0 % < 6% Non-Diabetic Level < 7% Controlled Diabetic Level > 8% Poorly Controlled Diabetic Level H-PSA Reviewed date:08/22/2024 05:44:57 PM Interpretation:Normal Performing Lab: Notes/Report: PSASC 2.7 0.0-4.0 ng/ml Reason For Referral No Information Medications Medication SIG (Take, Route, Frequency, Duration) Notes Start Date End Date Status Albuterol Sulfate HFA 108 (90 Base) MCG/ACT 2 puff(s) inhaled every 6 hours as needed 05/31/2022 Active Entyvio 300 MG as directed intraven ously every 8 weeks Active Losartan Potassium 50 MG 1 tablet Orally once daily Active Immunizations Vaccine Route Administration Date Status Comme nts Tetanus Tdap-Adacel (over 7yrs) IM Intramuscular 08/15/2015 Administered Tetanus Tdap-Adacel (over 7yrs) IM Intramuscular 08/15/2019 Administered Hepatitis A (adult) Unknown 02/06/2018 Administered Hepatitis A (adult) Unknown 08/07/2018 Administered Fluzone Quad (6months&older) IM Intramuscular 02/24/2017 Administered Fluzone Quad (6months&older) IM Intramuscular 02/23/2018 Administered Fluzone Quad (6months&older) IM Intramuscular 02/22/2019 Administered Fluzone Quad (6months&older) IM Intramuscular 02/19/2021 Administered Fluzone Quad (6months&older) IM Intramuscular 02/22/2022 Administered Fluzone Quad (6months&older) IM Intramuscular 02/21/2023 Administered Fluzone Quad (6months&older) IM Intramuscular 02/22/2024 Administered Fluzone Quad (6months&older) IM Intramuscular 02/21/2025 Administered Fluzone Intradermal Quad private(18-64yrs) ID Intradermal 02/13/2016 Administered DT, 7 YEARS OR OLDER Unknown 08/07/1996 Administered COVID 19 Kim Unknown 08/06/2020 Administered COVID 19 Kim Unknown 04/17/2021 Administered Problems Problem Type SNOMED Code ICD Code Onset Dates Problem Status W/U Status Risk Notes Problem Essential hypertension (95625797) Essential hypertension (I10) Active confirmed Problem Morbid obesity (978242406) Morbid obesity (E66.01) Active confirmed Problem Type II diabetes mellitus without complication (385612962) Type 2 diabetes mellitus without complication (E11.9) Active confirmed Problem Obesity (066574802) Non morbid obesity due to excess calories (E66.09) Active confirmed Vital Signs Heart Rate 92 /min 02/21/2025 Blood pressure diastolic 90 mm Hg 02/21/2025 Height 70.75 in 02/21/2025 Blood pressure systolic 162 mm Hg 02/21/2025 Weight 258 lbs 02/21/2025 BMI 36.23 kg/m2 02/21/2025 Encounters Encounter Location Date Provider Diagnosis [facility] [address] [place] [id number] 08/22/2024 Zac Alexander Essential hypertensi on I10 ; Type 2 diabetes mellitus without complication E11.9 and Non morbid obesity due to excess calories E66.09 [facility] [address] [place] [id number] 02/21/2025 [facility] Essential hypertensi on I10 ; Type 2 diabetes mellitus without complication E11.9 and Encounter for immunization Z23 [facility] [address] [place] [id number] 08/21/2024 Zac Alexander Type 2 diabetes kerri itus without complication E11.9 ; Essential hypertension I10 and Prostate cancer screening Z12.5 [facility] [address] [place] [id number] 08/22/2024 Zaceddy LopezFairplay [facility] [address] [facility] [address] [place] [id number] 03/05/2025 Zac Alexander Assessments Encounter Date Diagnosis (ICD Code) Assessment Notes Treatment Notes Treatment Clinical Notes Section Notes 08/21/2024 Type 2 diabetes mellitus without complication (ICD-10 - E11.9) 08/22/2024 Essential hypertension (ICD-10 - I10) 08/22/2024 Type 2 diabetes mellitus without complication (ICD-10 - E11.9) 08/21/2024 Essential hypertension (ICD-10 - I10) 02/21/2025 Essential hypertension (ICD-10 - I10) 02/21/2025 Type 2 diabetes mellitus without complication (ICD-10 - E11.9) Conitnue diet control 02/21/2025 Encounter for immunization (ICD-10 - Z23) 08/21/2024 Prostate cancer screening (ICD-10 - Z12.5) 08/22/2024 Non morbid obesity due to excess calories (ICD-10 - E66.09) 08/22/2024 Other Lab results reviewed and results provided to patient in office today (CMP, Lipid & TSH) Plan Of Treatment Next Appt Details Provider Name:Zac sanchez, 08/21/2025 09:15:00 AM, [address], [place], [id number], Insurance Providers Payer Name Payer Address Payer Phone Subscriber Number Group Number Insured Name Patient Relationship to Insured Coverage Start Date Coverage End Date [employer]ON BARNES [address] [place] [address] [id number] Elieser Bush Self - patient is the insured Medical (General) History Medical History History ICD Code Crohn's Disease Hypertension Type 2 Diabetes Surgical History Surgery Date(Month/Year) Colonoscopy 06/09/2015
--- OUTSIDE RECORDS SUMMARY | 2025-03-13 08:35 | XMS_ITS | Clinical Summary ---
Author Organization [facility] Address [address] [place] [address] Care Team Providers Care Counselor Aid Name Role Phone Zac Alexander MD Primary Care Provider + [phone] Allergies No known active allergies Medications losartan (Cozaar) 50 MG tablet TAKE 1 TABLET DAILY. 018 Active Vedolizumab (Entyvio) 108 MG/0.68ML solution pen-injector Inject 108 mg under the skin every 14 (fourteen) days. 1.36 mL 5 024 Active vedolizumab (Entyvio) 300 MG injection RECONSTITUTE WITH 4.8 ML STERILE WATER. ADD 5 ML TO 250 ML NS AND INFUSE 300 MG INTRAVENOUSLY OVER 30 MINUTES EVERY 8 WEEKS 5 mL 6 025 Active bisacodyl (Dulcolax) 5 MG EC tablet Take all 4 tablets at 4 PM on day before colonoscopy . Do not crush, chew, or split. 4 tablet 025 Active polyethylene glycol (Golytely) 236 g solution SEE PHARMACY NOTE FOR PT INSTRUCTIONS 4000 mL 025 Active DWO-EEf-LsYy-Sayda ulf-Na Asc-C 100 g reconstituted solution At 5PM on 03/17 , mix and drink 1st dose. Mix and drink 2nd dose 6hrs before leaving house on 03/18. 1 each 022 2024 Discontinued Active Problems Problem Noted Date Diagnosed Date Type 2 diabetes mellitus without complication Crohn's disease of both smal l and large intestine without complication 05/08/2021 Assessment & Plan (10/30/2024 10:52 AM EDT): - No active disease noted on colonoscopy 03/18/2022. Surveillance colonoscopy recommended in 3 years (due 02/2025). Procedure ordered today. - Continue 300 mg vedolizumab every 8 weeks. His insurance would not approve change to subcutaneous administration. - Routine monitoring labs are being completed and reviewed with infusions every 8 weeks to evaluate for potential leukopenia, anemia, thrombocytopenia, transaminitis, hypoalbuminemia, inflammation, and disease activity. Most recent infusion labs from 10/17/2024 reviewed and essentially unremarkable with the exception of mild, normocytic anemia. Normal vitamin B12 and vitamin D levels 04/2024. - Plan to assess for active intestinal inflammation with fecal calprotectin. - Follow-up in 6 months. Orders: Calprotectin, Fecal by Immunoassay; Future Colonoscopy; Future Follow Up GI; Future Pain, hand joint 11/26/2019 Morbid obesity 06/13/2019 Mild vitamin D deficiency 06/02/2015 Essential hypertension 02/07/2012 Encounters Date Type Department Care Team Description 02/27/2025 Telephone [facility] [address] [place] [address] Saba Boateng PA 01/16/2025 Results Follow-Up [facility] [address] [place] [address] Saba Boateng PA 01/16/2025 Orders Only [facility] [address], [address] [place] [address] Saba Boateng PA from Last 3 Months Immunizations Immunization Administration Dates Next Due Hep A, Adult 08/07/2018,02/06/2018 Influenza, injectable, quadrivalent 01/29,02/21/2023,02/22/2022,2020,02/22/2019,02/23/2018,02/24/2017 Influenza, seasonal, intrade rmal, preservative free 02/13/2016 Kim COVID-19 Vaccine (Bl ue Cap) 18+ 04/17/2021,08/06/2020 TD (adult), 2 Lf tetanus tox oid, preservative free, adsorbed 08/07/1996 Tdap 08/15/2019,08/15/2015 Family History Medical History Relation Name Comments [...] Date Recorded Patient Health Questionnaire-2 Score 0 10/30/2024 PHQ-9 Answer Date Recorded Patient Health Questionnaire-9 Score 0 10/30/2024 PHQ-2A Answer Date Recorded Patient Health Questionnaire-2 Score 0 05/05/2023 Sex and Gender Information Value Date Recorded Sex Assigned at Not on file Legal Sex Male 6:09 PM EDT Gender Identity Not on file Sexual Orientation Not on file Last Filed Vital Signs Vital Sign Reading Time Taken Comments Blood Pressure 150/98 10/30/2024 10:06 AM EDT Pulse 96 10/30/2024 9:41 AM EDT Temperature 36.9 C (98.4 F) 10/30/2024 9:41 AM EDT Respiratory Rate 16 10/30/2024 9:41 AM EDT Oxygen Saturation 95% 10/30/2024 9:41 AM EDT Inhaled Oxygen Concentration - - Weight 119 kg (262 lb 9.1 oz) 10/30/2024 9:41 AM EDT Height 181.6 cm (5' 11.5 ) 10/30/2024 9:41 AM ED T Body Mass Index 36.11 10/30/2024 9:41 AM EDT Plan of Treatment Upcoming Encounters Date Type Department Care Team (Late st Contact Info) Description 03/27/2025 8:00 AM EDT Office Visit [facility] [address] [place] [address] Edith Collins, DO [address] [place] [address] 06/04/2025 10:20 AM EST [facility] [address] [place] [address] Saba Boateng, CITLALY [address] [place] [address] Health Maintenance Due Date Last Done Comments [facility]-Diabetes: Hemoglobin A1C 1961 [facility]-HIV Screening 1961 [facility]-Hepatitis C Screening 1961 [facility]-Infant/Child/Adol SDOH Screenings 1961 Diabetes: Dental Exam 1971 [facility]- SDOH Screenings 1979 [facility]-Adult SDOH Screenings 1979 [facility]-Pneumococcal Vaccine: 50+ Years (1 of 2 - PCV) 1980 CT Colonography 2006 FIT-DNA 2006 FIT 2006 FOBT 2006 Sigmoidoscopy 2006 [facility]-Zoster Vaccines (1 of 2) 2011 [facility]-RSV Vaccine: 60+ Years or (1 - Risk 60-74 years 1-dose series) 2021 [id number]-23 Vaccine (3 - 2024- season) 2025 04/17/2021, 08/06/2020 [facility]-Influenza Vaccine (#1) 01/28/202502/21, 02/21/2023, 02/22/2022, Additional history exists [facility]-Depression Screening 10/30/2025 025, 10/30/2024, 04/27/2022 [facility]-DTaP,Tdap,and Td Vaccines (3 - Td or Tdap) 08/14/2029 08/15/2019, 08/15/2015, 08/07/1996 Colonoscopy 03/27/2035 03/27/2025, 02/28, 03/18/2022, Additional history exists [facility]-Colorectal Cancer Screening 03/27/2035 [facility]-Hepatitis A Vaccines Aged Out 08/07/2018, 01/28 No longer eligible based on patient's age to complete this topic [facility]-Obesity Intervention Completed 025, 05/10/2024, 11/08/2023, Additional history exists HPV Vaccines Aged Out No longer eligi ble based on patient's age to complete this topic [facility]-HIB Vaccines Aged Out No longer e ligible based on patient's age to complete this topic [facility]-IPV Vaccines Aged Out No longer e ligible based on patient's age to complete this topic [facility]-Rotavirus Vaccines Aged Out No lo nger eligible based on patient's age to complete this topic Procedures Procedure Name Priority Date/Time Associated Diagnosis Comments CBC W/O DIFFERENTIAL Routine 01/16/2025 9:37 AM EDT COMPLETE METABOLIC PROFILE (CMP) Routine 01/16/2025 9:37 AM EDT C-REACTIVE PROTEIN, PLASMA Routine 01/16/2025 9:37 AM EDT COLONOSCOPY 03/18/2022 11:06 AM EDT from Last 3 Months or Most Recently Relevant to Health Maintenance Results * COMPLETE METABOLIC PROFILE (CMP) (01/16/2025 9:37 AM EDT) us Saba B Stuffelbeam PA LAB BLOOD ORDERABLES Final Result * CBC W/O Differential (01/16/2025 9:37 AM EDT) Blood Venous blood specimen / Unknown us Saba B Stuffelbeam PA LAB BLOOD ORDERABLES Final Result * C-Reactive Protein, Plasma (01/16/2025 9:37 AM EDT) Blood Venous blood specimen / [...] Most Recently Relevant to Health Maintenance Insurance [facility] Care Teams Counselor Aid Relationship Specialty Start Date End Date Zac Alexander MD [address] [facility] [address] [place] [address] PCP - General 05/05/23
--- OUTSIDE RECORDS SUMMARY | 2025-03-13 08:35 | XMS_ITS | Encounter Summary ---
Author Organization Healthcare Address [address] [place] [address] Care Team Providers Care Factory Worker Name Role Phone Zac Alexander MD Primary Care Provider + [phone] Encounter Details Date Type Department Care Team (Late st Contact Info) Description 12/03/2024 Telephone [facility] [address] [place] [address] Saba Boateng, CITLALY [address] [place] [address] Social History Tobacco Use Types [...] encounter Miscellaneous Notes * Telephone Encounter - Malika Flores - 02/06/2025 11:00 AM EDT Fax received from [facility] No records on file for requested dates * Telephone Encounter - Adilene Mcgrath RN - 02/04/2025 3:01 PM EDT Faxed MR request to [facility] for [facility] 2 infusion note and lab work results: - P: [phone] - F: [phone] - Via [employer] on: 02-04-2025 at 302pm * Telephone Encounter - Adilene Mcgrath RN - 01/23/2025 3:59 PM EDT Reviewed pt's chart: - CBC with diff, CMP, CRP uploaded under Media from 01/16/2025; results have been reviewed by provider - Follow up for week 2 infusion date. * Telephone Encounter - Adilene Mcgrath RN - 01/01/2025 3:41 PM EDT Per second telephone encounter: Miriam Smith 12/28/24 1:26 PM Note Patient has been approved to receive infusion treatment at outside facility. [facility] will follow up with facility to make sure patient has been scheduled and received first dose. Specialty Medication: Entyvio [facility]illing [facility] documented in this encounter Plan of Treatment Upcoming Encounters Date Type Department Care Team (Late st Contact Info) Description 03/27/2025 8:00 AM EDT Office Visit [facility] [address] [place] [address] Edith Collins, DO [address] [place] [address] 06/04/2025 10:20 AM EST Office Visit [facility] Medicine Specialties [address] [place] [address] Saba Boateng, CITLALY [address] [place] [address] documented as of this encounter Visit Diagnoses Not on filedocumented in this encounter Additional Health Concerns Assessment Noted Time PHQ-9 Depression Total Score: 0 10/31/19 25 9:44 AM EDT A fall risk assessment has been complete d for the patient 10/30/2024 9:44 AM EDT A Body Mass Index follow-up plan has been documented for the patient 10/30/2024 10:52 AM EDT documented as of this encounter Care Teams Factory Worker Relationship Specialty Start Date End Date Zac Alexander MD [address] [facility] [address], [place] [address] PCP - General 05/05/23 documented as of this encounter
--- OUTSIDE RECORDS SUMMARY | 2025-03-13 08:35 | XMS_ITS | Encounter Summary ---
Author Organization Healthcare Address [address] [place] [address] Care Team Providers Care Vat House Supervisor Name Role Phone Kilo Sen MD Primary Care Provider +- [phone] Zac Alexander MD Primary Care Provider [phone] Encounter Details Date Type Department Care Team (Late st Contact Info) Description 03/19/2022 Lab Requisition [facility] [address] [place] [address] Don Abernathy MD [address] [place] [address] Crohn's disease, unspecified, without complications (CMS/HCC) Social [...] Description 03/27/2025 8:00 AM EDT Office Visit [facility] [address] [place] [address] Dennis Edith L, DO [address] [place] [address] 06/04/2025 10:20 AM EST Office Visit [facility] [address] [place] [address] Saba Boateng, CITLALY [address] [place] [address] documented as of this encounter Procedures Procedure Name Priority Date/Time Associated Diagnosis Comments SURGICAL PATHOLOGY EXAM Routine 03/18/2022 Crohn's disease, unspecified, without complications (CMS/HCC) documented in this encounter Results * Surgical Pathology Exam (03/18/2022) Case Report Surgical Pathology Case: [id number] Authorizing Provider: Don Abernathy MD Collected: 03/18/2022 Ordering Location: [facility] Lab Received: 03/19/2022 1139 Pathologist: Joan Howe MD Specimen: Colon, Random Colon biopsy 03/22/2022 11:36 AM EDT [facility] Final Diagnosis LARGE INTESTINE, RANDOM COLON, BIOPSY: - NO EVIDENCE OF ACTIVE DISEASE OR DYSPLASIA (CLINICAL HISTORY OF CROHN'S DISEASE). 03/22/2022 11:36 AM EDT [facility] at 1136 EDT Clinical Information K50.90 - Crohn's disease, unspecified, without complications [ICD-10-CM] 03/22/2022 11:36 AM EDT [facility] Gross Description A. RANDOM COLON BIOPSY Received in formalin labeled random colon biopsy , and consists of five grimm/brown soft tissue fragments that measure 0.1-0.3 cm in greatest dimension. Entirely submitted in cassette A1. Desiree Solorio 03/22/2022 11:36 AM EDT [facility] Note: A resident was involved in the service. I attest I examined the relevant preparations for the specimens and confirmed the diagnosis or interpretation. 03/22/2022 11:36 AM EDT [facility] Tissue Colon structure / Unknown 03/18/2022 03/19/2022 11:39 AM EDT us Don Abernathy MD LAB PATHOLOGY ORDERABLES F inal Result [facility] [address] [place] [address] documented in this encounter Visit Diagnoses Diagnosis Crohn's disease, unspecified, without complications (CMS/HCC) documented in this encounter Additional Health Concerns Assessment Noted Time A fall risk assessment has been complete d for the patient 03/24/2021 9:39 AM EDT documented as of this encounter Care Teams Vat House Supervisor Relationship Specialty Start Date End Date Kilo Sen MD [address] [facility] [address] [place], [place] [id number] PCP - General 10/10/20 05/04/23 Zac Alexander MD [address] [facility] [address] [place], [place] [id number] PCP - General 05/05/23 documented as of this encounter
--- OUTSIDE RECORDS SUMMARY | 2025-03-13 08:36 | XMS_ITS | Encounter Summary ---
Author Organization Healthcare Address [address] [place] [address] Care Team Providers Care Um Nurse Name Role Phone Zac Alexander MD Primary Care Provider + [phone] Encounter Details Date Type Department Care Team (Late st Contact Info) Description 02/27/2025 Telephone [facility] [address] [place] [address] Saba Boateng PA [address] [place] [address] Social History Tobacco Use Types [...] encounter Miscellaneous Notes * Telephone Encounter - Anabel Bundy RN - 03/01/2025 12:26 PM EDT Spoke with [facility] pharmacy and there is a planned delivery scheduled for 03/05 * Telephone Encounter - Nimo Resendiz - 02/27/2025 9:21 AM EDT Clinical Concern/Question Reason for Call: [facility] Speciality about scheduling deliver of Entiv[employer] Best contact number: Other: [phone] Optimal time of day to reach caller: ANYTIME Additional comments/information from caller: None Note: Please do not reply to this message. Follow-up communication and further actions as a result of this message need to be communicated with the patient directly, if the patient is not active onMyChart. If the patient is active on MyChart, they will receive notification of the communication/outcome via Zetticshart. documented in this encounter Plan of Treatment Upcoming Encounters Date Type Department Care Team (Late st Contact Info) Description 03/27/2025 8:00 AM EDT Office Visit [facility] [address] [place] [address] Edith Collins, [address] [place] [address] 06/04/2025 10:20 AM EST Office Visit [facility] [address] [place] [address] Saba Boateng, CITLALY [address] [place] [address] documented as of this encounter Visit Diagnoses [...] documented as of this encounter Care Teams Um Nurse Relationship Specialty Start Date End Date Zac Alexander MD [address] [place] [facility] [address] [place] [id number] PCP - General 05/05/23 documented as of this encounter
--- OUTSIDE RECORDS SUMMARY | 2025-03-13 08:36 | XMS_ITS | Encounter Summary ---
Author Organization Healthcare Address [address] [place] [address] Care Team Providers Care Street Vendor Name Role Phone Zac Alexander MD Primary Care Provider + [phone] Encounter Details Date Type Department Care Team (Late st Contact Info) Description 01/16/2025 Results Follow-Up [facility] [address] [place] [address] Saba Boateng, CITLALY [address] [place] [address] Social History Tobacco Use Types [...] Description 03/27/2025 8:00 AM EDT Office Visit [facility] [address] [place] [address] Dennis, Edith L, DO [address] [place] [address] 06/04/2025 10:20 AM EST Office Visit [facility] [address] [place] [address] Saba Boateng, PA [address] [place] [address] documented as of this encounter [...] documented as of this encounter Care Teams Street Vendor Relationship Specialty Start Date End Date Zac Alexander MD [address] [facility] [address] [place] [address] PCP - General 05/05/23 documented as of this encounter
--- OUTSIDE RECORDS SUMMARY | 2025-03-13 08:36 | XMS_ITS | Encounter Summary ---
Author Organization Healthcare Address [address] [place] [address] Care Team Providers Care Tower Attendant Name Role Phone Kilo Sen MD Primary Care Provider +- [phone] Zac Alexander MD Primary Care Provider [phone] Encounter Details Date Type Department Care Team (Late st Contact Info) Description 03/18/2022 Outside Procedure [facility] [address] [place] [address] Provider, External Social History Tobacco Use [...] Description 03/27/2025 8:00 AM EDT Office Visit [facility] [address] [place] [address] Edith Collins, DO [address] [place] [address] 06/04/2025 10:20 AM EST Office Visit [place] [facility] [address] [place] [address] Saba Boateng PA [address] [place] [address] documented as of this encounter [...] documented as of this encounter Care Teams Tower Attendant Relationship Specialty Start Date End Date Kilo Sen MD [address] [facility] [address] [place] [address] PCP - General 10/10/20 05/04/23 Zac Alexander MD [address] [place] [address] PCP - General 05/05/23 documented as of this encounter
--- OUTSIDE RECORDS SUMMARY | 2025-03-13 08:36 | XMS_ITS | Encounter Summary ---
Author Organization Healthcare Address [address] [place] [address] Care Team Providers Care Oil Well Fishing Tool Technician Name Role Phone Zac Alexander MD Primary Care Provider + [phone] Encounter Details Date Type Department Care Team (Late st Contact Info) Description 01/16/2025 Orders Only [facility] [address] [place] [address] Saba Boateng, CITLALY [address] [place] [address] Social History Tobacco Use Types [...] Description 03/27/2025 8:00 AM EDT Office Visit [facility] [address] [place] [address] Dennis, Edith L, DO [address] [place] [address] 06/04/2025 10:20 AM EST Office Visit [facility] [address] [place] [address] Saba Boateng, CITLALY [address] [place] [address] documented as of this encounter Procedures Procedure Name Priority Date/Time Associated Diagnosis Comments COMPLETE METABOLIC PROFILE (CMP) Routine 01/16/2025 9:37 AM EDT CBC W/O DIFFERENTIAL Routine 01/16/2025 9:37 AM EDT C-REACTIVE PROTEIN, PLASMA Routine 01/16/2025 9:37 AM EDT documented in this encounter Results * CBC W/O Differential (01/16/2025 9:37 AM EDT) Blood Venous blood specimen / Unknown us Saba BOUCHER LAB BLOOD ORDERABLES Final Result * COMPLETE METABOLIC PROFILE (CMP) (01/16/2025 9:37 AM EDT) us Saba BOUCHER LAB BLOOD ORDERABLES Final Result * C-Reactive Protein, Plasma (01/16/2025 9:37 AM EDT) Blood Venous blood specimen / Unknown us Saba BOUCHER LAB BLOOD ORDERABLES Final [...] documented as of this encounter Care Teams Oil Well Fishing Tool Technician Relationship Specialty Start Date End Date Zac Alexander MD [address] [place] [address] PCP - General 05/05/23 documented as of this encounter
[2025-03-13 08:44] LABS: Hematocrit 41.8 % (42.0-52.0); Hemoglobin 13.9 g/dL (14.1-18.0); Immature Granulocytes % 0.2 %; Mean Corpuscular HGB Conc 33.3 g/dL (31.8-35.4); Mean Corpuscular Hemoglobin 29.3 pg (27.0-31.2); Mean Corpuscular Volume 88.2 fl (80-94); Nucleated Red Blood Cells % 0 %; Platelet Count 225 K/mm3 (142-424); Red Blood Count 4.74 M/mm3 (4.60-6.20); Red Cell Distribution Width-SD 44.0 fL; White Blood Count 6.6 K/mm3 (4.8-10.8)
[2025-03-13] MEDS: VEDOLIZUMAB 300 MG in 0.9 % SODIUM CHLORIDE 250 ML 500 MG IV (08:56)
[2025-03-13 09:00] VITALS: BP 148/77; PULSE 76; RESP 18; O2SAT 98
[2025-03-13 09:12] LABS: Albumin Level 3.9 g/dl (3.5-5.0); Chloride 105 mmol/L (98-107); Sodium 140 mmol/L (136-145)
[2025-03-13 09:13] LABS: Potassium 4.0 mmoL/L (3.5-5.1)
[2025-03-13 09:15] LABS: Alanine Aminotransferase 19 U/L (12-78); Albumin/Globulin Ratio 1.3 (1.1-1.8); Alkaline Phosphatase 57 U/L (38-126); Anion Gap 11.0 mEq/L (5-15); Aspartate Amino Transferase 28 U/L (17-59); Bilirubin,Total 0.8 mg/dl (0.2-1.3); Blood Urea Nitrogen 7 mg/dl (9-20); Carbon Dioxide 28 mmol/L (22.0-30.0); Creatinine Clearance Estimated 126 mL/min (50-200); Creatinine,Serum 0.70 mg/dl (0.66-1.25); Estimated Glomerular Filt Rate 114 ml/min (>60); GFR (African American) 138 ML/MIN (>60); Globulin 3.0 g/dL (1.3-3.2); Total Protein,Serum 6.9 g/dl (6.3-8.2)
[2025-03-13 09:16] LABS: Calcium 8.5 mg/dl (8.4-10.2); Glucose 121 mg/dl (74-100)
[2025-03-13 11:44] LABS: C-Reactive Protein 0.3 mg/L (0-4)
== END 2025-03-13 23:59 | disposition home or self-care (01) ==
LOC: INF 08:28
PROVIDERS: PCP Family Medicine; Visit Provider Physician Assistant
DX: K50.80 Crohn's disease of both small and large intestine without complications (principal)
CPT/HCPCS: 80053; 85025; 86140; 96365; J3380

== ENCOUNTER 2025-05-08 08:23 | Outpatient (CLI) | payer BC, SELFPAY ==
[2025-05-08 08:25] VITALS: BMI 44.6
[2025-05-08 08:48] LABS: Hematocrit 43.5 % (42.0-52.0); Hemoglobin 14.1 g/dL (14.1-18.0); Immature Granulocytes % 0.3 %; Mean Corpuscular HGB Conc 32.4 g/dL (31.8-35.4); Mean Corpuscular Hemoglobin 28.4 pg (27.0-31.2); Mean Corpuscular Volume 87.5 fl (80-94); Nucleated Red Blood Cells % 0 %; Platelet Count 232 K/mm3 (142-424); Red Blood Count 4.97 M/mm3 (4.60-6.20); Red Cell Distribution Width-SD 43.4 fL; White Blood Count 6.4 K/mm3 (4.8-10.8)
[2025-05-08 09:01] VITALS: BP 145/81; PULSE 76; RESP 17; O2SAT 95
[2025-05-08] MEDS: VEDOLIZUMAB 300 MG in 0.9 % SODIUM CHLORIDE 250 ML 500 MG IV (09:01)
[2025-05-08 09:14] LABS: Alanine Aminotransferase 18 U/L (12-78); Albumin Level 4.0 g/dl (3.5-5.0); Albumin/Globulin Ratio 1.3 (1.1-1.8); Alkaline Phosphatase 55 U/L (38-126); Anion Gap 11.1 mEq/L (5-15); Aspartate Amino Transferase 22 U/L (17-59); Bilirubin,Total 0.6 mg/dl (0.2-1.3); Blood Urea Nitrogen 11 mg/dl (9-20); Calcium 9.2 mg/dl (8.4-10.2); Carbon Dioxide 25 mmol/L (22.0-30.0); Chloride 108 mmol/L (98-107); Creatinine Clearance Estimated 63 mL/min (50-200); Creatinine,Serum 0.80 mg/dl (0.66-1.25); Estimated Glomerular Filt Rate 98 ml/min (>60); GFR (African American) 118 ML/MIN (>60); Globulin 3.1 g/dL (1.3-3.2); Glucose 117 mg/dl (74-100); Potassium 4.1 mmoL/L (3.5-5.1); Sodium 140 mmol/L (136-145); Total Protein,Serum 7.1 g/dl (6.3-8.2)
[2025-05-08 09:19] LABS: C-Reactive Protein 0.5 mg/L (0-4)
[2025-05-08 09:31] VITALS: BP 134/76; PULSE 78; RESP 16
== END 2025-05-08 23:59 | disposition home or self-care (01) ==
LOC: INF 08:25
PROVIDERS: PCP Family Medicine; Visit Provider Physician Assistant
DX: K50.10 Crohn's disease of large intestine without complications (principal)
CPT/HCPCS: 80053; 85025; 86140; 96365; J3380